=== PATIENT | male | born 1955 | race Hispanic/Latino ===

== ENCOUNTER 2017-08-01 14:17 | Emergency (ER) | payer SELFPAY ==
[~2017-08-01] VITALS: Ht 162.6 cm; Wt 68.0 kg
[2017-08-01 15:32] LABS: BASOPHILS # (AUTO) 0.1 (0.0-0.1); BASOPHILS % 0.7 % (0.0-1.0); EOSINOPHILS % 0.4 % (0.0-6.0); HEMATOCRIT 40.3 % (38.2-49.6); HEMOGLOBIN 14.3 g/dL (14.0-18.0); LYMPHOCYTES % 14.1 % (18.0-39.1); MEAN CORPUSCULAR HEMOGLOBIN 35.7 pg (28-32); MEAN CORPUSCULAR HGB CONC 35.5 g/dL (31-35); MEAN CORPUSCULAR VOLUME 100.5 fL (81-99); MONOCYTES # (AUTO) 0.7 (0.2-0.8); MONOCYTES % 10.1 % (4.4-11.3); NEUTROPHILS # (AUTO) 5.5 (2.1-6.9); NEUTROPHILS % 74.2 % (38.7-80.0); PLATELET COUNT 175 x10e3/uL (140-360); RED BLOOD COUNT 4.01 x10e6/uL (4.3-5.7); RED CELL DISTRIBUTION WIDTH 12.5 % (11.7-14.4)
[2017-08-01 15:36] LABS: INR 1.05; PARTIAL THROMBOPLASTIN TIME 28.6 seconds (23.8-35.5); PROTHROMBIN TIME 14.2 seconds (11.9-14.5)
[2017-08-01 15:43] LABS: ALANINE AMINOTRANSFERASE 37 IU/L (0-55); ALBUMIN 2.5 g/dL (3.5-5.0); ALBUMIN/GLOBULIN RATIO 0.6 (0.8-2.0); ALKALINE PHOSPHATASE 357 IU/L (40-150); ANION GAP 13.7 mmol/L (8-16); BLOOD UREA NITROGEN < 5 mg/dL (7-26); BUN/CREATININE RATIO 9 (6-25); CALCIUM 8.1 mg/dL (8.4-10.2); CARBON DIOXIDE 25 mmol/L (22-29); CHLORIDE 93 mmol/L (98-107); CREATININE, SERUM 0.57 mg/dL (0.72-1.25); EST GLOMERULAR FILTRATION RATE > 60 ML/MIN (60-); GLUCOSE 102 mg/dL (74-118); POTASSIUM 3.7 mmol/L (3.5-5.1); SODIUM 128 mmol/L (136-145)
--- NOTE | 2017-08-01 16:11 | Diagnostic Imaging Report ---
PROCEDURE: Frontal and lateral views of the chest. COMPARISON: None. INDICATIONS: SWOLLEN FEET, SICK TO STOMACH FINDINGS: Lines/tubes: None. Lungs: The lungs are well inflated and clear. There is no evidence of pneumonia or pulmonary edema. Mild left basilar subsegmental atelectasis. Pleura: There is no pleural effusion or pneumothorax. Heart and mediastinum: The heart and the mediastinum are normal. Aorta is mildly calcified and tortuous. Bones: No acute bony abnormality. IMPRESSION: 1. No acute cardiopulmonary disease. Dictated by: Herve Wallace M.D. on 08/01/2017 at 16:20 Electronically approved by: Herve Wallace M.D. on 08/01/2017 at 16:20
[2017-08-01 16:16] LABS: BILIRUBIN,URINE 1+ (NEGATIVE); CLARITY,URINE CLEAR (CLEAR); COLOR,URINE YELLOW (YELLOW); KETONES,URINE NEGATIVE (NEGATIVE); LEUKOCYTE ESTERASE ,URINE NEGATIVE (NEGATIVE); NITRITE,URINE NEGATIVE (NEGATIVE); PROTEIN,URINE DIPSTICK 2+ (NEGATIVE); URINE UROBILINOGEN 1 mg/dL (0.2 - 1)
[2017-08-01] MEDS ORDERED: IBUPROFEN 600 MG TAB PO STA (22:17)
[2017-08-01 22:29] LABS: AMYLASE 53 U/L (25-125); LIPASE 26 U/L (8-78)
[2017-08-01] MEDS ORDERED: MULTIVITAMINS- 12 INJECTION 10 ML, FOLIC ACID MDV 5 MG, THIAMINE HCL INJ 100 MG in SODI... IV ONE (22:30)
[2017-08-01] MEDS ORDERED: CHLORDIAZEPOXIDE HCL 25 MG CAP PO ONE (22:30)
[2017-08-01] MEDS ORDERED: SODIUM CHLORIDE 0.9% 50ML 50 ML ONE (23:27)
[2017-08-01] MEDS ORDERED: IOPAMIDOL 370 MG/ML 200 ML INFUS..BTL INJ ONE (23:28)
--- NOTE | 2017-08-02 00:19 | Diagnostic Imaging Report ---
EXAM: CT Abdomen and Pelvis WITH contrast INDICATION: Abdominal pain, swollen feet, prominent stomach COMPARISON: None. TECHNIQUE: Abdomen and pelvis were scanned utilizing a multidetector helical scanner from the lung base to the pubic symphysis after administration of IV contrast. Coronal and sagittal reformations were obtained. Routine protocol was performed. Scan was performed when during portal venous phase. IV CONTRAST: 100 mL of Isovue-370 ORAL CONTRAST: None RADIATION DOSE: Total DLP: 402.17 mGy*cm Estimated effective dose: (DLP x 0.015 x size factor) mSv COMPLICATIONS: None FINDINGS: LINES and TUBES: None. LOWER THORAX: Coronary artery calcifications are present. HEPATOBILIARY: The liver is diffuse hypodense compared to the spleen, consistent with diffuse hepatic diffuse hepatic steatosis. Areas of hypervascularity noted in segment 7 of the liver measuring 2.2 cm in diameter, series 2, image 11 and segment 6 measuring 2.7 cm in diameter series 2, image 32. The liver is mildly nodular. No biliary ductal dilation. GALLBLADDER: No radio-opaque stones or sludge. No wall thickening. SPLEEN: No splenomegaly. PANCREAS: No focal masses or ductal dilatation. ADRENALS: No adrenal nodules KIDNEYS/URETERS: Kidneys enhance symmetrically. No hydronephrosis. No cystic or solid mass lesions. No stones. GI TRACT: No abnormal distention, wall thickening, or evidence of bowel obstruction. Appendix is normal. PELVIC ORGANS/BLADDER: Unremarkable. LYMPH NODES: No lymphadenopathy. VESSELS: There is moderate atherosclerotic disease in the aorta and major arterial branches. PERITONEUM / RETROPERITONEUM: There is significant amount of free fluid in the abdomen. BONES: Unremarkable. SOFT TISSUES: Intramuscular lipoma at the level of the mid right iliacus muscle IMPRESSION: 1. Mildly nodular liver with areas of hypervascularity, ascites and anasarca are compatible with cirrhosis. Hypervascular masses in the liver may represent HCC in the appropriate clinical context. 2. Moderate atherosclerotic disease of the thoracoabdominal aorta and coronary vessels. Signed by: Dr. Hima Dhaliwal M.D. on 08/02/2017 12:15 AM
[2017-08-02] MEDS ORDERED: THIAMINE HCL INJ 100 MG/ML 2ML VIAL ONE (01:26)
[2017-08-02] MEDS ORDERED: MULTIVITAMINS INJECTION ONE (01:26)
[2017-08-02] MEDS ORDERED: SODIUM CHLORIDE 0.9% 1000ML 1,000 ML ONE (01:26)
== END 2017-08-02 04:42 | disposition home or self-care (01) ==
LOC: ER 14:17
DX: R10.30 Lower abdominal pain, unspecified (principal); R10.815 Periumbilic abdominal tenderness; K70.31 Alcoholic cirrhosis of liver with ascites; F10.19 Alcohol abuse with unspecified alcohol-induced disorder; R60.9 Edema, unspecified; I25.10 Atherosclerotic heart disease of native coronary artery without angina pectoris
CPT/HCPCS: 36415; 71020; 74177; 80053; 80320; 81001; 82140; 82150; 83690; 85025; 85610; 85730; 86850; 86900; 87086; 93005; 99284; J3411; J7030; Q9967

== ENCOUNTER 2017-09-23 17:51 | Inpatient (IN) | payer SELFPAY ==
[~2017-09-23] VITALS: Ht 165.1 cm; Wt 67.1 kg
--- OUTSIDE RECORDS SUMMARY | 2017-09-23 17:53 | XMS REPORT ---
Author Author [facility] Address Unknown Phone Unavailable Care Team Providers Care Billing Supervisor Name Role Phone ROSALINA MAN Unavailable Unavailable Problems This patient has no known problems. Allergies, Adverse Reactions, Alerts This patient has no known allergies or adverse reactions. Medications This patient has no known medications. Results Test Description Test Time Test Comments Text Results Atomic Results Result Comments CT ABDOMEN/PELVIS W [place] [address] Patient Name: MALIHA VALENTIN MR #: [id number] : 1955 Age/Sex: 61/M Req #: [id number] Adm Physician: Ordered by: TYLOR DE LA CRUZ MD Report # : [id number] Location: ER Room/Bed: Procedure: [id number] CT/CT ABDOMEN/PELVIS W Exam Date: 08/01/17 Exam Time: 2328 REPORT STATUS: Signed EXAM: CT Abdomen and Pelvis WITH contrast INDICATION: Abdominal pain, swollen feet, prominent stomach COMPARISON: None. TECHNIQUE: Abdomen and pelvis were scanned utilizing a multidetector helical scanner from the lung base to the pubic symphysis after administration of IV contrast. Coronal and sagittal reformations were obtained. Routine protocol was performed. Scan was performed when during portal venous phase. IV CONTRAST: 100 mL of Isovue-370 ORAL CONTRAST: None RADIATION DOSE: Total DLP: 402.17 mGy*cm Estimated effective dose: (DLP x 0.015 x size factor) mSv COMPLICATIONS: None FINDINGS: LINES and TUBES: None. LOWER THORAX: Coronary artery calcifications are present. HEPATOBILIARY: The liver is diffuse hypodense compared to the spleen, consistent with diffuse hepatic diffuse hepatic steatosis. Areas of hypervascularity noted in segment 7 of the liver measuring 2.2 cm in diameter, series 2, image 11 and segment 6 measuring 2.7 cm in diameter series 2, image 32. The liver is mildly nodular. No biliary ductal dilation. GALLBLADDER: No radio-opaque stones or sludge. No wall thickening. SPLEEN: No splenomegaly. PANCREAS: No focal masses or ductal dilatation. ADRENALS: No adrenal nodules KIDNEYS/URETERS: Kidneys enhance symmetrically. No hydronephrosis. No cystic or solid mass lesions. No stones. GI TRACT: No abnormal distention, wall thickening, or evidence of bowel obstruction. Appendix is normal. PELVIC ORGANS/BLADDER: Unremarkable. LYMPH NODES: No lymphadenopathy. VESSELS: There is moderate atherosclerotic disease in the aorta and major arterial branches. PERITONEUM / RETROPERITONEUM: There is significant amount of free fluid in the abdomen. BONES: Unremarkable. SOFT TISSUES: Intramuscular lipoma at the level of the mid right iliacus muscle IMPRESSION: 1. Mildly nodular liver with areas of hypervascularity, ascites and anasarca are compatible with cirrhosis. Hypervascular masses in the liver may represent HCC in the appropriate clinical context. 2. Moderate atherosclerotic disease of the thoracoabdominal aorta and coronary vessels. Signed by: Dr. Hima Dhaliwal M.D. on 08/02/2017 12:15 AM Dictated By: HIMA VAZQUEZ MD Transcribed By: URSULA on 08/02/1714 COPY TO: TYLOR DE LA CRUZ MD CHEST 2 VIEWS [place] [address] Patient Name: MALIHA VALENTIN MR #: [id number] : 1955 Age/Sex: 61/M Req #: [id number] Adm Physician: Ordered by: ROSALINA MAN MD Report #: [id number] Location: ER Room/Bed: Procedure: [id number] DX/CHEST 2 VIEWS Exam Date: Exam Time: REPORT STATUS: Signed PROCEDURE: Frontal and lateral views of the chest. COMPARISON: None. INDICATIONS: SWOLLEN FEET, SICK TO STOMACH FINDINGS: Lines/tubes: None. Lungs: The lungs are well inflated and clear. There is no evidence of pneumonia or pulmonary edema. Mild left basilar subsegmental atelectasis. Pleura: There is no pleural effusion or pneumothorax. Heart and mediastinum: The heart and the mediastinum are normal. Aorta is mildly calcified and tortuous. Bones: No acute bony abnormality. IMPRESSION: 1. No acute cardiopulmonary disease. Dictated by: Herve Quinonez M.D. on 08/01/2017 at 16:20 Electronically approved by: Herve Quinonez M.D. on 08/01/2017 at 16:20 Dictated By: HERVE QUINONEZ MD 162 Transcribed By: FIDELINA on 08/01/17 1620 COPY TO: ROSALINA MAN MD
[2017-09-23] MEDS ORDERED: ACETAMINOPHEN 325 MG TAB PO STA (18:50)
[2017-09-23 19:25] LABS: BASOPHILS % 0.3 % (0.0-1.0); EOSINOPHILS # (AUTO) 0.1 (0.0-0.4); EOSINOPHILS % 0.5 % (0.0-6.0); HEMATOCRIT 44.2 % (38.2-49.6); HEMOGLOBIN 15.8 g/dL (14.0-18.0); LYMPHOCYTES # (AUTO) 1.6 (1.0-3.2); LYMPHOCYTES % 13.7 % (18.0-39.1); MEAN CORPUSCULAR HEMOGLOBIN 34.6 pg (28-32); MEAN CORPUSCULAR HGB CONC 35.7 g/dL (31-35); MEAN CORPUSCULAR VOLUME 96.9 fL (81-99); MONOCYTES # (AUTO) 1.2 (0.2-0.8); MONOCYTES % 10.5 % (4.4-11.3); NEUTROPHILS # (AUTO) 8.6 (2.1-6.9); NEUTROPHILS % 74.7 % (38.7-80.0); PLATELET COUNT 192 x10e3/uL (140-360); RED BLOOD COUNT 4.56 x10e6/uL (4.3-5.7); RED CELL DISTRIBUTION WIDTH 12.3 % (11.7-14.4)
[2017-09-23 19:29] LABS: BILIRUBIN,URINE 2+ (NEGATIVE); CLARITY,URINE SL CLOUDY (CLEAR); COLOR,URINE ORANGE (YELLOW); KETONES,URINE 1+ (NEGATIVE); LEUKOCYTE ESTERASE ,URINE 1+ (NEGATIVE); NITRITE,URINE POSITIVE (NEGATIVE); PROTEIN,URINE DIPSTICK 1+ (NEGATIVE); URINE UROBILINOGEN 12 mg/dL (0.2 - 1)
[2017-09-23 19:36] LABS: INR 1.36; PROTHROMBIN TIME 15.8 seconds (11.9-14.5)
[2017-09-23 19:37] LABS: PARTIAL THROMBOPLASTIN TIME 31.4 seconds (23.8-35.5)
[2017-09-23 19:40] LABS: EPITHELIAL CELLS,URINE FEW /LPF; MUCUS,URINE MODERATE (RARE); WBC,URINE (MAN) 0-5 /HPF (0-5)
[2017-09-23 19:43] LABS: ALANINE AMINOTRANSFERASE 11 IU/L (0-55); ALBUMIN/GLOBULIN RATIO 0.8 (0.8-2.0); ALKALINE PHOSPHATASE 98 IU/L (40-150); ANION GAP 12.8 mmol/L (8-16); BLOOD UREA NITROGEN < 5 mg/dL (7-26); CALCIUM 8.7 mg/dL (8.4-10.2); CARBON DIOXIDE 26 mmol/L (22-29); CHLORIDE 99 mmol/L (98-107); CREATININE, SERUM 0.54 mg/dL (0.72-1.25); EST GLOMERULAR FILTRATION RATE > 60 ML/MIN (60-); GLUCOSE 116 mg/dL (74-118); SODIUM 135 mmol/L (136-145)
--- NOTE | 2017-09-23 19:51 | Diagnostic Imaging Report ---
EXAMINATION: CHEST 2 VIEWS INDICATION: \S\SEPSIS \[id number] \S\1910 \S\Y COMPARISON: CT abdomen and pelvis from 08/01/2017 and chest radiograph from 08/01/2017 FINDINGS: PA and lateral views TUBES and LINES: None. LUNGS: Lungs are well inflated. Mild atelectasis in the left lower lobe. There is no evidence of pneumonia or pulmonary edema. PLEURA: No pleural effusion or pneumothorax. HEART AND MEDIASTINUM: The cardiomediastinal silhouette is unremarkable. Coronary stent. BONES AND SOFT TISSUES: No acute osseous lesion. Soft tissues are unremarkable. UPPER ABDOMEN: No free air under the diaphragm. Persistent mild elevation of the right hemidiaphragm. IMPRESSION: No acute thoracic abnormality. Signed by: Dr. Oriana Gutierrez M.D. on 09/23/2017 7:48 PM
[2017-09-23 19:52] LABS: BUN/CREATININE RATIO 9 (6-25)
[2017-09-23 19:53] LABS: POTASSIUM 2.8 mmol/L (3.5-5.1)
[2017-09-23 19:58] LABS: CREATINE KINASE MB 0.7 ng/mL (0-5.0)
[2017-09-23 20:22] LABS: AMYLASE 22 U/L (25-125); LIPASE 7 U/L (8-78)
[2017-09-23] MEDS ORDERED: METRONIDAZOLE 500MG/NS 100ML IV SCH (20:30)
[2017-09-23] MEDS ORDERED: CEFEPIME HCL 2 GM VIAL IV SCH (20:30)
[2017-09-23] MEDS ORDERED: ACETAMINOPHEN 325 MG TAB PO PRN (20:30)
[2017-09-23] MEDS ORDERED: KCL 20MEQ/.9 SOD CHL 1,000 ML IV ONE (20:30)
[2017-09-23] MEDS: CEFEPIME HCL 2 GM VIAL IV SCH (21:15)
[2017-09-23] MEDS: METRONIDAZOLE 500MG/NS 100ML 100 ML IV SCH (22:22)
[2017-09-23 22:45] VITALS: BP 204/79
[2017-09-24] VITALS (8 sets, daily range): BP systolic 123–204; BP diastolic 79–99
[2017-09-24] MEDS: METRONIDAZOLE 500MG/NS 100ML 100 ML IV SCH ×4 (03:00→20:32)
[2017-09-24 07:56] LABS: BASOPHILS % 0.5 % (0.0-1.0); EOSINOPHILS # (AUTO) 0.1 (0.0-0.4); EOSINOPHILS % 0.8 % (0.0-6.0); HEMATOCRIT 40.2 % (38.2-49.6); HEMOGLOBIN 14.3 g/dL (14.0-18.0); LYMPHOCYTES # (AUTO) 1.2 (1.0-3.2); LYMPHOCYTES % 14.8 % (18.0-39.1); MEAN CORPUSCULAR HEMOGLOBIN 34.5 pg (28-32); MEAN CORPUSCULAR HGB CONC 35.6 g/dL (31-35); MEAN CORPUSCULAR VOLUME 97.1 fL (81-99); MONOCYTES % 11.6 % (4.4-11.3); NEUTROPHILS % 72.1 % (38.7-80.0); PLATELET COUNT 153 x10e3/uL (140-360); RED BLOOD COUNT 4.14 x10e6/uL (4.3-5.7); RED CELL DISTRIBUTION WIDTH 12.3 % (11.7-14.4)
[2017-09-24 08:21] LABS: ALANINE AMINOTRANSFERASE 9 IU/L (0-55); ALBUMIN 2.5 g/dL (3.5-5.0); ALBUMIN/GLOBULIN RATIO 0.8 (0.8-2.0); ALKALINE PHOSPHATASE 84 IU/L (40-150); BLOOD UREA NITROGEN 5 mg/dL (7-26); BUN/CREATININE RATIO 11 (6-25); CARBON DIOXIDE 24 mmol/L (22-29); CHLORIDE 104 mmol/L (98-107); CREATININE, SERUM 0.46 mg/dL (0.72-1.25); EST GLOMERULAR FILTRATION RATE > 60 ML/MIN (60-); GLUCOSE 112 mg/dL (74-118); SODIUM 137 mmol/L (136-145)
[2017-09-24] MEDS ORDERED: HYDRALAZINE HCL 20 MG/ML VIAL IV PRN (08:30)
[2017-09-24] MEDS ORDERED: METOPROLOL TARTRATE INJ 1 MG/ML VIAL IV PRN (08:30)
[2017-09-24] MEDS: CEFEPIME HCL 2 GM VIAL IV SCH ×2 (09:11→20:32)
[2017-09-24] MEDS: POTASSIUM CHLORIDE 20 MEQ TAB CR PO SCH ×2 (09:11→17:35)
[2017-09-24] MEDS ORDERED: MAGNESIUM SULFATE 2GM/50ML IV ONE (16:30)
[2017-09-24] MEDS ORDERED: LORAZEPAM INJ 2 MG/ML VIAL IV PRN (16:30)
[2017-09-24] MEDS ORDERED: MAGNESIUM SULFATE 2GM/50ML 50 ML IV ONE (17:00)
[2017-09-24] MEDS ORDERED: POTASSIUM CHLORIDE 20 MEQ TAB CR PO ONE (17:00)
[2017-09-24] MEDS: PANTOPRAZOLE SOD 40 MG TABEC PO SCH (17:34)
[2017-09-24] MEDS: METOPROLOL TARTRATE 25 MG TAB PO SCH ×2 (17:34→20:18)
[2017-09-24] MEDS ORDERED: SODIUM CHLORIDE 0.9% 1000ML 1,000 ML ONE ×2 (20:11→20:13)
[2017-09-25] MEDS: METRONIDAZOLE 500MG/NS 100ML 100 ML IV SCH ×4 (03:09→20:36)
[2017-09-25 04:00] VITALS: BP 123/71
[2017-09-25 07:10] VITALS: BP 140/91
[2017-09-25 07:29] VITALS: BP 140/91
[2017-09-25] MEDS: PANTOPRAZOLE SOD 40 MG TABEC PO SCH (07:56)
[2017-09-25 08:13] LABS: BASOPHILS % 0.7 % (0.0-1.0); EOSINOPHILS # (AUTO) 0.1 (0.0-0.4); EOSINOPHILS % 1.4 % (0.0-6.0); HEMATOCRIT 41.2 % (38.2-49.6); HEMOGLOBIN 14.5 g/dL (14.0-18.0); LYMPHOCYTES # (AUTO) 1.4 (1.0-3.2); LYMPHOCYTES % 24.4 % (18.0-39.1); MEAN CORPUSCULAR HEMOGLOBIN 34.7 pg (28-32); MEAN CORPUSCULAR HGB CONC 35.2 g/dL (31-35); MEAN CORPUSCULAR VOLUME 98.6 fL (81-99); MONOCYTES # (AUTO) 0.8 (0.2-0.8); MONOCYTES % 13.7 % (4.4-11.3); NEUTROPHILS # (AUTO) 3.5 (2.1-6.9); NEUTROPHILS % 59.6 % (38.7-80.0); PLATELET COUNT 157 x10e3/uL (140-360); RED BLOOD COUNT 4.18 x10e6/uL (4.3-5.7); RED CELL DISTRIBUTION WIDTH 12.5 % (11.7-14.4)
[2017-09-25 08:27] LABS: INR 1.62; PROTHROMBIN TIME 18.1 seconds (11.9-14.5)
[2017-09-25 08:36] LABS: ANION GAP 12.5 mmol/L (8-16); BLOOD UREA NITROGEN < 5 mg/dL (7-26); CALCIUM 8.1 mg/dL (8.4-10.2); CARBON DIOXIDE 21 mmol/L (22-29); CHLORIDE 108 mmol/L (98-107); CREATININE, SERUM 0.47 mg/dL (0.72-1.25); EST GLOMERULAR FILTRATION RATE > 60 ML/MIN (60-); GLUCOSE 97 mg/dL (74-118); MAGNESIUM 1.5 MG/DL (1.3-2.1); POTASSIUM 3.5 mmol/L (3.5-5.1); SODIUM 138 mmol/L (136-145)
[2017-09-25 08:41] LABS: BUN/CREATININE RATIO 11 (6-25)
[2017-09-25] MEDS: POTASSIUM CHLORIDE 20 MEQ TAB CR PO SCH ×2 (09:09→17:26)
[2017-09-25] MEDS: CEFEPIME HCL 2 GM VIAL IV SCH ×2 (09:09→20:36)
[2017-09-25] MEDS: METOPROLOL TARTRATE 25 MG TAB PO SCH ×2 (09:10→20:37)
[2017-09-25 10:11] LABS: FREE T4 (FREE THYROXINE) 1.15 ng/dL (0.9-1.8); THYROID STIMULATING HORMONE 3.817 uIU/mL (0.350-4.940)
[2017-09-25 11:22] VITALS: BP 120/81
--- NOTE | 2017-09-25 15:27 | History and Physical ---
PRIMARY CARE PROVIDER: Dr. Titus Schofield CHIEF COMPLAINT: Fever, chills, and diarrhea. HISTORY OF PRESENT ILLNESS: Mr. Mccarthy is a 61-year-old gentleman who has alcohol-induced cirrhosis, who has developed ascites. He had a paracentesis done in July 2 months ago, it has reaccumulated. He presents with abdominal pain, distention related to the ascites, but also with fever, chills, and diarrhea that has been going on for the last couple of days with cramping abdominal pain. REVIEW OF SYSTEMS: He has had subjective fever and chills. HE denies sinus congestion or sore throat. He denies chest pain or palpitations. He denies shortness of breath, wheezing, or cough. He has abdominal pain with diarrhea. He denies nausea, vomiting, but he does have some abdominal distention and ascites and a history of cirrhosis. He denies bleeding or bruising. He denies rash or pruritus. He denies joint pain or swelling. He denies headache, vertigo, or loss of consciousness. He denies depression, agitation, homicidal or suicidal ideation. He is an active alcoholic. PAST MEDICAL HISTORY: Significant for long-standing hypertension, coronary artery disease with previous coronary stents, hyperlipidemia, and alcohol-induced cirrhosis. MEDICATIONS: The patient does not know what medicine he is taking if any. PAST SURGICAL HISTORY: He denies any previous surgery except for the coronary stent. ALLERGIES: HE HAS NO KNOWN DRUG ALLERGIES. FAMILY HISTORY: Remarkable for hypertension. SOCIAL HISTORY: The patient is . He is bilingual, speaks good Swedish. He continues to drink hard liquor on a daily basis. He also continues to smoke on a daily basis. He is . He is here with his . He is independently functioning. PHYSICAL EXAMINATION: PSYCHIATRIC: He is alert and oriented x3 with normal mood and affect. CONSTITUTIONAL: He has a normal body habitus, may be a little overweight. He is in no acute distress. VITAL SIGNS: As follows: Blood pressure 151/99, pulse 103 and regular, respiratory rate 16, O2 sat 96% on room air. Temperature 96.4. His T-max 100.7 on admission. HEENT: His head is atraumatic. His eyes are anicteric with clear conjunctivae. Ears and nares are without erythema or discharge. Oropharynx is clear. NECK: Supple with no mass or thyromegaly. LYMPHATIC SYSTEM: He has no palpable cervical, axillary, or inguinal adenopathy. CARDIOVASCULAR SYSTEM: His heart has a regular rate and rhythm without murmur or extra heart sounds. He has no carotid bruit. He has no peripheral edema. He has weak dorsal pedal pulses. RESPIRATORY: Lungs are clear to auscultation and percussion with normal respiratory effort. GASTROINTESTINAL: His abdomen is moderate to markedly distended, tense ascites with a fluid wave. He has no hepatosplenomegaly or masses palpable, and normal bowel sounds are present. He has some mild diffuse tenderness with no rebound or guarding. CUTANEOUS: His skin is warm and dry to touch with no rash or skin breakdown. MUSCULOSKELETAL: His joints are in normal alignment without erythema or swelling. He has no calf tenderness. NEUROLOGIC: Nonfocal with intact cranial nerves and no motor or sensory deficits. DIAGNOSTIC STUDIES: Chest x-ray shows no acute disease. His UA is clear. His troponin 0.017, which is normal. Lactic acid 15.3, which is normal. Chemistry shows a potassium of 2.8, the rest of his electrolytes are normal. CO2 26, creatinine 0.54, BUN 5 for a normal GFR, calcium 8.7, glucose 116. Amylase 22, lipase 7, bilirubin 1.4. His transaminases and alk phos are normal. Pro time is 15.8 with an INR of 1.36 and PTT of 31.4. CBC shows a white count of 11.58 with 75% neutrophils, 14% lymphocytes, hemoglobin of 15.8, hematocrit 44.2, and platelet count 192,000. IMPRESSION AND PLAN: 1. Enterocolitis. The patient is started on intravenous cefepime and Flagyl empirically. 2. Cirrhosis with tense ascites. Ultrasound-guided paracentesis has been ordered. 3. Coagulopathy due to cirrhosis. Patient's INR 1.36, should be adequate for the patient to get a paracentesis. Will hold off any fresh frozen plasma or factors at the moment. 4. Hypertension with coronary artery disease. The patient will be getting p.r.n. intravenous hydralazine and metoprolol. Will place the patient on scheduled beta radha. Will hold his aspirin at this time until after his paracentesis. 5. Hypokalemia. Will check a magnesium level and replace potassium with both intravenous and p.o. potassium. 6. For prophylaxis, the patient will be on Protonix for gastrointestinal prophylaxis. No need for deep venous thrombosis prophylaxis as he is already auto anticoagulated. Job#: [id number]
[2017-09-25 15:30] VITALS: BP 129/91
[2017-09-25] MEDS ORDERED: MAGNESIUM SULFATE 2GM/50ML 50 ML IV ONE (18:00)
[2017-09-25 20:00] VITALS: BP 147/97
[2017-09-26] VITALS: BP 113/81
[2017-09-26] MEDS: METRONIDAZOLE 500MG/NS 100ML 100 ML IV SCH ×3 (03:00→17:10)
[2017-09-26 04:00] VITALS: BP 137/83
[2017-09-26 06:54] LABS: ANION GAP 10.6 mmol/L (8-16); BLOOD UREA NITROGEN 5 mg/dL (7-26); BUN/CREATININE RATIO 10 (6-25); CARBON DIOXIDE 22 mmol/L (22-29); CHLORIDE 107 mmol/L (98-107); CREATININE, SERUM 0.52 mg/dL (0.72-1.25); EST GLOMERULAR FILTRATION RATE > 60 ML/MIN (60-); GLUCOSE 114 mg/dL (74-118); MAGNESIUM 1.5 MG/DL (1.3-2.1); POTASSIUM 3.6 mmol/L (3.5-5.1); SODIUM 136 mmol/L (136-145)
[2017-09-26] MEDS: PANTOPRAZOLE SOD 40 MG TABEC PO SCH (07:30)
[2017-09-26 08:00] VITALS: BP 139/82
[2017-09-26] MEDS: POTASSIUM CHLORIDE 20 MEQ TAB CR PO SCH ×2 (09:00→17:10)
[2017-09-26] MEDS: METOPROLOL TARTRATE 25 MG TAB PO SCH (09:00)
[2017-09-26] MEDS: CEFEPIME HCL 2 GM VIAL IV SCH (09:11)
[2017-09-26] MEDS ORDERED: MAGNESIUM SULFATE 2GM/50ML 50 ML IV ONE (11:45)
--- NOTE | 2017-09-26 13:01 | Diagnostic Imaging Report ---
PROCEDURE:US GUIDED PARACENTESIS COMPARISON:None. INDICATIONS:Not provided. FINDINGS: After informed consent was obtained, focused abdominal ultrasound identified a safe entry route into the free ascitic fluid in the right lower quadrant of the abdomen. The overlying skin was prepped and draped in sterile fashion. Lidocaine 1% was used for local anesthesia. Under ultrasound guidance, a 5 Fr ciValueesis needle was advanced into the ascitic fluid, the needle was removed and the catheter attached to vacuum bottle. 4,500cc of ascitic fluid were aspirated. The catheter was removed. There was <1cc blood loss and no complications. Samples were sent to the laboratory for analysis. CONCLUSION: Uncomplicated ultrasound-guided paracentesis with removal of 4,500 cc's of fluid. Kerwin Acevedo D.O. Dictated by: Kerwin Acevedo D.O. on 09/26/2017 at 13:01 Electronically approved by: Kerwin Acevedo D.O. on 09/26/2017 at 13:01
[2017-09-26] MEDS ORDERED: ACETAMINOPHEN325 M1 PO (13:54)
[2017-09-26] MEDS ORDERED: MAGNESIUM OXID400 MG PO (13:54)
[2017-09-26] MEDS ORDERED: LOPRESSOR25 MG PO (13:54)
[2017-09-26] MEDS ORDERED: KLOR-CON M2020 MEQ PO (13:54)
--- NOTE | 2017-09-26 15:31 | Discharge Summary ---
PERTINENT HISTORY AND PHYSICAL FINDINGS: The patient's primary care doctor is Dr. Thad Schofield. Mr. Mccarthy is a 61-year-old gentleman who has alcohol-induced cirrhosis, who developed ascites and was admitted to [facility] on September 23, 2017, with fever, chills and diarrhea. He had a paracentesis done in July which has reaccumulated. He presented with abdominal pain, distention related to the ascites, but also with the fever, chills and diarrhea that had been going on for a couple of days prior to admission with cramping abdominal pain. Past medical history is significant for long-standing hypertension, coronary artery disease with previous coronary stents, hyperlipidemia and alcohol-induced cirrhosis. Past surgical history is negative except for the coronary stent. FAMILY HISTORY: Remarkable for hypertension. NO KNOWN ALLERGIES. SOCIAL HISTORY: The patient is . He is bilingual, speaks good Bel[place]ian. He continues to drink hard liquor on a daily basis. He also continues to smoke on a daily basis. He is and is here with his . He is independently functioning. On admission the chest x-ray showed no acute disease. His urinalysis was clear. Troponin 0.017, which is normal. Lactic acid 15.3, which is normal. Chemistry shows a potassium of 2.8. The rest of his electrolytes are normal. CO2 26, creatinine 0.54, BUN 5 for a normal GFR, calcium 8.7, glucose 116. Amylase 22, lipase 7, bilirubin 1.4. His transaminases and alkaline phosphatase were normal. Pro time 15.8 with an INR of 1.36 and a PTT of 31.4. CBC showed a white blood cell count of 11.58 with 75% neutrophils, 14% lymphocytes, hemoglobin of 15.8, hematocrit of 44.2 and a platelet count 192,000. ADMITTING DIAGNOSES: Included 1. Enterocolitis. 2. Cirrhosis with tense ascites. 1. Coagulopathy due to cirrhosis. 2. Hypertension with coronary artery disease. 3. Hypokalemia. When the patient was seen yesterday, he denied any chills or diarrhea. During his stay he was given Flagyl IV q.6 h. as well as cefepime 2 g IV q.12 h. The patient had an ultrasound-guided paracentesis today, on September 26, in which 4.5 liters were removed. Yesterday his magnesium was 1.5 and he was given 2 g of magnesium sulfate. B-type natriuretic peptide yesterday 240.8. TSH 3.817. Free T4, 1.15. DISCHARGE DIAGNOSES 1. Enterocolitis. 2. Cirrhosis with tense ascites. 3. Coagulopathy due to cirrhosis. 4. Hypertension with coronary artery disease. 5. Hypokalemia. Today sodium 136, potassium 3.6, chloride 107, CO2 22, BUN 5, creatinine 0.52, GFR greater than 60, glucose 114. Today his magnesium was again 1.5. Therefore, will send the patient home on magnesium oxide 400 mg p.o. t.i.d. The patient is to follow up with his PCP in 1 to 2 weeks. Activity level as tolerated. I have asked the surgical attendant to speak with the patient's regarding a hepatic diet due to the underlying alcohol cirrhosis. Today the patient denies any chills, abdominal pain or diarrhea. PHYSICAL EXAMINATION VITAL SIGNS: Temperature 97.6, heart rate 91, blood pressure 139/82 with a MAP of 101, respirations 20, oxygen saturation 94% on room air. GENERAL: No acute distress, supine in bed. LUNGS: Clear, even and unlabored. HEENT: Extraocular eye movements intact. NECK: Supple. No lymphadenopathy. CARDIOVASCULAR: Regular rate and rhythm. No murmur. ABDOMEN: Bowel sounds positive. Soft. Slightly distended but improved post paracentesis. Nontender. Bowel sounds x4 quadrants. EXTREMITIES: Without pitting edema. No clubbing, cyanosis. No signs or symptoms of DVT. NEUROLOGICAL: GCS 14 to 15. Mildly confused. Nonfocal. SKIN: Dry bilateral lower extremities. Patient disposition is home without home health. Dictated by: Tayo Tim NP THAD RHODES MD Job#: [id number]
[2017-09-26 16:00] VITALS: BP 131/78
== END 2017-09-26 18:44 | disposition home or self-care (01) | DRG 433 ==
LOC: ER 17:51 → ERHOLD 20:29 → MED/SURG3 22:32
PROVIDERS: ADMIT Internal Medicine; ATTEND Internal Medicine
PROC: 0W9G3ZX Drainage of Peritoneal Cavity, Percutaneous Approach, Diagnostic (ICD-10-PCS; principal; 2017-09-26)
DX: K70.31 Alcoholic cirrhosis of liver with ascites (principal); D68.4 Acquired coagulation factor deficiency; F10.20 Alcohol dependence, uncomplicated; I25.10 Atherosclerotic heart disease of native coronary artery without angina pectoris; Z95.1 Presence of aortocoronary bypass graft; E87.6 Hypokalemia; F17.210 Nicotine dependence, cigarettes, uncomplicated; K52.9 Noninfective gastroenteritis and colitis, unspecified
CPT/HCPCS: 36415; 49083; 71046; 80048; 80053; 81001; 82140; 82150; 82550; 82553; 83605; 83690; 83735; 83880; 84439; 84443; 84484; 85025; 85610; 85730; 87040; 87086; 88112; 88305; 93005; 96367; 99284; J0692; J7030

== ENCOUNTER 2019-09-03 15:54 | Emergency (ER) | payer MEDICARE ==
[~2019-09-03] VITALS: Ht 165.1 cm; Wt 67.1 kg
[~2019-09-03 15:54] MED LIST: ACETAMINOPHEN325 M1 PO; KLOR-CON M2020 MEQ PO; LOPRESSOR25 MG PO; MAGNESIUM OXID400 MG PO
[2019-09-03 16:55] LABS: BASOPHILS % 0.6 % (0.0-1.0); EOSINOPHILS # (AUTO) 0.1 (0.0-0.4); EOSINOPHILS % 1.9 % (0.0-6.0); HEMATOCRIT 39.3 % (38.2-49.6); HEMOGLOBIN 13.7 g/dL (14.0-18.0); LYMPHOCYTES # (AUTO) 1.8 (1.0-3.2); LYMPHOCYTES % 25.7 % (18.0-39.1); MEAN CORPUSCULAR HEMOGLOBIN 35.4 pg (28-32); MEAN CORPUSCULAR HGB CONC 34.9 g/dL (31-35); MEAN CORPUSCULAR VOLUME 101.6 fL (81-99); MONOCYTES # (AUTO) 0.9 (0.2-0.8); MONOCYTES % 12.4 % (4.4-11.3); NEUTROPHILS # (AUTO) 4.1 (2.1-6.9); NEUTROPHILS % 59.3 % (38.7-80.0); PLATELET COUNT 138 x10e3/uL (140-360); RED BLOOD COUNT 3.87 x10e6/uL (4.3-5.7)
[2019-09-03 17:06] LABS: INR 1.36; PROTHROMBIN TIME 17.7 seconds (11.9-14.5)
[2019-09-03 17:12] LABS: CLARITY,URINE SL CLOUDY (CLEAR); COLOR,URINE ORANGE (YELLOW); KETONES,URINE TRACE (NEGATIVE); LEUKOCYTE ESTERASE ,URINE NEGATIVE (NEGATIVE); NITRITE,URINE NEGATIVE (NEGATIVE); PROTEIN,URINE DIPSTICK 1+ (NEGATIVE)
[2019-09-03 17:13] LABS: BILIRUBIN,URINE 2+ (NEGATIVE)
[2019-09-03 17:14] LABS: ALANINE AMINOTRANSFERASE 17 IU/L (0-55); ALBUMIN 2.7 g/dL (3.5-5.0); ALBUMIN/GLOBULIN RATIO 0.7 (0.8-2.0); ALKALINE PHOSPHATASE 111 IU/L (40-150); ANION GAP 12.4 mmol/L (8-16); BLOOD UREA NITROGEN 12 mg/dL (7-26); BUN/CREATININE RATIO 17 (6-25); CALCIUM 8.8 mg/dL (8.4-10.2); CARBON DIOXIDE 29 mmol/L (22-29); CHLORIDE 97 mmol/L (98-107); CREATININE, SERUM 0.71 mg/dL (0.72-1.25); EST GLOMERULAR FILTRATION RATE > 60 ML/MIN (60-); GLUCOSE 106 mg/dL (74-118); LIPASE 9 U/L (8-78); POTASSIUM 3.4 mmol/L (3.5-5.1); SODIUM 135 mmol/L (136-145)
[2019-09-03 17:25] LABS: WBC,URINE (MAN) 0-5 /HPF (0-5)
[2019-09-03 17:26] LABS: AMORPHOUS SEDIMENT,URINE MODERATE (FEW); BACTERIA,URINE MODERATE /HPF; EPITHELIAL CELLS,URINE FEW /LPF; RENAL EPITHELIAL CELLS,URINE RARE
[2019-09-03] MEDS ORDERED: SODIUM CHLORIDE 0.9% 50ML 50 ML ONE (18:19)
[2019-09-03] MEDS ORDERED: IOPAMIDOL 370 MG/ML 200 ML INFUS..BTL INJ ONE (18:19)
--- NOTE | 2019-09-03 19:47 | Diagnostic Imaging Report ---
EXAM: CT Abdomen and Pelvis WITH contrast INDICATION: ^abdominal distension ^[id number] ^1745 COMPARISON: CT abdomen/pelvis, 08/08/2019, 08/01/2017 TECHNIQUE: Abdomen and pelvis were scanned utilizing a multidetector helical scanner from the lung base to the pubic symphysis after administration of IV contrast. Coronal and sagittal reformations were obtained. Routine protocol was performed. Scan was performed when during portal venous phase. Dose modulation, iterative reconstruction, and/or weight based adjustment of the mA/kV was utilized to reduce the radiation dose to as low as reasonably achievable. IV CONTRAST: 100 mL of Isovue-370 ORAL CONTRAST: Water RADIATION DOSE: Total DLP: 467.13 mGy*cm Estimated effective dose: (DLP x 0.015 x size factor) mSv COMPLICATIONS: None FINDINGS: LINES and TUBES: None. LOWER THORAX: Atelectasis is noted at both lung bases. The heart is upper normal size with extensive coronary artery calcification seen. HEPATOBILIARY: The liver appears small with nodular border compatible with cirrhosis. A 9 mm hypodensity is seen in the right lobe adjacent to the gallbladder, stable from last exam. Hypervascular areas noted on the exam of 08/01/2017 are not apparent, possibly due to bolus timing. No biliary ductal dilation. GALLBLADDER: No radio-opaque stones or sludge. No wall thickening. SPLEEN: No splenomegaly. PANCREAS: No focal masses or ductal dilatation. ADRENALS: No adrenal nodules KIDNEYS/URETERS: Kidneys enhance symmetrically. No hydronephrosis. No cystic or solid mass lesions. No stones. GI TRACT: No abnormal distention, wall thickening, or evidence of bowel obstruction. Moderate retained stool in the colon and rectum. The appendix is not specifically visualized. PELVIC ORGANS/BLADDER: Urinary bladder appears unremarkable. Calcifications are seen in the prostate. No discrete abnormal mass or fluid collection. LYMPH NODES: No dominant lymph node mass is seen in the abdomen, retroperitoneum or pelvis. VESSELS: Aortoiliac vessels are atherosclerotic with extensive calcified plaque. No aneurysm. Extensive calcifications involving the superior mesenteric artery likely reflect stenosis. IVC and portal system appear unremarkable. The portal vein is patent and measures approximately 1.2 cm. PERITONEUM / RETROPERITONEUM: There is a large volume of ascites which has increased since the previous exam. Mesenteric edema is present. BONES: No acute or suspicious bony lesions. SOFT TISSUES: Superficial surrounding soft tissue again shows bilateral inguinal hernias containing fluid. IMPRESSION: 1. Cirrhotic liver again noted. A hypodensity in the right lobe is stable from previous examinations and may be due to a cyst. Hypervascular areas noted on the CT of 2018 are not identified, possibly due to bolus timing. 2. Moderately large volume of ascites which has increased since the most recent exam. Bilateral inguinal hernias containing ascites fluid are again noted. 3. Extensive atherosclerotic calcification is seen in the aortoiliac vessels, coronary arteries and superior mesenteric artery. Staff: Jerome Signed by: Dr. Elan Cano M.D. on 09/03/2019 7:45 PM
[2019-09-03 21:19] VITALS: BP 119/81
== END 2019-09-03 21:29 | disposition home or self-care (01) ==
LOC: ER 15:54
DX: R10.9 Unspecified abdominal pain (principal); R11.0 Nausea; R18.8 Other ascites; K74.60 Unspecified cirrhosis of liver
CPT/HCPCS: 36415; 74177; 80053; 80320; 81001; 83690; 83880; 85025; 85610; 99284; Q9967

== ENCOUNTER → 2019-09-11 | Outpatient (CLI) | payer MEDICARE ==
[2019-09-11 08:51] LABS: HEMOGLOBIN 14.4 g/dL (14.0-18.0)
[2019-09-11 09:02] LABS: INR 1.29; PROTHROMBIN TIME 16.9 seconds (11.9-14.5)
[2019-09-11 15:22] LABS: RBC,BODY FLUID 87 cells/uL; WBC,BODY FLUID 87 cells/uL
[2019-09-11 15:43] LABS: LYMPHOCYTES,BODY FLUID 57 %; MONO/MACROPHG,BODY FLUID 9 %; NEUTROPHILS,BODY FLUID 9 %; OTHER CELLS,BODY FLUID 25 %
[2019-09-11 15:51] LABS: BODY FLUID APPEARANCE SL.CLOUDY; BODY FLUID COLOR YELLOW; BODY FLUID TYPE PERITONEAL
--- NOTE | 2019-09-12 08:44 | Diagnostic Imaging Report ---
EXAM: US LIVER DATE: 09/11/2019 8:28 AM INDICATION: Cirrhosis COMPARISON: CT abdomen/pelvis with contrast from 09/03/2019 FINDINGS: The pancreas is not well-visualized secondary to prominent adjacent bowel gas. The liver is normal in size measuring 13.0 cm in length and demonstrates a nodular contour compatible with patient's history of cirrhosis. No focal hepatic abnormality is identified. The main portal vein is patent with a ventricular diameter of 1.1 cm. The gallbladder is unremarkable. There is no evidence for shadowing stones, wall thickening, or pericholecystic fluid. There is no intra or extrahepatic biliary ductal dilatation. The common bile duct measures 2 mm. Sonographic Gabriel's sign is negative. The right kidney is normal in size measuring 9.7 cm in length with normal cortical thickness and echogenicity. There is no evidence for solid renal mass, hydronephrosis, or shadowing calculi. The aorta and IVC are not well-visualized secondary to prominent overlying bowel gas. There is a large volume of ascites present. IMPRESSION: Sonographic findings suggestive of cirrhosis. No focal hepatic abnormality is identified. Ascites. Signed by: Dr. Jere Beck MD on 09/12/2019 8:41 AM
== END ==
LOC: US 08:17
PROVIDERS: ATTEND Internal Medicine Gastroenterology
DX: R18.8 Other ascites (principal); K74.60 Unspecified cirrhosis of liver
CPT/HCPCS: 36415; 49083; 76705; 82040; 82150; 82945; 83615; 83690; 83986; 84157; 84478; 85014; 85049; 85610; 85730; 87070; 87116; 87205; 87206; 88112; 88305; 89051

== ENCOUNTER 2019-09-24 14:12 | Inpatient (IN) | payer MEDICARE ==
[~2019-09-24] VITALS: Ht 165.1 cm; Wt 67.1 kg
[2019-09-24 15:12] LABS: BASOPHILS # (AUTO) 0.1 (0.0-0.1); BASOPHILS % 0.8 % (0.0-1.0); EOSINOPHILS # (AUTO) 0.1 (0.0-0.4); EOSINOPHILS % 0.8 % (0.0-6.0); HEMATOCRIT 40.9 % (38.2-49.6); HEMOGLOBIN 13.8 g/dL (14.0-18.0); LYMPHOCYTES # (AUTO) 1.6 (1.0-3.2); LYMPHOCYTES % 21.2 % (18.0-39.1); MEAN CORPUSCULAR HEMOGLOBIN 34.2 pg (28-32); MEAN CORPUSCULAR HGB CONC 33.7 g/dL (31-35); MEAN CORPUSCULAR VOLUME 101.2 fL (81-99); MONOCYTES # (AUTO) 0.8 (0.2-0.8); MONOCYTES % 11.1 % (4.4-11.3); NEUTROPHILS % 65.8 % (38.7-80.0); PLATELET COUNT 142 x10e3/uL (140-360); RED BLOOD COUNT 4.04 x10e6/uL (4.3-5.7); RED CELL DISTRIBUTION WIDTH 12.4 % (11.7-14.4)
[2019-09-24 15:22] LABS: INR 1.21; PROTHROMBIN TIME 16.1 seconds (11.9-14.5)
[2019-09-24 15:23] LABS: PARTIAL THROMBOPLASTIN TIME 33.2 seconds (23.8-35.5)
[2019-09-24 15:29] LABS: ALANINE AMINOTRANSFERASE 23 IU/L (0-55); ALBUMIN 2.8 g/dL (3.5-5.0); ALBUMIN/GLOBULIN RATIO 0.6 (0.8-2.0); ALKALINE PHOSPHATASE 156 IU/L (40-150); ANION GAP 12.3 mmol/L (8-16); BLOOD UREA NITROGEN 12 mg/dL (7-26); BUN/CREATININE RATIO 16 (6-25); CARBON DIOXIDE 25 mmol/L (22-29); CHLORIDE 102 mmol/L (98-107); CREATINE KINASE 39 IU/L (30-200); CREATININE, SERUM 0.76 mg/dL (0.72-1.25); EST GLOMERULAR FILTRATION RATE > 60 ML/MIN (60-); GLUCOSE 110 mg/dL (74-118); LIPASE 15 U/L (8-78); MAGNESIUM 1.8 MG/DL (1.3-2.1); POTASSIUM 4.3 mmol/L (3.5-5.1); SODIUM 135 mmol/L (136-145)
[2019-09-24] MEDS ORDERED: MORPHINE SULFATE 2 MG/ML SYR 1ML IV PRN (15:45)
--- NOTE | 2019-09-24 16:29 | Diagnostic Imaging Report ---
EXAMINATION: ABDOMEN ACUTE SERIES W/PA CXR INDICATION: Abdominal distention COMPARISON: CT abdomen pelvis of 09/03/2019 FINDINGS: LINES/TUBES:EKG leads overlie the chest. LUNGS:The lung volumes are low. No focal consolidation or pulmonary edema. Central vascular crowding, likely related to low lung volumes. PLEURA:No pleural effusion or pneumothorax. MEDIASTINUM:The cardiomediastinal silhouette appears enlarged, however this may be exaggerated by low lung volumes. Atherosclerotic arterial calcifications. BONES/SOFT TISSUES:No acute osseous injury. ABDOMEN:Several distended loops of small bowel in the abdomen measure up to 4.5 cm with some associated air-fluid levels. No free air. Medialization of bowel loops suggestive of ascites. IMPRESSION: Low lung volumes. No focal pneumonia or pulmonary edema. Distended loops of small bowel measure up to 4.5 cm with associated air-fluid levels, concerning for possible small bowel obstruction. No free air. Ascites. Signed by: Brianne Tejeda MD on 09/24/2019 4:26 PM
[2019-09-24] MEDS: ONDANSETRON HCL INJ 2MG/ML 2ML 2 MG/ML VIAL IV PRN (18:03)
[2019-09-24] MEDS: MORPHINE SULFATE INJ 4 MG/ML INJ 1ML IV PRN (18:03)
--- NOTE | 2019-09-24 19:44 | NUR ---
UA collected at this time
--- NOTE | 2019-09-24 20:43 | Diagnostic Imaging Report ---
CT Abdomen And Pelvis with Intravenous Contrast INDICATION: Cirrhosis ^abd distension TECHNIQUE: Thin collimation axial images obtained from the diaphragm to the level of the pubic symphysis following the uneventful administration of 100 cc of low osmolar, nonionic intravenous contrast. Dose reduction techniques used: Automated exposure control, adjustment of the mAs and/or kVp according to patient size, standardized low-dose protocol, and/or iterative reconstruction technique. RADIATION DOSE: Total DLP: 667.5 mGy*cm Estimated effective dose: (DLP x 0.015 x size factor) mSv CTDIvol has been reviewed. It is below the limits set by the Radiation Protocol Committee (RPC). COMPARISON: CT abdomen/pelvis 09/03/2019. ABDOMEN FINDINGS: Lung Bases: Bibasilar atelectasis. The heart is mildly enlarged with coronary artery and aortic calcifications. There are small paraesophageal varices. Liver: Decreased attenuation with mildly lobulated contours. Low attenuating lesion in segment IVb is stable. Hepatic and portal veins are patent. There is recanalization of the paraumbilical vein. Gallbladder: Present and appears normal. No biliary ductal dilatation. Pancreas: Normal attenuation without mass or ductal dilatation. Spleen: Normal in size. No evidence of mass.. Adrenal Glands: No evidence for mass. Kidneys: Right: Normal enhancement. No soft tissue mass. No hydronephrosis. Left: Normal enhancement. No soft tissue mass. No hydronephrosis. Lymph Nodes: No lymphadenopathy. Aorta: Normal in diameter with scattered calcifications. No aneurysmal dilatation PELVIS FINDINGS: Bowel: Stomach: Normal. Small Bowel: Small periampullary duodenal diverticulum. Small bowel loops are centrally displaced and mildly distended without abnormal mural enhancement. No clear transition point. Large Bowel: No dilatation or focal mural thickening. The ascending colon is displaced medially. The descending colon is collapsed. Appendix: Not visualized. Bladder: Collapsed. Peritoneum/retroperitoneum: Large amount of abdominopelvic ascites. No loculated fluid collection or air. Bones: Mild degenerative changes of the spine. No focal osseous lesions. Soft tissues: Diffuse anasarca. There is fluid tracking into bilateral inguinal hernias. IMPRESSION: 1. Large volume abdominopelvic ascites. 2. Cirrhosis and portal hypertension. Mild steatosis. Stable low attenuating hepatic lesion. No splenomegaly. 3. No bowel obstruction. Mild small bowel ileus, likely secondary to ascites. 4. Bibasilar atelectasis. Signed by: Dr. Mati Bermudez MD on 09/24/2019 8:40 PM
--- NOTE | 2019-09-24 20:48 | NUR ---
spoke to radiology department. They stated paracentesis is to be done tomorrow morning.
[2019-09-24 21:28] LABS: CLARITY,URINE SL CLOUDY (CLEAR); COLOR,URINE YELLOW (YELLOW); KETONES,URINE NEGATIVE (NEGATIVE); LEUKOCYTE ESTERASE ,URINE TRACE (NEGATIVE); NITRITE,URINE POSITIVE (NEGATIVE); PROTEIN,URINE DIPSTICK TRACE (NEGATIVE)
[2019-09-24 21:29] LABS: BILIRUBIN,URINE MODERATE (NEGATIVE); URINE UROBILINOGEN 1 mg/dL (0.2 - 1)
--- NOTE | 2019-09-24 21:44 | NUR ---
Patient resting with no distress noted. Family at bedside.
[2019-09-24] MEDS ORDERED: SODIUM CHLORIDE 0.9% 50ML 50 ML ONE (22:30)
[2019-09-24] MEDS ORDERED: IOPAMIDOL 370 MG/ML 200 ML INFUS..BTL INJ ONE (22:30)
[2019-09-24 22:55] LABS: BACTERIA,URINE FEW /HPF; EPITHELIAL CELLS,URINE FEW /LPF; RBC,URINE 0-5 /HPF (0-5)
--- NOTE | 2019-09-25 01:58 | NUR ---
Patient placed on hospital bed at this time.
--- NOTE | 2019-09-25 03:10 | NUR ---
Unable to obtain home medications at this time.
[2019-09-25 04:37] LABS: BASOPHILS % 0.7 % (0.0-1.0); EOSINOPHILS # (AUTO) 0.1 (0.0-0.4); LYMPHOCYTES # (AUTO) 1.4 (1.0-3.2); LYMPHOCYTES % 22.6 % (18.0-39.1); MEAN CORPUSCULAR HEMOGLOBIN 34.7 pg (28-32); MEAN CORPUSCULAR HGB CONC 34.3 g/dL (31-35); MEAN CORPUSCULAR VOLUME 101.2 fL (81-99); MONOCYTES # (AUTO) 0.8 (0.2-0.8); NEUTROPHILS # (AUTO) 3.8 (2.1-6.9); NEUTROPHILS % 61.5 % (38.7-80.0); PLATELET COUNT 113 x10e3/uL (140-360); RED BLOOD COUNT 3.46 x10e6/uL (4.3-5.7); RED CELL DISTRIBUTION WIDTH 12.6 % (11.7-14.4)
[2019-09-25 04:58] LABS: ALANINE AMINOTRANSFERASE 19 IU/L (0-55); ALBUMIN 2.4 g/dL (3.5-5.0); ALBUMIN/GLOBULIN RATIO 0.6 (0.8-2.0); ALKALINE PHOSPHATASE 113 IU/L (40-150); ANION GAP 8.1 mmol/L (8-16); BLOOD UREA NITROGEN 12 mg/dL (7-26); BUN/CREATININE RATIO 17 (6-25); CALCIUM 8.1 mg/dL (8.4-10.2); CARBON DIOXIDE 27 mmol/L (22-29); CHLORIDE 102 mmol/L (98-107); CREATININE, SERUM 0.69 mg/dL (0.72-1.25); EST GLOMERULAR FILTRATION RATE > 60 ML/MIN (60-); GLUCOSE 101 mg/dL (74-118); POTASSIUM 4.1 mmol/L (3.5-5.1); SODIUM 133 mmol/L (136-145)
[2019-09-25 05:13] LABS: MAGNESIUM 1.7 MG/DL (1.3-2.1); PHOSPHORUS 3.5 MG/DL (2.3-4.7)
--- NOTE | 2019-09-25 07:13 | NUR ---
Report given to LULU Walton
--- NOTE | 2019-09-25 07:50 | Diagnostic Imaging Report ---
EXAMINATION: CHEST SINGLE (PORTABLE) INDICATION: Shortness of breath. COMPARISON: Chest radiograph 09/24/2019. FINDINGS: TUBES and LINES: None. LUNGS: Low lung volumes. Central vascular congestion. Mild patchy bibasilar opacities, likely atelectasis. Linear subsegmental atelectasis in the left midlung. No new consolidation. No evidence of pulmonary edema. PLEURA: No pleural effusion or pneumothorax. HEART AND MEDIASTINUM: The cardiomediastinal silhouette is unremarkable. There are atherosclerotic calcifications within the aorta. BONES AND SOFT TISSUES: No acute osseous lesion. Soft tissues are unremarkable. UPPER ABDOMEN: No free air under the diaphragm. IMPRESSION: Low lung volumes with patchy bibasilar opacities, likely atelectasis. Signed by: Dr. Judi Alcaraz MD on 09/25/2019 7:47 AM
[2019-09-25] MEDS: FUROSEMIDE INJ 10 MG/ML 2 ML VIAL IV SCH ×2 (07:51→21:33)
[2019-09-25] MEDS: POTASSIUM CHLORIDE 20 MEQ TAB CR PO SCH ×2 (08:39→21:33)
[2019-09-25] MEDS ORDERED: ALBUMIN 25% 12.5GM 50ML 100 ML IV ONE (09:24)
--- NOTE | 2019-09-25 09:29 | NUR ---
WENT FOR PERICENTESIS IN RADIOLOGY AND GOT 10 LITERS 200 CC TAKEN OFF. GIVEN ALBUMIN 25 GRAMS AND VSS.
--- NOTE | 2019-09-25 10:58 | Diagnostic Imaging Report ---
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 The patient's heart rate and pulse oximetry were continuously monitored by the IR nurse. Additional Medications: Lidocaine 1% for local anesthesia 25 mg of the abdomen IV Estimated blood loss: Less than 1 cc. Specimen: 10,200 cc of clear yellow fluid Implants: None TECHNIQUE/FINDINGS: Informed consent was obtained from the patient and documented in the medical record. The patient was placed in the supine position. Initial ultrasound demonstrated ascites. The right lower abdomen was prepped and draped in standard sterile fashion. 1% lidocaine was infiltrated into the skin and subcutaneous tissues for local anesthesia. Then under continuous sonographic guidance, a 5 Fr catheter was advanced into the peritoneal space. The catheter was connected to vacuum bottle with subsequent evacuation of 10,200 cc of serous fluid. The catheter was removed and sterile dressing was applied. The patient tolerated the procedure well. IMPRESSION: Successful ultrasound-guided paracentesis. Signed by: Dr. Jere Beck MD on 09/25/2019 10:55 AM
--- NOTE | 2019-09-25 15:00 | NUR ---
RECEIVED TO RM AAOX3, NO DISTRESS NOTED, UPDATED ON POC VOCIED UNDERSTANDING, DENIES PAIN AT THIS TIME, DSG TO RIGHT LOWER ABDOMEN INTACT RED DRAINAGE NOTED AND CIRCLED WILL MONITOR, +4 PITTED EDEMA TO LOWER EXTREMITIES, R WRIST 20G NO SS OF INFILTRATION NOTED, NO OTHER CO VOCIED CALL LIGHT IN REACH WILL CONTINUE TO MONITOR
[2019-09-25 15:09] VITALS: BP 104/75
[2019-09-25 15:31] VITALS: BP 104/75
[2019-09-25] MEDS ORDERED: LACTULOSE SYRUP 20 GM/30 ML UDC PO PRN (18:00)
[2019-09-25] MEDS ORDERED: MAGNESIUM SULF 1GRAM/DEXTROSE 100 ML IV ONE (18:30)
--- NOTE | 2019-09-25 19:10 | NUR ---
RECEIVED REPORT FROM PREVIOUS NURSE. CALL LIGHT WITHIN REACH. PATIENT IN BED Addendum: 09/26/19 at 0445 by Lilliana Pena RN RECEIVED BEDSIDE SHIFT REPORT
[2019-09-25 19:57] VITALS: BP 98/70
[2019-09-25 20:37] VITALS: BP 98/70
[2019-09-25] MEDS: FAMOTIDINE 20 MG/2 ML VIAL IV SCH (21:33)
[2019-09-25] MEDS ORDERED: SPIRONOLACTONE 25 MG TAB PO ONE (23:30)
[2019-09-26] VITALS (7 sets, daily range): BP systolic 91–149; BP diastolic 64–76
[2019-09-26] MEDS: FUROSEMIDE INJ 10 MG/ML 2 ML VIAL IV SCH ×2 (00:07→06:25)
[2019-09-26 06:18] LABS: BASOPHILS % 0.7 % (0.0-1.0); EOSINOPHILS # (AUTO) 0.1 (0.0-0.4); EOSINOPHILS % 1.7 % (0.0-6.0); HEMATOCRIT 36.2 % (38.2-49.6); HEMOGLOBIN 12.4 g/dL (14.0-18.0); LYMPHOCYTES # (AUTO) 1.4 (1.0-3.2); LYMPHOCYTES % 24.9 % (18.0-39.1); MEAN CORPUSCULAR HEMOGLOBIN 34.3 pg (28-32); MEAN CORPUSCULAR HGB CONC 34.3 g/dL (31-35); MONOCYTES # (AUTO) 0.8 (0.2-0.8); MONOCYTES % 13.8 % (4.4-11.3); NEUTROPHILS # (AUTO) 3.2 (2.1-6.9); NEUTROPHILS % 58.7 % (38.7-80.0); PLATELET COUNT 98 x10e3/uL (140-360); RED BLOOD COUNT 3.62 x10e6/uL (4.3-5.7); RED CELL DISTRIBUTION WIDTH 12.4 % (11.7-14.4)
[2019-09-26 06:46] LABS: ALANINE AMINOTRANSFERASE 16 IU/L (0-55); ALBUMIN 2.5 g/dL (3.5-5.0); ALBUMIN/GLOBULIN RATIO 0.7 (0.8-2.0); ALKALINE PHOSPHATASE 76 IU/L (40-150); ANION GAP 6.8 mmol/L (8-16); BLOOD UREA NITROGEN 9 mg/dL (7-26); BUN/CREATININE RATIO 13 (6-25); CALCIUM 8.3 mg/dL (8.4-10.2); CARBON DIOXIDE 32 mmol/L (22-29); CHLORIDE 99 mmol/L (98-107); CREATININE, SERUM 0.67 mg/dL (0.72-1.25); EST GLOMERULAR FILTRATION RATE > 60 ML/MIN (60-); GLUCOSE 94 mg/dL (74-118); MAGNESIUM 1.7 MG/DL (1.3-2.1); PHOSPHORUS 3.2 MG/DL (2.3-4.7); POTASSIUM 3.8 mmol/L (3.5-5.1); SODIUM 134 mmol/L (136-145)
--- NOTE | 2019-09-26 07:00 | NUR ---
bedside shift report recieved pt in stable condition, dsg to abdomen d/i, scrotal edema noted elevated with towels, right wrist 20g no ss of infiltration noted, no other co vocied call light in reach will continue to monitor
--- NOTE | 2019-09-26 07:09 | NUR ---
GAVE BEDSIDE SHIFT REPORT TO ONCOMING NURSE. CALL LIGHT WITHIN REACH. PATIENT IN BED ASLEEP.
[2019-09-26] MEDS ORDERED: ACETAMINOPHEN 325 MG TAB PO PRN (08:00)
[2019-09-26] MEDS: FAMOTIDINE 20 MG/2 ML VIAL IV SCH ×2 (08:21→20:21)
[2019-09-26] MEDS: SPIRONOLACTONE 25 MG TAB PO SCH ×2 (08:22→17:28)
[2019-09-26] MEDS: POTASSIUM CHLORIDE 20 MEQ TAB CR PO SCH ×4 (08:22→20:22)
[2019-09-26] MEDS ORDERED: MAGNESIUM SULFATE 2GM/50ML 50 ML IV ONE (09:15)
[2019-09-26] MEDS: THIAMINE HCL 100 MG TAB PO SCH (10:15)
[2019-09-26] MEDS: FOLIC ACID 1 MG TAB PO SCH (10:15)
--- NOTE | 2019-09-26 10:17 | NUR ---
Nutrition Screen Note RD Recommendation for Physician: -Continue current diet per MD. -Continue folic acid, thiamine, consider addition of M/ supplementation. Plan of Care: RD following, monitoring for tolerance and adequacy. Education provided. Nutrition reason for involvement: (MD Consult- 2 gm Na diet education) Primary Diagnose(s): alcoholic cirrhosis, ascites PMH: cirrhosis Ht: 65 in Wt: 148 lb BMI: 24.6 kg/m2 IBW:[address] Assessment: (09/25) 63 YOM admitted for cirrhosis with PMH listed above. The pt was seen getting ready to consume his breakfast. He reported his appetite was somewhat low and stated he may have had weight loss but it was not significant. Per EMR the pt was 148 lbs in Aug, suggesting no recent weight loss. Pt denied N/V, he did state he has not had a BM in 3 days, denied chewing or swallowing issues as well as any food allergies. LBM: not recorded. Pt is on lactulose. Pt was open to receiving education regarding low Na diet, provided him with low Na handout as well as cirrhosis MNT handout. Pt verbalized understanding. Chart reviewed. Labs and meds reviewed. Will continue to monitor. Current Diet: 2 gm Na Malnutrition Evaluation (09/25) The patient does not meet criteria for a specified degree of malnutrition at this time. Will re-evaluate at follow-up as appropriate. Diet Education Needs Assessment: Diet education indicated, pt accepted. Diet Adequacy: Meeting calorie needs, Meeting protein needs Learner(s): pt Barriers: none Cultural/Language Modifications: none Readiness: acceptance Method: discussion, handout Topics: Low Na and Cirrhosis MNT, food label reading tips, foods low and high in Na, not adding extra salt to foods, grocery shopping tips, meal planning Understanding/Compliance: verbalized understanding, anticipate fair compliance Nutrition Care Level: low Signed: Miriam Iniguez, RD, LD
[2019-09-26] MEDS: BUMETANIDE INJ 0.25MG/ML 4ML VIAL IV SCH ×3 (12:00→23:29)
--- NOTE | 2019-09-26 19:03 | NUR ---
RECEIVED REPORT FROM PREVIOUS NURSE. CALL LIGHT WITHIN REACH. PATIENT IN BED.
--- NOTE | 2019-09-26 20:19 | Consultation ---
DATE OF CONSULTATION: 09/26/2019 Urology Consultation REASON FOR CONSULTATION: Scrotal edema. HISTORY OF PRESENT ILLNESS: Linden Mccarthy is a 63-year-old man with no previous urological history. Denies any hematuria, dysuria, urinary tract infections, or any urolithiasis. Denies ever seeing a urologist. The patient was admitted with ascites and developed scrotal edema and urological consultation was subsequently sought. PAST MEDICAL AND SURGICAL HISTORY: 1. Alcoholic cirrhosis. 2. Ethanol abuse. 3. Hyperlipidemia. 4. Ascites requiring paracentesis. 5. Hypertension. 6. Coronary artery disease. 7. Enterocolitis. 8. Hypokalemia. 9. Hypomagnesemia. 10. Status post right inguinal hernia repair. 11. Coronary artery disease, status post stent x2. 12. History of paracentesis. FAMILY HISTORY: Noncontributory to the active urological problems. SOCIAL HISTORY: The patient smokes half a pack per day of cigarettes. 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 Denies drug use. He has a history of heavy alcohol abuse. ALLERGIES: NONE KNOWN. CURRENT MEDICATIONS: Please refer the MAR. REVIEW OF SYSTEMS: As discussed as above in the history of present illness, past medical history, otherwise negative for all systems. PHYSICAL EXAMINATION: GENERAL: A pleasant 63-year-old male, lying in bed, in no apparent distress. He is currently afebrile. VITAL SIGNS: Currently stable. ABDOMEN: Distended. It is soft. It is full of ascites fluid. There is no tenderness. GENITOURINARY: Testes descended bilaterally. Testes and epididymides bilaterally palpably normal. The patient has a normal uncircumcised male phallus. He has massive penoscrotal edema. Urethral meatus appears normal. There is no sign of infection. For the remaining physical examination systems, please refer to the admission history and physical in the chart. LABORATORY STUDIES: Urine culture is a mixture of organism consistent with "contamination." White blood cell count is 5420, hemoglobin 12.4, platelets 98,000. Sodium is low at 134. The patient's creatinine is normal at 0.67, calcium is low at 8.3. Bilirubin is elevated at 2.8. Urinalysis significant for 6-10 wbc's with nitrite positive urine. ASSESSMENT: 1. Penoscrotal edema due to ascites and cirrhosis. 2. Probable urinary tract infection. 3. Anemia. 4. Thrombocytopenia. 5. Hyponatremia. 6. Hypocalcemia. PLAN: 1. Defer the hematological and electrolyte abnormalities per the primary team. 2. Urine culture and sensitivity. 3. Scrotal elevation. 4. We will follow up with serial examinations. Thank you very much for involving us in the care of your patient. We will be happy to follow him along with you as well as an outpatient. Clinton Ram MD [place]/MODL /[id number]
[2019-09-27] VITALS (9 sets, daily range): BP systolic 97–142; BP diastolic 62–83
[2019-09-27] MEDS: MORPHINE SULFATE INJ 4 MG/ML INJ 1ML IV PRN ×2 (01:33→18:15)
[2019-09-27] MEDS: ONDANSETRON HCL INJ 2MG/ML 2ML 2 MG/ML VIAL IV PRN ×2 (01:33→18:15)
--- NOTE | 2019-09-27 01:55 | NUR ---
CALLED DR. RHODES OFFICE AND TALKED TO SANDY BELL ABOUT PATIENT SITTING AT THE EDGE OF THE BED COMPLAINING OF SHORTNESS OF BREATH AND PAIN IN LOWER ABDOMEN AND BACK. ARABELLA ORDERED A STAT ABG AND CHEST X-RAY. ARABELLA ALSO SAID TO CONSULT DR. Brenda VU ABOUT SHORTNESS OF BREATH AND GIVE DR. Brenda VU THE RESULTS OF THE ABG AND CHEST X-RAY.
--- NOTE | 2019-09-27 01:57 | NUR ---
CALLED AND TALKED TO DR. Brenda VU ABOUT THE CONSULTATION OF THE PATIENT AND WHAT WAS GOING ON WITH THE PATIENT. DR. Brenda VU SAID TO CALL BACK WHEN THE RESULTS OF THE ABG AND CHEST X-RAY COME IN
--- NOTE | 2019-09-27 02:36 | NUR ---
RT STUCK THE PATIENT TO GET THE ABG AND COULD NOT GET ANY BLOOD. DR. Brenda VU SAID TO PLACE THE PATIENT ON 3 L NASAL CANNULA AND TRANSFER HIM TO [facility]
--- NOTE | 2019-09-27 02:51 | Diagnostic Imaging Report ---
EXAMINATION: CHEST 2 VIEWS INDICATION: Shortness of breath. COMPARISON: Chest radiograph 09/25/2019. FINDINGS: TUBES and LINES: None. LUNGS: Low lung volumes. Central vascular congestion with mild interstitial opacities. Mild patchy bibasilar opacities, likely atelectasis. Linear subsegmental atelectasis in the left midlung. No new consolidation. No evidence of pulmonary edema. PLEURA: No pleural effusion or pneumothorax. HEART AND MEDIASTINUM: The cardiomediastinal silhouette is unremarkable. There are atherosclerotic calcifications within the aorta. BONES AND SOFT TISSUES: No acute osseous lesion. Soft tissues are unremarkable. UPPER ABDOMEN: No free air under the diaphragm. IMPRESSION: Low lung volumes with patchy bibasilar opacities, likely atelectasis. Possible mild pulmonary interstitial edema. Signed by: Dr. Judi Alcaraz MD on 09/27/2019 2:48 AM
[2019-09-27 05:17] LABS: ABG PCO2 46 mmHg (41-51); ABG PH 7.43 (7.31-7.41); ABG PO2 95 mmHg (80-105)
[2019-09-27 05:18] LABS: ABG HCO3 30 mmol/L (23-28)
--- NOTE | 2019-09-27 05:32 | NUR ---
NU, ICU CHARGE NURSE CALLED AND TALKED TO DR. Brenda VU ABOUT THE RESULTS FOR THE ABG AND STAT CHEST X-RAY. DR. Brenda VU SAID TO CANCEL THE ORDER TO TRANSFER THE PATIENT TO [facility]
[2019-09-27] MEDS: BUMETANIDE INJ 0.25MG/ML 4ML VIAL IV SCH ×4 (05:38→23:43)
[2019-09-27 06:32] LABS: BASOPHILS % 0.6 % (0.0-1.0); EOSINOPHILS # (AUTO) 0.1 (0.0-0.4); HEMOGLOBIN 13.6 g/dL (14.0-18.0); LYMPHOCYTES # (AUTO) 1.6 (1.0-3.2); LYMPHOCYTES % 23.5 % (18.0-39.1); MEAN CORPUSCULAR HEMOGLOBIN 34.1 pg (28-32); MEAN CORPUSCULAR VOLUME 100.3 fL (81-99); MONOCYTES # (AUTO) 0.8 (0.2-0.8); MONOCYTES % 11.2 % (4.4-11.3); NEUTROPHILS # (AUTO) 4.3 (2.1-6.9); NEUTROPHILS % 63.4 % (38.7-80.0); PLATELET COUNT 105 x10e3/uL (140-360); RED BLOOD COUNT 3.99 x10e6/uL (4.3-5.7); RED CELL DISTRIBUTION WIDTH 12.4 % (11.7-14.4)
[2019-09-27 06:53] LABS: ALANINE AMINOTRANSFERASE 19 IU/L (0-55); ALBUMIN 2.7 g/dL (3.5-5.0); ALBUMIN/GLOBULIN RATIO 0.7 (0.8-2.0); ALKALINE PHOSPHATASE 143 IU/L (40-150); ANION GAP 9.2 mmol/L (8-16); BLOOD UREA NITROGEN 10 mg/dL (7-26); BUN/CREATININE RATIO 13 (6-25); CALCIUM 8.6 mg/dL (8.4-10.2); CARBON DIOXIDE 31 mmol/L (22-29); CHLORIDE 97 mmol/L (98-107); CREATININE, SERUM 0.75 mg/dL (0.72-1.25); EST GLOMERULAR FILTRATION RATE > 60 ML/MIN (60-); GLUCOSE 111 mg/dL (74-118); MAGNESIUM 1.7 MG/DL (1.3-2.1); POTASSIUM 4.2 mmol/L (3.5-5.1); SODIUM 133 mmol/L (136-145)
--- NOTE | 2019-09-27 07:15 | NUR ---
Received change of shift report from PM nurse. Walking rounds completed.
--- NOTE | 2019-09-27 07:20 | NUR ---
GAVE REPORT TO ONCOMING NURSE. CALL LIGHT WITHIN REACH. PATIENT IN BED.
[2019-09-27] MEDS: SPIRONOLACTONE 25 MG TAB PO SCH ×2 (09:00→17:00)
[2019-09-27] MEDS: FAMOTIDINE 20 MG/2 ML VIAL IV SCH ×2 (09:00→21:51)
[2019-09-27] MEDS: FOLIC ACID 1 MG TAB PO SCH (09:00)
[2019-09-27] MEDS: PIPERACILLIN/TAZO 2.25 GM 50 ML IV SCH ×3 (10:00→21:51)
[2019-09-27] MEDS: POTASSIUM CHLORIDE 20 MEQ TAB CR PO SCH ×4 (10:26→21:51)
[2019-09-27] MEDS: THIAMINE HCL 100 MG TAB PO SCH (10:26)
--- NOTE | 2019-09-27 11:45 | NUR ---
pt refusing 2x to get oob... Addendum: 09/27/19 at 1145 by Enoc Dillon PTA Amended: Links added.
[2019-09-27] MEDS ORDERED: ALBUMIN 25% 25GM 100ML 0.25 GM/ML BTL IV ONE (16:45)
[2019-09-27] MEDS ORDERED: ALBUMIN 25% 25GM 100ML 100 ML IV ONE (17:00)
[2019-09-27] MEDS ORDERED: ALBUMIN 25% 25GM 100ML 200 ML IV ONE (17:00)
--- NOTE | 2019-09-27 19:15 | NUR ---
RECEIVED REPORT FROM PREVIOUS NURSE. CALL LIGHT WITHIN REACH. PATIENT IN BED ASLEEP
--- NOTE | 2019-09-27 20:23 | NUR ---
REPORT GIVEN TO ONCOMING NURSE, WALKING ROUNDS COMPLETE.
[2019-09-27] MEDS ORDERED: MAGNESIUM SULF 1GRAM/DEXTROSE 100 ML IV ONE (23:15)
[2019-09-28] VITALS (8 sets, daily range): BP systolic 104–142; BP diastolic 74–89
--- NOTE | 2019-09-28 00:10 | Consultation ---
DATE OF CONSULTATION: Pulmonary Critical Care Consultation CHIEF COMPLAINT: Abdominal pain and dyspnea. HISTORY OF PRESENT ILLNESS: The patient is a 63-year-old man. He was diagnosed with cirrhosis 3 or 4 years ago. He has recurrent ascites and has required recurrent paracenteses. He. He came into the hospital complaining of abdominal pain and cramping. He was found to have ascites and underwent an ultrasound-guided paracentesis. Yesterday night, he had more difficulty breathing. He says this has improved, but still complains of abdominal pain. He denies any fever. He denies cough. PAST SURGICAL HISTORY: Status post coronary artery stent. PAST MEDICAL HISTORY: 1. Cirrhosis. 2. Hypertension. 3. Coronary artery disease. FAMILY HISTORY: Remarkable for hypertension. ALLERGIES: NO KNOWN DRUG ALLERGIES. REVIEW OF SYSTEMS: The patient is afebrile. The patient does not complain of headache or neck pain. He is not having any chest pain. He does have some shortness of breath. He has some abdominal distention and pain. He has no nausea or vomiting. He does have some leg edema. PHYSICAL EXAMINATION: VITAL SIGNS: The patient is afebrile. The blood pressure is 99/60 and saturation is 99%. HEENT: No facial swelling or erythema. CARDIAC: Reveals regular rate and rhythm with normal S1, S2. LUNGS: Auscultation of lungs is clear breath sounds bilaterally. There is no wheezing. ABDOMEN: Distended. There is ascites. There is some mild epigastric tenderness. There is no rebound. EXTREMITIES: 1 to 2+ leg edema. NEUROLOGICAL: No focal abnormalities. LABORATORY DATA: White blood cell count is 6.8 and hemoglobin is 13.6. The platelet count is 105, BUN to creatinine ratio is normal. The other electrolytes within normal limits. RADIOGRAPHIC DATA: Chest x-ray shows low lung volumes with patchy bibasilar atelectasis. CT scan of the abdomen and pelvis shows large volume of abdominopelvic ascites. There is cirrhosis and portal hypertension. IMPRESSION: 1. Cirrhosis with worsening ascites. 2. Coagulopathy secondary to ascites. 3. Hyponatremia. 4. Hypertension. 5. Scrotal edema secondary to ascites. 6. Thrombocytopenia. PLAN: 1. Albumin now for blood pressure. 2. The patient may require additional fluid removed from the abdomen. 3. Continue Bumex along with aldactone. 4. Continue lactulose. 5. Monitor creatinine, electrolytes, and blood counts. MD DIDI Maloney/KENA /[id number]
[2019-09-28] MEDS ORDERED: BISACODYL 5 MG TAB EC PO ONE ×2 (00:15→09:00)
[2019-09-28] MEDS: PIPERACILLIN/TAZO 2.25 GM 50 ML IV SCH ×4 (03:30→22:00)
--- NOTE | 2019-09-28 03:40 | NUR ---
HOURLY ROUNDING PERFORMED. CALL LIGHT WITHIN REACH. PATIENT ASLEEP IN BED.
[2019-09-28 05:28] LABS: BASOPHILS % 0.5 % (0.0-1.0); EOSINOPHILS # (AUTO) 0.1 (0.0-0.4); EOSINOPHILS % 2.1 % (0.0-6.0); HEMATOCRIT 34.5 % (38.2-49.6); HEMOGLOBIN 11.7 g/dL (14.0-18.0); LYMPHOCYTES # (AUTO) 1.1 (1.0-3.2); LYMPHOCYTES % 18.5 % (18.0-39.1); MEAN CORPUSCULAR HEMOGLOBIN 34.3 pg (28-32); MEAN CORPUSCULAR HGB CONC 33.9 g/dL (31-35); MEAN CORPUSCULAR VOLUME 101.2 fL (81-99); MONOCYTES # (AUTO) 0.7 (0.2-0.8); MONOCYTES % 10.7 % (4.4-11.3); NEUTROPHILS # (AUTO) 4.2 (2.1-6.9); NEUTROPHILS % 67.9 % (38.7-80.0); PLATELET COUNT 94 x10e3/uL (140-360); RED BLOOD COUNT 3.41 x10e6/uL (4.3-5.7); RED CELL DISTRIBUTION WIDTH 12.4 % (11.7-14.4)
[2019-09-28] MEDS: BUMETANIDE INJ 0.25MG/ML 4ML VIAL IV SCH ×4 (05:40→23:56)
[2019-09-28 05:55] LABS: ALANINE AMINOTRANSFERASE 17 IU/L (0-55); ALBUMIN 3.2 g/dL (3.5-5.0); ALKALINE PHOSPHATASE 97 IU/L (40-150); ANION GAP 11.8 mmol/L (8-16); BLOOD UREA NITROGEN 10 mg/dL (7-26); BUN/CREATININE RATIO 13 (6-25); CALCIUM 8.5 mg/dL (8.4-10.2); CARBON DIOXIDE 30 mmol/L (22-29); CHLORIDE 98 mmol/L (98-107); CREATININE, SERUM 0.78 mg/dL (0.72-1.25); EST GLOMERULAR FILTRATION RATE > 60 ML/MIN (60-); GLUCOSE 105 mg/dL (74-118); POTASSIUM 3.8 mmol/L (3.5-5.1); SODIUM 136 mmol/L (136-145)
--- NOTE | 2019-09-28 06:52 | Diagnostic Imaging Report ---
Exam: KUB - 2 views Clinical History: Ascites and cirrhosis. Comparison: CT abdomen/pelvis 09/24/2019. Findings/Impression: Air-filled small and large bowel loops compatible with ileus without specific findings of bowel obstruction. There is centralization of bowel loops with bulging of the flanks, suggestive of ascites. Moderate amount of stool in the colon and rectum. No evidence of free intraperitoneal air. No acute bony abnormality. Signed by: Dr. Judi Alcaraz MD on 09/28/2019 6:49 AM
--- NOTE | 2019-09-28 07:02 | NUR ---
GAVE BEDSIDE SHIFT REPORT TO ONCOMING NURSE. CALL LIGHT WITHIN REACH. PATIENT ASLEEP IN BED.
--- NOTE | 2019-09-28 07:30 | NUR ---
Received patient , alert and responsive, no distress, rounds completed, call light within reach and safety maintained.
[2019-09-28] MEDS: FOLIC ACID 1 MG TAB PO SCH (09:33)
[2019-09-28] MEDS: POTASSIUM CHLORIDE 20 MEQ TAB CR PO SCH ×4 (09:33→22:00)
[2019-09-28] MEDS: SPIRONOLACTONE 25 MG TAB PO SCH ×2 (09:33→16:40)
[2019-09-28] MEDS: FAMOTIDINE 20 MG/2 ML VIAL IV SCH ×2 (09:33→22:00)
[2019-09-28] MEDS: THIAMINE HCL 100 MG TAB PO SCH (09:33)
[2019-09-28] MEDS ORDERED: BISACODYL 10 MG SUPP PR ONE (10:45)
[2019-09-28] MEDS ORDERED: ONDANSETRON HCL 4 MG ORAL DISINTEGRATING TAB PO PRN (13:30)
[2019-09-28] MEDS: MORPHINE SULFATE INJ 4 MG/ML INJ 1ML IV PRN (16:41)
--- NOTE | 2019-09-28 16:41 | NUR ---
Patient had a large BM and incontinence care provided. Medicated for pain
[2019-09-29] VITALS (8 sets, daily range): BP systolic 98–135; BP diastolic 69–88
--- NOTE | 2019-09-29 01:02 | NUR ---
DR. Alice GARCIA DOING ROUNDS. NEW ORDERS RECEIVED. SEE EMR FOR LIST OF ORDERS.
[2019-09-29] MEDS ORDERED: BISACODYL 10 MG SUPP PR ONE ×3 (01:15→07:00)
--- NOTE | 2019-09-29 02:55 | NUR ---
PATIENT HAD A MODERATE LOOSE BM AT THIS TIME. Addendum: 09/29/19 at 0346 by Pako Byrne RN PATIENT ALSO PASSED GAS
--- NOTE | 2019-09-29 03:44 | NUR ---
NOTIFIED DR. Alice GARCIA THAT PATIENT PASSED GAS AND HAD A MODERATED BM. ORDERED DULCOLAX 20MG SUPP AT 0700
[2019-09-29] MEDS: PIPERACILLIN/TAZO 2.25 GM 50 ML IV SCH ×4 (04:01→22:00)
[2019-09-29 05:38] LABS: BASOPHILS # (AUTO) 0.1 (0.0-0.1); BASOPHILS % 0.6 % (0.0-1.0); EOSINOPHILS # (AUTO) 0.1 (0.0-0.4); EOSINOPHILS % 0.8 % (0.0-6.0); HEMATOCRIT 35.4 % (38.2-49.6); HEMOGLOBIN 12.2 g/dL (14.0-18.0); LYMPHOCYTES # (AUTO) 1.1 (1.0-3.2); LYMPHOCYTES % 13.6 % (18.0-39.1); MEAN CORPUSCULAR HEMOGLOBIN 34.7 pg (28-32); MEAN CORPUSCULAR HGB CONC 34.5 g/dL (31-35); MEAN CORPUSCULAR VOLUME 100.6 fL (81-99); MONOCYTES # (AUTO) 0.9 (0.2-0.8); MONOCYTES % 11.2 % (4.4-11.3); NEUTROPHILS # (AUTO) 6.1 (2.1-6.9); NEUTROPHILS % 73.6 % (38.7-80.0); PLATELET COUNT 102 x10e3/uL (140-360); RED BLOOD COUNT 3.52 x10e6/uL (4.3-5.7); RED CELL DISTRIBUTION WIDTH 12.7 % (11.7-14.4)
[2019-09-29 05:53] LABS: ANION GAP 6.4 mmol/L (8-16); BLOOD UREA NITROGEN 9 mg/dL (7-26); BUN/CREATININE RATIO 13 (6-25); CALCIUM 8.6 mg/dL (8.4-10.2); CARBON DIOXIDE 31 mmol/L (22-29); CHLORIDE 100 mmol/L (98-107); CREATININE, SERUM 0.71 mg/dL (0.72-1.25); EST GLOMERULAR FILTRATION RATE > 60 ML/MIN (60-); GLUCOSE 104 mg/dL (74-118); MAGNESIUM 1.7 MG/DL (1.3-2.1); POTASSIUM 4.4 mmol/L (3.5-5.1); SODIUM 133 mmol/L (136-145)
[2019-09-29] MEDS: BUMETANIDE INJ 0.25MG/ML 4ML VIAL IV SCH ×4 (06:28→23:41)
--- NOTE | 2019-09-29 07:00 | NUR ---
bedside shift report received pt in stable condition, no ss of distress noted, updated on poc vocied understanding, denies pain at this time, abdomen large round distended, nontender, md aware, r fa 20g no ss of infiltration noted, no other co vocied call light in reach will continue to monitor
[2019-09-29 07:49] LABS: AMYLASE 49 U/L (25-125); LIPASE 5 U/L (8-78)
[2019-09-29] MEDS: FOLIC ACID 1 MG TAB PO SCH (08:45)
[2019-09-29] MEDS: SPIRONOLACTONE 25 MG TAB PO SCH ×2 (08:45→16:40)
[2019-09-29] MEDS: FAMOTIDINE 20 MG/2 ML VIAL IV SCH ×2 (08:45→20:58)
[2019-09-29] MEDS: POTASSIUM CHLORIDE 20 MEQ TAB CR PO SCH ×4 (08:45→20:58)
[2019-09-29] MEDS: THIAMINE HCL 100 MG TAB PO SCH (08:46)
--- NOTE | 2019-09-29 09:56 | Diagnostic Imaging Report ---
Exam: Abdominal film Clinical History: Ascites, abdominal distention Comparison: KUB 09/28/2019 DISCUSSION: Frontal view of the abdomen shows predominantly left, centrally located borderline to mildly dilated loops of small bowel with maximal measurement of 3.1 cm. Large bowel is normal in caliber. There are no abnormal calcifications.No acute bone abnormality. IMPRESSION: 1. Findings likely represent mild ileus. 2. Ascites. The staff physician below has personally reviewed this exam on the date of dictation. Signed by: Dr. Joni Anguiano M.D. on 09/29/2019 9:52 AM
--- NOTE | 2019-09-29 10:40 | NUR ---
chicho results given to Dr. Savage Allan new orders given, states he will see pt later
[2019-09-29] MEDS ORDERED: LACTULOSE SYRUP 20 GM/30 ML UDC PO ONE (11:00)
--- NOTE | 2019-09-29 12:21 | Progress Note ---
DATE: SUBJECTIVE: The patient has worsening ascites and some abdominal discomfort. His blood pressure is improved, but he still has some mild tachycardia. PHYSICAL EXAMINATION: VITAL SIGNS: The patient is afebrile. The blood pressure is 135/70 and the saturation is 97%. The pulse is 98. HEENT: Shows no facial swelling or erythema. CARDIAC: Reveals tachycardia with a normal S1, S2. LUNGS: Auscultation of lungs shows decreased breath sounds at the bases. There is no wheezing. ABDOMEN: Distended. There is some ascites. There is no leg edema. LABORATORY DATA: Platelet count is 102. The other blood counts within normal limits. BUN to creatinine ratio is normal. IMPRESSION: 1. Cirrhosis with recurrent ascites. 2. Coagulopathy related to liver disease. 3. Thrombocytopenia. PLAN: 1. Continue spironolactone and Bumex. 2. Consider recurrent paracentesis versus TIPS. 3. Discuss case with hepatology and Dr. Borges. MD DIDI Maloney/KENA /[id number]
--- NOTE | 2019-09-29 18:59 | NUR ---
Patient will benefit from a RW for home use upon D/C for gait safety. Addendum: 09/29/19 at 1900 by Bubba Stern PT Amended: Links added.
[2019-09-29 19:32] LABS: BILIRUBIN,URINE NEGATIVE (NEGATIVE); CLARITY,URINE HAZY (CLEAR); COLOR,URINE YELLOW (YELLOW); KETONES,URINE NEGATIVE (NEGATIVE); LEUKOCYTE ESTERASE ,URINE NEGATIVE (NEGATIVE); NITRITE,URINE NEGATIVE (NEGATIVE); PROTEIN,URINE DIPSTICK NEGATIVE (NEGATIVE); URINE UROBILINOGEN 1 mg/dL (0.2 - 1)
[2019-09-29 19:34] LABS: BACTERIA,URINE FEW /HPF; EPITHELIAL CELLS,URINE FEW /LPF; RBC,URINE 0-5 /HPF (0-5); WBC,URINE (MAN) 0-5 /HPF (0-5)
--- NOTE | 2019-09-29 23:05 | NUR ---
DR. Alice GARCIA DOING ROUNDS, NEW ORDER RECEIVED FOR MILK OF MAG 45ML ONCE
[2019-09-29] MEDS ORDERED: MAGNESIUM HYDROXIDE 30 ML UDC PO ONE (23:15)
[2019-09-30] VITALS (9 sets, daily range): BP systolic 115–142; BP diastolic 63–98
[2019-09-30] MEDS ORDERED: SOD PHOSPHATE/SOD BIPHOSPHATE ENEMA 132 ML BTL PR ONE (02:00)
[2019-09-30] MEDS: PIPERACILLIN/TAZO 2.25 GM 50 ML IV SCH ×2 (04:10→09:40)
[2019-09-30 05:20] LABS: ANION GAP 11.1 mmol/L (8-16); BLOOD UREA NITROGEN 10 mg/dL (7-26); BUN/CREATININE RATIO 12 (6-25); CALCIUM 9.1 mg/dL (8.4-10.2); CARBON DIOXIDE 31 mmol/L (22-29); CHLORIDE 97 mmol/L (98-107); CREATININE, SERUM 0.81 mg/dL (0.72-1.25); EST GLOMERULAR FILTRATION RATE > 60 ML/MIN (60-); GLUCOSE 99 mg/dL (74-118); MAGNESIUM 1.7 MG/DL (1.3-2.1); POTASSIUM 4.1 mmol/L (3.5-5.1); SODIUM 135 mmol/L (136-145)
[2019-09-30] MEDS: BUMETANIDE INJ 0.25MG/ML 4ML VIAL IV SCH ×3 (06:28→17:17)
--- NOTE | 2019-09-30 06:47 | Diagnostic Imaging Report ---
Exam: KUB - 2 views Clinical History: Abdominal distention. Comparison: CT abdomen/pelvis 09/24/2019, KUB 09/29/2019. Findings/Impression: Air-filled small and large bowel loops compatible with ileus without specific findings of bowel obstruction. There is centralization of bowel loops with bulging of the flanks, suggestive of ascites. No evidence of free intraperitoneal air. No acute bony abnormality. Signed by: Dr. uJdi Alcaraz MD on 09/30/2019 6:44 AM
--- NOTE | 2019-09-30 07:00 | NUR ---
BEDSIDE SHIFT REPORT RECEIVED PT IN STABLE CONDITION, DENIES PAIN AT THIS TIME, UPDATED ON POC VOICED UNDERSTANDING, CALL LIGHT IN REACH WILL CONTINUE TO MONITOR
[2019-09-30] MEDS: FAMOTIDINE 20 MG/2 ML VIAL IV SCH ×2 (08:55→21:46)
[2019-09-30] MEDS: SPIRONOLACTONE 25 MG TAB PO SCH ×2 (08:55→17:17)
[2019-09-30] MEDS: FOLIC ACID 1 MG TAB PO SCH (08:56)
[2019-09-30] MEDS: POTASSIUM CHLORIDE 20 MEQ TAB CR PO SCH ×4 (08:56→21:46)
[2019-09-30] MEDS: THIAMINE HCL 100 MG TAB PO SCH (08:56)
--- NOTE | 2019-09-30 15:31 | Progress Note ---
DATE: SUBJECTIVE: The patient has recurrent ascites. He is noticing some abdominal discomfort. He does not have any fevers. PHYSICAL EXAMINATION: VITAL SIGNS: The patient is afebrile. The vital signs are stable. HEENT: Shows no facial swelling or erythema. CARDIAC: Reveals regular rate and rhythm with normal S1 and S2. There are no murmurs or rubs. LUNGS: Auscultation lungs reveals decreased breath sounds at the bases. ABDOMEN: There is ascites present and mild abdominal tenderness. EXTREMITIES: There is no leg edema. IMPRESSION: 1. Cirrhosis with recurrent ascites. 2. Coagulopathy. 3. Thrombocytopenia. PLAN: 1. Ultrasound-guided paracentesis tomorrow. 2. Continue spironolactone and Bumex. 3. Monitor renal function and electrolytes. Edmar Bowman MD [facility]/MODL /[id number]
[2019-09-30] MEDS ORDERED: HYDROCODONE/APAP 5MG-325MG TAB PO PRN (17:45)
[2019-09-30] MEDS ORDERED: MORPHINE SULFATE INJ 4 MG/ML INJ 1ML IV PRN (17:45)
[2019-09-30] MEDS: AMPICILLIN SOD 1 GM/NS 50ML 1 G in AMPICILLIN SOD 1 GM/NS 50ML 50 ML IV SCH (21:46)
[2019-09-30] MEDS ORDERED: MAGNESIUM SULF 1GRAM/DEXTROSE 100 ML IV ONE (22:15)
[2019-10-01] VITALS (8 sets, daily range): BP systolic 94–126; BP diastolic 59–74
--- NOTE | 2019-10-01 01:24 | NUR ---
NEW ORDER RECEIVED FROM DR. Savage GARCIA TO CHANGE FREQUENCY OF ALDACTONE FROM BID TO TID.
--- NOTE | 2019-10-01 01:38 | NUR ---
LAB ORDERS RECEIVED FROM DR. Savage GARCIA FOR THE ASCITIC FLUID.
--- NOTE | 2019-10-01 01:45 | NUR ---
NOTIFIED DR. Savage GARCIA OF PATIENT C/O "MY STOMACH FEELS LIKE IT'S BURNING". NEW ORDERS RECEIVED TO DC FAMOTIDINE, GIVE IV PROTONIX 40MG NOW AND THEN BID.
[2019-10-01] MEDS ORDERED: PANTOPRAZOLE 40 MG 10ML VIAL IV STA (01:46)
[2019-10-01 03:57] LABS: BASOPHILS % 0.6 % (0.0-1.0); EOSINOPHILS # (AUTO) 0.1 (0.0-0.4); EOSINOPHILS % 2.3 % (0.0-6.0); HEMATOCRIT 37.5 % (38.2-49.6); HEMOGLOBIN 13.2 g/dL (14.0-18.0); LYMPHOCYTES # (AUTO) 1.5 (1.0-3.2); MEAN CORPUSCULAR HEMOGLOBIN 34.6 pg (28-32); MEAN CORPUSCULAR HGB CONC 35.2 g/dL (31-35); MEAN CORPUSCULAR VOLUME 98.4 fL (81-99); MONOCYTES # (AUTO) 0.9 (0.2-0.8); NEUTROPHILS # (AUTO) 3.7 (2.1-6.9); NEUTROPHILS % 58.9 % (38.7-80.0); PLATELET COUNT 113 x10e3/uL (140-360); RED BLOOD COUNT 3.81 x10e6/uL (4.3-5.7); RED CELL DISTRIBUTION WIDTH 12.9 % (11.7-14.4)
[2019-10-01 04:28] LABS: ALANINE AMINOTRANSFERASE 17 IU/L (0-55); ALBUMIN 2.9 g/dL (3.5-5.0); ALBUMIN/GLOBULIN RATIO 0.8 (0.8-2.0); ALKALINE PHOSPHATASE 70 IU/L (40-150); ANION GAP 9.3 mmol/L (8-16); BLOOD UREA NITROGEN 10 mg/dL (7-26); BUN/CREATININE RATIO 12 (6-25); CALCIUM 9.3 mg/dL (8.4-10.2); CARBON DIOXIDE 30 mmol/L (22-29); CHLORIDE 96 mmol/L (98-107); CREATININE, SERUM 0.82 mg/dL (0.72-1.25); EST GLOMERULAR FILTRATION RATE > 60 ML/MIN (60-); GLUCOSE 106 mg/dL (74-118); POTASSIUM 4.3 mmol/L (3.5-5.1); SODIUM 131 mmol/L (136-145)
[2019-10-01] MEDS: BUMETANIDE INJ 0.25MG/ML 4ML VIAL IV SCH ×4 (06:00→17:00)
[2019-10-01] MEDS: AMPICILLIN SOD 1 GM/NS 50ML 1 G in AMPICILLIN SOD 1 GM/NS 50ML 50 ML IV SCH ×3 (06:03→20:53)
--- NOTE | 2019-10-01 07:00 | NUR ---
RECEIVED PATIENT AWAKE RESTING IN BED NO S/S OF DISTRESS. BED LOW, WHEELS LOCKED, SIDE RAILS X2, CALL LIGHT IN REACH WILL CONTINUE TO MONITOR PATIENT.
[2019-10-01] MEDS: POTASSIUM CHLORIDE 20 MEQ TAB CR PO SCH ×4 (07:37→20:53)
[2019-10-01] MEDS: SPIRONOLACTONE 25 MG TAB PO SCH ×3 (07:37→20:52)
[2019-10-01] MEDS ORDERED: PANTOPRAZOLE 40 MG 10ML VIAL IV SCH (09:00)
[2019-10-01] MEDS ORDERED: ALBUMIN 25% 12.5GM 50ML 200 ML IV ONE (11:05)
--- NOTE | 2019-10-01 11:19 | NUR ---
PATIENT LEFT FOR PARACENTESIS VIA BED. NO S/S OF DISTRESS.
--- NOTE | 2019-10-01 12:24 | Diagnostic Imaging Report ---
PROCEDURE: Ultrasound-guided paracentesis Procedural Personnel Attending physician(s): Brianne Tejeda MD Pre-procedure diagnosis: Ascites Post-procedure diagnosis: Unchanged Indication: Cirrhosis, ascites Additional clinical history: None Complications: No immediate complications. IMPRESSION: Ultrasound-guided paracentesis with drainage of 5500 mL of serous fluid. Plan: Resume care by clinical team. PROCEDURE SUMMARY: - Limited abdominal ultrasound - Ultrasound-guided paracentesis - Additional procedure(s): None PROCEDURE DETAILS: Pre-procedure Consent: Informed consent for the procedure including risks, benefits and alternatives was obtained and time-out was performed prior to the procedure. Preparation: The site was prepared and draped using maximal sterile barrier technique including cutaneous antisepsis. Anesthesia/sedation Level of anesthesia/sedation: None Initial abdominal ultrasound Initial abdominal ultrasound was performed. Findings: Large ascites. A safe window for paracentesis was identified. Paracentesis Local anesthesia was administered. The peritoneal cavity was accessed and fluid return confirmed position. Ascites was drained. The catheter was then removed, and a sterile bandage was applied. Paracentesis access technique: Real-time ultrasound guidance. Catheter placed: 5Fr Yueh Post-drainage ultrasound: Not performed Additional Details Additional description of procedure: None Equipment details: None Specimens removed: Abdominal fluid Estimated blood loss (mL): Minimal (<10cc) Standardized report: [email or web address] Attestation Signer name: Brianne Tejeda MD I attest that I was present for the entire procedure. I reviewed the stored images and agree with the report as written. Signed by: Brianne Tejeda MD on 10/01/2019 12:22 PM
--- NOTE | 2019-10-01 12:35 | NUR ---
PATIENT BACK FROM PARACENTESIS. NO S/S OF DISTRESS. CALL LIGHT IN REACH WILL CONTINUE TO MONITOR PATIENT.
--- NOTE | 2019-10-01 12:43 | Diagnostic Imaging Report ---
Exam: KUB -one view Indication: Ileus Comparison: KUB of 09/30/2019 Findings: Again seen are multiple loops of gas distended small bowel which measure up to 3.7 cm in the left upper quadrant. No free air. No acute osseous injury. Atherosclerotic arterial calcifications. Impression: Unchanged gaseous distention of small bowel loops measuring up to 3.7 cm. Signed by: Brianne Tejeda MD on 10/01/2019 12:40 PM
[2019-10-01] MEDS: THIAMINE HCL 100 MG TAB PO SCH (13:07)
[2019-10-01] MEDS: FOLIC ACID 1 MG TAB PO SCH (13:07)
[2019-10-01 13:30] LABS: BODY FLUID TYPE ASCITIC
[2019-10-01 13:31] LABS: BODY FLUID APPEARANCE SL.CLOUDY; BODY FLUID COLOR YELLOW
[2019-10-01 13:32] LABS: RBC,BODY FLUID 85 cells/uL; WBC,BODY FLUID 96 cells/uL
[2019-10-01 13:40] LABS: LYMPHOCYTES,BODY FLUID 60 %; MONO/MACROPHG,BODY FLUID 7 %; NEUTROPHILS,BODY FLUID 11 %
[2019-10-01 13:41] LABS: OTHER CELLS,BODY FLUID 28 %
[2019-10-01] MEDS: PANTOPRAZOLE SOD 40 MG TABEC PO SCH (16:56)
--- NOTE | 2019-10-01 19:10 | NUR ---
Received patient awake, not in distress, repositioned patient comfortably in bed, call light within easy reach, advised to call for assistance anytime when needed, will continue to monitor accordingly
[2019-10-02] VITALS: BP 115/59
[2019-10-02] MEDS: BUMETANIDE INJ 0.25MG/ML 4ML VIAL IV SCH ×2 (00:01→05:27)
[2019-10-02 04:00] VITALS: BP 121/74
[2019-10-02] MEDS: AMPICILLIN SOD 1 GM/NS 50ML 1 G in AMPICILLIN SOD 1 GM/NS 50ML 50 ML IV SCH (05:27)
[2019-10-02 05:56] LABS: BASOPHILS # (AUTO) 0.1 (0.0-0.1); BASOPHILS % 1.2 % (0.0-1.0); EOSINOPHILS # (AUTO) 0.1 (0.0-0.4); EOSINOPHILS % 2.3 % (0.0-6.0); HEMATOCRIT 35.4 % (38.2-49.6); HEMOGLOBIN 12.2 g/dL (14.0-18.0); LYMPHOCYTES # (AUTO) 1.4 (1.0-3.2); LYMPHOCYTES % 27.4 % (18.0-39.1); MEAN CORPUSCULAR HEMOGLOBIN 34.3 pg (28-32); MEAN CORPUSCULAR HGB CONC 34.5 g/dL (31-35); MEAN CORPUSCULAR VOLUME 99.4 fL (81-99); MONOCYTES # (AUTO) 0.7 (0.2-0.8); MONOCYTES % 13.9 % (4.4-11.3); NEUTROPHILS # (AUTO) 2.9 (2.1-6.9); PLATELET COUNT 104 x10e3/uL (140-360); RED BLOOD COUNT 3.56 x10e6/uL (4.3-5.7); RED CELL DISTRIBUTION WIDTH 12.5 % (11.7-14.4)
[2019-10-02 06:19] LABS: ALANINE AMINOTRANSFERASE 14 IU/L (0-55); ALBUMIN 3.3 g/dL (3.5-5.0); ALBUMIN/GLOBULIN RATIO 1.1 (0.8-2.0); ALKALINE PHOSPHATASE 68 IU/L (40-150); ANION GAP 10.9 mmol/L (8-16); BLOOD UREA NITROGEN 11 mg/dL (7-26); BUN/CREATININE RATIO 14 (6-25); CALCIUM 8.9 mg/dL (8.4-10.2); CARBON DIOXIDE 28 mmol/L (22-29); CHLORIDE 99 mmol/L (98-107); CREATININE, SERUM 0.76 mg/dL (0.72-1.25); EST GLOMERULAR FILTRATION RATE > 60 ML/MIN (60-); GLUCOSE 94 mg/dL (74-118); MAGNESIUM 1.8 MG/DL (1.3-2.1); POTASSIUM 3.9 mmol/L (3.5-5.1); SODIUM 134 mmol/L (136-145)
--- NOTE | 2019-10-02 07:00 | NUR ---
RECEIVED PATIENT AWAKE RESTING IN BED NO S/S OF DISTRESS. BED LOW, WHEELS LOCKED, SIDE RAILS X2, CALL LIGHT IN REACH WILL CONTINUE TO MONITOR PATIENT.
--- NOTE | 2019-10-02 07:04 | NUR ---
walking rounds done with kady RN, call light within reach
[2019-10-02] MEDS: POTASSIUM CHLORIDE 20 MEQ TAB CR PO SCH (08:02)
[2019-10-02] MEDS: FOLIC ACID 1 MG TAB PO SCH (08:02)
[2019-10-02] MEDS: SPIRONOLACTONE 25 MG TAB PO SCH (08:02)
[2019-10-02] MEDS: THIAMINE HCL 100 MG TAB PO SCH (08:02)
[2019-10-02] MEDS: PANTOPRAZOLE SOD 40 MG TABEC PO SCH (08:02)
[2019-10-02 08:05] VITALS: BP 121/74
[2019-10-02] MEDS ORDERED: Folic Acid PO (08:09)
[2019-10-02] MEDS ORDERED: PROTONIX40 MG/ML PO (08:09)
[2019-10-02] MEDS ORDERED: ALDACTONE25 MG PO (08:09)
[2019-10-02] MEDS ORDERED: B-1100 MG PO (08:09)
[2019-10-02] MEDS ORDERED: Ondansetron Oral Disintegratin PO (08:09)
[2019-10-02] MEDS ORDERED: LACTULOSE20 GM/30 M PO (08:09)
[2019-10-02] MEDS ORDERED: LASIX40 MG PO (08:09)
[2019-10-02] MEDS ORDERED: KLOR-CON M2020 MEQ PO (08:09)
[2019-10-02 08:21] VITALS: BP 134/77
--- NOTE | 2019-10-02 09:30 | NUR ---
REMOVED PATIENTS IV. CATHETER TIP INTACT AND PRESSURE DRESSING APPLIED.
--- NOTE | 2019-10-02 09:51 | NUR ---
PATIENT DISCHARGED FROM FACILITY. PATIENT GATHERED ALL PERSONAL BELONGINGS, DISCHARGE INSTRUCTIONS, AND FOLLOW UP INFORMATION. PATIENT LEFT UNIT IN WHEELCHAIR AND WENT HOME VIA PRIVATE AUTO. NO S/S OF DISTRESS LEAVING FACILITY.
--- NOTE | 2019-10-02 22:52 | Discharge Summary ---
CHIEF COMPLAINT: Swelling of the abdomen, legs, and scrotum. HISTORY OF PRESENT ILLNESS: Mr. Mccarthy is a 63-year-old male, who stated that the Tuesday prior to admission, he was supposed to have fluid drained from his abdomen on an outpatient basis, but that was delayed. His abdominal pain had worsened, thus he came into the ER to have the paracentesis. PAST MEDICAL HISTORY: Alcoholic cirrhosis, alcohol abuse, hyperlipidemia, ascites requiring paracentesis. Prior to admission, his most recent paracentesis was on 09/11/2019. Also, history of hypertension, coronary artery disease, enterocolitis, hypokalemia, and hypomagnesemia. PAST SURGICAL HISTORY: Paracentesis and coronary artery stents. FAMILY HISTORY: His mother had an IL at age 62. His father had a stroke. His brother had colon cancer. SOCIAL HISTORY: He smoked half-a-pack a day for 15-pack years. Heavy alcohol use. The patient states he drinks 4 ounces of hard liquor per week currently. ALLERGIES: NO KNOWN ALLERGIES. ADMITTING DIAGNOSES: 1. Massive ascites due to alcoholic cirrhosis. 2. Alcoholic cirrhosis of the liver with daily hard liquor use. 3. Anemia of chronic illness. DISCHARGE DIAGNOSES: 1. Ascites due to decompensated alcoholic cirrhosis, status post large volume paracentesis on 09/25/2019, with 10.2 L removed and status post paracentesis on 10/01/2019, with 5.5 L removed. 2. Ileus, resolved. 3. Alcoholism. 4. Acute urinary tract infection with Streptococcus viridans and Escherichia coli, present on arrival. On admission, WBCs 7.55, hemoglobin 13.8, hematocrit 40.9, and platelets 142. Ammonia level 94. Sodium 135, potassium 4.3, BUN 12, creatinine 0.76, and estimated GFR greater than 60. Magnesium 1.8. Alkaline phosphatase 156, AST 52, and ALT 23. Total protein 7.6 and albumin 2.8. Urinalysis showed trace amount of protein, specific gravity 1.03, trace amount of blood, trace amount of leukocyte esterase, and wbc's 6 to 10. Blood cultures collected on September 23 showed no growth after [address] and pelvis [address] showed large volume abdominopelvic ascites, cirrhosis and portal hypertension, mild steatosis. Stable low attenuating hepatic lesion. Mild small bowel ileus, likely secondary to ascites, bibasilar atelectasis. Chest x-ray that was done on September 24 showed low lung volumes with patchy bibasilar opacities, likely atelectasis. On September 29, it was noted that his left lower extremity had more edema than the right, and a venous Doppler ultrasound to rule out DVT was completed, was negative for DVT. KUB on September 28 showed findings likely representing mild ileus and ascites. Study was repeated on the showed air-filled small and large bowel loops, compatible with ileus without specific findings of bowel obstruction. KUB completed yesterday on September 30 showed unchanged gaseous distension of small bowel loops measuring up to 3.[address] Asael Allan, Dr. Edmar Bowman, and Dr. Clinton Ram. Early next stay, the Lasix was increased to 4 times a day 40 mg IV and Aldactone 50 mg was added b.i.d. He also had marked scrotal edema, thus Urology was consulted and the scrotum was elevated. A 10.2 L off the first paracentesis. Magnesium and potassium repletion were completed p.r.n. On September 25, the Aldactone was increased to 100 mg p.o. b.i.d. due to the inevitable shortage of Lasix, which is made in [place]. His Lasix was changed from Lasix 40 mg q.6 hours to Bumex 1 mg IV every 6 hours. On September 27, the patient was changed from a clear liquid diet to n.p.o. due to the ileus. He received a laxative. For the urinary tract infection, Rocephin was utilized. Antibiotics were changed to ampicillin. He had 2 small BMs on September 29. The patient's blood pressure stable after the second paracentesis yesterday, which 5.5 L removed, 121/74, ascitic fluid. WBCs 96. Gram-stain showed no organisms. Cultures pending. IV Bumex changed to Lasix 40 mg p.o. q.i.d. Also, send him home on potassium chloride 20 mEq q.i.d. to prevent hypokalemia. Prescriptions for lactulose, folic acid, p.r.n. Zofran, Protonix, Aldactone, B1 vitamin were all sent with the patient. DIET: He is to continue 2 g sodium diet. ACTIVITY LEVEL: As tolerated. FOLLOWUP: Follow up with Dr. Ram in a month. Follow up with Dr. Allan in one week. Follow up with the PCP in 1 to 2 weeks. LABORATORY DATA: From today the day of discharge; sodium 134, potassium 3.9, chloride 99, CO2 28, BUN 11, creatinine 0.76, and estimated GFR greater than 60. WBC is 5.18, hemoglobin 12.2, hematocrit 35.4, and platelets 103. Total bilirubin 2.3. Dictated by Tayo Tim NP MD ARN[facility] CasanovaP/MODL /[id number]
[2019-11-06] MEDS ORDERED: lactulose PO (08:38)
== END 2019-10-02 10:02 | disposition home or self-care (01) | DRG 433 ==
LOC: ER 14:12 → ERHOLD 15:42 → MED/SURG 09-25 15:03 → OBSVTOIN 09-26 10:01
PROVIDERS: ADMIT Internal Medicine; ATTEND Internal Medicine
PROC: 0W9G30Z Drainage of Peritoneal Cavity with Drainage Device, Percutaneous Approach (ICD-10-PCS; principal; 2019-10-01)
DX: K70.31 Alcoholic cirrhosis of liver with ascites (principal); N39.0 Urinary tract infection, site not specified; E87.1 Hypo-osmolality and hyponatremia; K56.7 Ileus, unspecified; E83.51 Hypocalcemia; D69.6 Thrombocytopenia, unspecified; B96.20 Unspecified Escherichia coli [E. coli] as the cause of diseases classified elsewhere; E78.5 Hyperlipidemia, unspecified; I10 Essential (primary) hypertension; I25.10 Atherosclerotic heart disease of native coronary artery without angina pectoris; Z82.3 Family history of stroke; Z80.0 Family history of malignant neoplasm of digestive organs; Z82.49 Family history of ischemic heart disease and other diseases of the circulatory system; F17.210 Nicotine dependence, cigarettes, uncomplicated; D63.8 Anemia in other chronic diseases classified elsewhere; B95.4 Other streptococcus as the cause of diseases classified elsewhere; F10.20 Alcohol dependence, uncomplicated; E87.6 Hypokalemia
CPT/HCPCS: 36415; 36600; 49083; 71045; 71046; 74018; 74022; 74177; 74470; 80048; 80053; 81001; 82140; 82150; 82550; 82553; 82607; 82805; 83615; 83690; 83735; 83880; 84100; 84157; 84484; 85025; 85610; 85730; 86850; 86900; 87040; 87070; 87086; 87186; 87205; 89051; 93005; 93971; 97139; 99284; C1729; G0378; J0290; J1940; J2270; J2405; J2543; J3411; J3475; P9047; Q0162; Q9967

== ENCOUNTER → 2019-10-23 | Outpatient (CLI) | payer MEDICARE ==
[~2019-10-23] MED LIST changes: +ALBUMIN 25% 12.5GM 50ML 200 ML IV ONE; +ALDACTONE25 MG PO; +B-1100 MG PO; +Folic Acid PO; +LACTULOSE20 GM/30 M PO; +LASIX40 MG PO; +Ondansetron Oral Disintegratin PO; +PROTONIX40 MG/ML PO; +lactulose PO
--- NOTE | 2019-10-23 10:47 | Diagnostic Imaging Report ---
PROCEDURE: Ultrasound-guided paracentesis Procedural Personnel Attending physician(s): Brianne Tejeda MD Pre-procedure diagnosis: Ascites Post-procedure diagnosis: Unchanged Indication: Cirrhosis, ascites Additional clinical history: None Complications: No immediate complications. IMPRESSION: Ultrasound-guided paracentesis with drainage of 7800 mL of serous fluid. Plan: Resume care by clinical team. PROCEDURE SUMMARY: - Limited abdominal ultrasound - Ultrasound-guided paracentesis - Additional procedure(s): None PROCEDURE DETAILS: Pre-procedure Consent: Informed consent for the procedure including risks, benefits and alternatives was obtained and time-out was performed prior to the procedure. Preparation: The site was prepared and draped using maximal sterile barrier technique including cutaneous antisepsis. Anesthesia/sedation Level of anesthesia/sedation: None Initial abdominal ultrasound Initial abdominal ultrasound was performed. Findings: Large ascites. A safe window for paracentesis was identified. Paracentesis Local anesthesia was administered. The peritoneal cavity was accessed and fluid return confirmed position. Ascites was drained. The catheter was then removed, and a sterile bandage was applied. Paracentesis access technique: Real-time ultrasound guidance. Catheter placed: 5Fr Yueh Post-drainage ultrasound: Not performed Additional Details Additional description of procedure: None Equipment details: None Specimens removed: Abdominal fluid Estimated blood loss (mL): Minimal (<10cc) Standardized report: [email or web address] Attestation Signer name: Brianne Tejeda MD I attest that I was present for the entire procedure. I reviewed the stored images and agree with the report as written. Signed by: Brianne Tejeda MD on 10/23/2019 10:43 AM
[2019-10-23 13:34] LABS: BODY FLUID COLOR YELLOW; BODY FLUID TYPE PERITONEAL
[2019-10-23 13:35] LABS: BODY FLUID APPEARANCE CLEAR; RBC,BODY FLUID 55 cells/uL; WBC,BODY FLUID 220 cells/uL
[2019-10-23 13:39] LABS: LYMPHOCYTES,BODY FLUID 49 %; MONO/MACROPHG,BODY FLUID 44 %; NEUTROPHILS,BODY FLUID 1 %; OTHER CELLS,BODY FLUID 6 %
== END ==
LOC: US 08:19
PROVIDERS: ATTEND Internal Medicine Gastroenterology
DX: R18.8 Other ascites (principal); K74.60 Unspecified cirrhosis of liver
CPT/HCPCS: 36415; 49083; 82040; 82150; 82248; 82945; 83615; 83690; 83986; 84157; 84478; 87070; 87116; 87205; 87206; 88112; 88305; 89051; C1729

== ENCOUNTER → 2019-11-07 | Day surgery (SDC) | payer MEDICARE ==
[2019-11-06 08:58] LABS: BASOPHILS % 0.7 % (0.0-1.0); EOSINOPHILS # (AUTO) 0.1 (0.0-0.4); EOSINOPHILS % 1.7 % (0.0-6.0); HEMATOCRIT 36.9 % (38.2-49.6); HEMOGLOBIN 12.9 g/dL (14.0-18.0); LYMPHOCYTES # (AUTO) 1.4 (1.0-3.2); LYMPHOCYTES % 24.1 % (18.0-39.1); MEAN CORPUSCULAR HEMOGLOBIN 33.4 pg (28-32); MEAN CORPUSCULAR VOLUME 95.6 fL (81-99); MONOCYTES # (AUTO) 0.8 (0.2-0.8); MONOCYTES % 13.1 % (4.4-11.3); NEUTROPHILS # (AUTO) 3.5 (2.1-6.9); NEUTROPHILS % 60.2 % (38.7-80.0); PLATELET COUNT 120 x10e3/uL (140-360); RED BLOOD COUNT 3.86 x10e6/uL (4.3-5.7); RED CELL DISTRIBUTION WIDTH 13.8 % (11.7-14.4)
[2019-11-06 09:15] LABS: ALANINE AMINOTRANSFERASE 15 IU/L (0-55); ALBUMIN 3.4 g/dL (3.5-5.0); ALBUMIN/GLOBULIN RATIO 0.8 (0.8-2.0); ALKALINE PHOSPHATASE 133 IU/L (40-150); ANION GAP 12.5 mmol/L (8-16); BLOOD UREA NITROGEN 10 mg/dL (7-26); BUN/CREATININE RATIO 14 (6-25); CALCIUM 9.2 mg/dL (8.4-10.2); CARBON DIOXIDE 26 mmol/L (22-29); CHLORIDE 98 mmol/L (98-107); CREATININE, SERUM 0.71 mg/dL (0.72-1.25); EST GLOMERULAR FILTRATION RATE > 60 ML/MIN (60-); GLUCOSE 108 mg/dL (74-118); POTASSIUM 3.5 mmol/L (3.5-5.1); SODIUM 133 mmol/L (136-145)
[2019-11-06 09:58] LABS: INR 1.24; PARTIAL THROMBOPLASTIN TIME 33.7 seconds (23.8-35.5); PROTHROMBIN TIME 16.4 seconds (11.9-14.5)
[~2019-11-07] MED LIST changes: -ALBUMIN 25% 12.5GM 50ML 200 ML IV ONE; +FENTANYL CITRATE/PF 100MCG/2 ML INJ ONE; +METOCLOPRAMIDE HCL 10 MG/2ML VIAL ONE; +MIDAZOLAM HCL 2 MG/2 ML VIAL ONE; +PROPOFOL IV EMULSION 10 MG/ML 20 ML VIAL ONE; +PROPRANOLOL HCL 10 MG TAB PO SCH
[2019-11-07 13:35] VITALS: BP 138/94
--- NOTE | 2019-11-07 19:47 | Operative Report ---
DATE OF PROCEDURE: 11/07/2019 SURGEON: Asael Allan MD PROCEDURE: EGD with banding and biopsies. INDICATIONS FOR EGD: Decompensated cirrhosis, varices. MEDICATIONS: The patient was done under MAC, please see anesthesiologist's note. PROCEDURE IN DETAIL: With the patient in left lateral decubitus position, a flexible fiberoptic Olympus gastroscope was introduced into the esophagus under direct visualization without any difficulty. Grade 2-3 esophageal varices were noted without active bleeding or stigmata of recent hemorrhage. The scope was then advanced with ease into the stomach. Mucosa overlying the antrum and the body revealed some diffuse erythema and moderate edema, and some changes of portal hypertensive gastropathy more prominent in the body as well as the fundus. The pylorus was intubated with ease and the scope was advanced all the way to the second portion of the duodenum. The scope was then withdrawn slowly. Mucosa overlying the proximal second portion and the duodenal bulb appeared to be within normal limits. The scope was then withdrawn back into the stomach and retroflexed and mucosa overlying the fundus revealed also changes compatible with portal hypertensive gastropathy. A small gastric varix was noted at the cardia. The scope was then straightened out, it was subsequently withdrawn. The scope was then fitted for banding, was introduced into the esophagus and 3 bands were applied to 2 columns of varices. The scope was subsequently withdrawn. The patient tolerated the procedure well. IMPRESSION: 1. Esophageal varices grade 2-3, three bands applied to 2 columns of varices. 2. Gastritis, portal hypertensive, biopsies obtained and sent to stain for Helicobacter pylori. PLAN: Follow up histology. Continue Protonix 40 mg one p.o. before meals b.i.d., add propranolol 10 mg one p.o. b.i.d. Asael Allan MD [facility]/MODL /[id number] cc: Titus Borges MD
== END | disposition home or self-care (01) ==
LOC: OR 08:22
PROVIDERS: ATTEND Internal Medicine Gastroenterology
DX: K70.31 Alcoholic cirrhosis of liver with ascites (principal); I85.10 Secondary esophageal varices without bleeding; K29.50 Unspecified chronic gastritis without bleeding; K76.6 Portal hypertension; I86.4 Gastric varices; K31.89 Other diseases of stomach and duodenum; I25.10 Atherosclerotic heart disease of native coronary artery without angina pectoris; I10 Essential (primary) hypertension; F41.9 Anxiety disorder, unspecified; F17.210 Nicotine dependence, cigarettes, uncomplicated; F10.10 Alcohol abuse, uncomplicated; Z01.810 Encounter for preprocedural cardiovascular examination; Z95.5 Presence of coronary angioplasty implant and graft
CPT/HCPCS: 36415; 43239; 43244; 80053; 85025; 85610; 85730; 93005; J2250; J2704; J2765; J3010; 43255

== ENCOUNTER → 2019-12-06 | Outpatient (CLI) | payer MEDICARE ==
[~2019-12-06] MED LIST changes: -FENTANYL CITRATE/PF 100MCG/2 ML INJ ONE; -METOCLOPRAMIDE HCL 10 MG/2ML VIAL ONE; -MIDAZOLAM HCL 2 MG/2 ML VIAL ONE; -PROPOFOL IV EMULSION 10 MG/ML 20 ML VIAL ONE; -PROPRANOLOL HCL 10 MG TAB PO SCH
[2019-12-06 12:51] LABS: HEMOGLOBIN 14.1 g/dL (14.0-18.0)
[2019-12-06 13:23] LABS: INR 1.15; PROTHROMBIN TIME 15.5 seconds (11.9-14.5)
--- NOTE | 2019-12-06 14:50 | Diagnostic Imaging Report ---
US Guided Paracentesis. History: Recurrent ascites. Request for paracentesis. Construction Manager: Cordell Bee MD. Web Press Operator Apprentice: None. Modality: Ultrasonography Sedation: None. Anesthesia: Lidocaine local infiltration. Estimated blood loss: < 5 cc. Technique: Informed written consent was obtained. Discussion of risks, benefits, and alternatives were made with the patient. The patient expressed understanding and agreed to proceed. A universal timeout was performed prior to starting the procedure. Maximal sterile precautions were utilized. The procedure room personnel used personal protective equipment. The operators additionally used sterile surgical gloves. A preliminary ultrasonography was performed to assess the target and determine a safe access site. It showed ascites. Pertinent ultrasound images were stored to the PACS for documentation. The access site was selected and sterilely prepped and draped. Local anesthesia was administered. A dermatotomy was performed. A catheter over the needle system was advanced into the peritoneal cavity. Straw colored fluid was aspirated and the plastic catheter advanced into the peritoneum. The catheter was then connected to a fluid recovery system. At the end of the procedure, the catheter was withdrawn and an aseptic dressing applied. The patient tolerated the procedure well. After uneventful recovery recovery, the patient was discharged from the department in stable condition. The total amount of fluid recovered is given below. Complications: None immediate. Specimen: Sent to the lab. Impression: Successful ultrasound-guided paracentesis using a right lower quadrant access with recovery of 1.55 liters of fluid as described above. Thank you for the opportunity to assist in the care of your patient. Signed by: Crodell Bee MD on 12/06/2019 2:47 PM
[2019-12-06 17:29] LABS: BODY FLUID APPEARANCE CLOUDY; BODY FLUID COLOR STRAW; BODY FLUID TYPE PERITONEAL
[2019-12-06 18:26] LABS: RBC,BODY FLUID 298 cells/uL; WBC,BODY FLUID 92 cells/uL
[2019-12-06 19:05] LABS: LYMPHOCYTES,BODY FLUID 47 %; MONO/MACROPHG,BODY FLUID 44 %; NEUTROPHILS,BODY FLUID 3 %; OTHER CELLS,BODY FLUID 6 %
== END ==
LOC: US 12:00
PROVIDERS: ATTEND Internal Medicine Gastroenterology
DX: R18.8 Other ascites (principal); K74.60 Unspecified cirrhosis of liver
CPT/HCPCS: 36415; 49083; 82040; 82150; 82248; 82945; 83615; 83690; 83986; 84157; 84478; 85014; 85049; 85610; 85730; 87070; 87116; 87205; 87206; 88112; 88305; 89051

== ENCOUNTER → 2019-12-19 | Day surgery (SDC) | payer MEDICARE, OTHER ==
[2019-12-14 13:27] LABS: BASOPHILS % 0.9 % (0.0-1.0); EOSINOPHILS # (AUTO) 0.1 (0.0-0.4); EOSINOPHILS % 1.8 % (0.0-6.0); HEMOGLOBIN 14.1 g/dL (14.0-18.0); LYMPHOCYTES # (AUTO) 1.4 (1.0-3.2); MEAN CORPUSCULAR HEMOGLOBIN 32.1 pg (28-32); MEAN CORPUSCULAR HGB CONC 33.6 g/dL (31-35); MEAN CORPUSCULAR VOLUME 95.7 fL (81-99); MONOCYTES # (AUTO) 0.6 (0.2-0.8); MONOCYTES % 13.8 % (4.4-11.3); NEUTROPHILS # (AUTO) 2.4 (2.1-6.9); NEUTROPHILS % 52.3 % (38.7-80.0); PLATELET COUNT 116 x10e3/uL (140-360); RED BLOOD COUNT 4.39 x10e6/uL (4.3-5.7)
[2019-12-14 13:37] LABS: PARTIAL THROMBOPLASTIN TIME 32.8 seconds (23.8-35.5)
[2019-12-14 13:42] LABS: INR 1.25; PROTHROMBIN TIME 16.5 seconds (11.9-14.5)
[2019-12-14 13:45] LABS: ALANINE AMINOTRANSFERASE 19 IU/L (0-55); ALBUMIN 3.3 g/dL (3.5-5.0); ALBUMIN/GLOBULIN RATIO 0.7 (0.8-2.0); ALKALINE PHOSPHATASE 99 IU/L (40-150); ANION GAP 10.7 mmol/L (8-16); BLOOD UREA NITROGEN 9 mg/dL (7-26); BUN/CREATININE RATIO 11 (6-25); CALCIUM 9.6 mg/dL (8.4-10.2); CARBON DIOXIDE 28 mmol/L (22-29); CHLORIDE 102 mmol/L (98-107); CREATININE, SERUM 0.79 mg/dL (0.72-1.25); EST GLOMERULAR FILTRATION RATE > 60 ML/MIN (60-); GLUCOSE 143 mg/dL (74-118); POTASSIUM 3.7 mmol/L (3.5-5.1); SODIUM 137 mmol/L (136-145)
[~2019-12-19] MED LIST changes: +FENTANYL CITRATE/PF 100MCG/2 ML INJ ONE; +LIDOCAINE HCL 2% LOCAL INJ 5 ML SDV VIAL INJ ONE; +MIDAZOLAM HCL 2 MG/2 ML VIAL ONE; +PHYTONADIONE 10 MG/ML AMP SC ONE; +PROPOFOL IV EMULSION 10 MG/ML 20 ML VIAL ONE; +SPIRONOLACTONE25 MG PO
--- NOTE | 2019-12-19 07:15 | NUR ---
SPIRITUAL CARE - Pre-Surgery Assessment: Pt in bed. Pt's at bedside. Pt reported supportive attention from family and friends. Intervention: I provided pastoral presence, hospitality, and sympathetic listening. I acquainted pt with availability of architect while hospitalized. Outcome: Pt expressed appreciation for visit. No need for follow up indicated at this time. [facility] [place] [facility] O: [phone]
[2019-12-19 09:00] VITALS: BP 131/87
--- NOTE | 2019-12-19 14:50 | Operative Report ---
DATE OF PROCEDURE: 12/19/2019 SURGEON: Asael Allan MD PROCEDURE: EGD with banding of esophageal varices and biopsies. INDICATIONS FOR EGD: History of esophageal varices, in for additional banding. MEDICATIONS: The patient was done under MAC, please see anesthesiologist's note. PROCEDURE IN DETAIL: With the patient in left lateral decubitus position, flexible fiberoptic Olympus gastroscope was introduced into the esophagus under direct visualization without any difficulty. An extrinsic compression was noted in the left vallecula. Grade 2 esophageal varices were noted in the esophagus. There was no active bleeding. There was one red marvin noted on one of the varices. The scope was then advanced with ease into the stomach. Mucosa overlying the antrum and the body revealed changes compatible with portal hypertensive gastropathy. The pylorus was intubated with ease and the scope was advanced all the way to the second portion of the duodenum. The scope was then withdrawn slowly. Mucosa overlying the proximal second portion appeared to be within normal limits. nodule was noted in the duodenal bulb that was biopsied. The scope was then withdrawn back into the stomach and retroflexed, and no fundal or cardia varices were noted. The scope was then straightened out, it was subsequently withdrawn. Scope was then fitted for banding and was reintroduced into the esophagus. Five bands were applied to 3 columns of varices. The scope was subsequently withdrawn. The patient tolerated the procedure well. IMPRESSION: 1. Extrinsic compression in the left vallecula. 2. Grade 2 esophageal varices with red marvin on one of the varices. Five bands applied to 3 columns of varices. 3. Portal hypertensive gastropathy. 4. Duodenal bulb nodule, biopsied. PLAN: Follow up histology. Proceed with CT of the neck to evaluate the extrinsic compression noted on the EGD. MD OSMAN Quiroga/KENA /[id number] cc: Titus Schofield DO
== END | disposition home or self-care (01) ==
LOC: OR 06:06
PROVIDERS: ATTEND Internal Medicine Gastroenterology
DX: I85.00 Esophageal varices without bleeding (principal); K29.70 Gastritis, unspecified, without bleeding; R18.8 Other ascites; I10 Essential (primary) hypertension; F10.10 Alcohol abuse, uncomplicated; Z72.0 Tobacco use; K74.60 Unspecified cirrhosis of liver; Z95.5 Presence of coronary angioplasty implant and graft; I25.10 Atherosclerotic heart disease of native coronary artery without angina pectoris; K76.6 Portal hypertension; K31.89 Other diseases of stomach and duodenum; K63.89 Other specified diseases of intestine; K29.80 Duodenitis without bleeding; Z11.59 Encounter for screening for other viral diseases; Z01.812 Encounter for preprocedural laboratory examination
CPT/HCPCS: 36415; 43239; 43244; 80053; 85025; 85610; 85730; 87635; J2001; J2250; J2704; J3010; J3430; 43255

== ENCOUNTER → 2019-12-21 | Outpatient (CLI) | payer MEDICARE, OTHER ==
[~2019-12-21] MED LIST changes: -FENTANYL CITRATE/PF 100MCG/2 ML INJ ONE; +IOPAMIDOL 370 MG/ML 200 ML INFUS..BTL INJ ONE; -LIDOCAINE HCL 2% LOCAL INJ 5 ML SDV VIAL INJ ONE; -MIDAZOLAM HCL 2 MG/2 ML VIAL ONE; -PHYTONADIONE 10 MG/ML AMP SC ONE; -PROPOFOL IV EMULSION 10 MG/ML 20 ML VIAL ONE; +SODIUM CHLORIDE 0.9% 50ML 50 ML ONE
--- NOTE | 2019-12-21 14:07 | Diagnostic Imaging Report ---
History: Esophageal varices Comparison studies: None Technique: Axial, coronal and sagittal images from the skull base to the thoracic inlet. Coronal and sagittal images reconstructed from the axial data. Intravenous contrast: 100 cc of Omnipaque 300. Dose modulation, iterative reconstruction, and/or weight based adjustment of the mA/kV was utilized to reduce the radiation dose to as low as reasonably achievable. Findings: Soft tissues: No abnormalities. Masses: None. Lymph nodes: No radiographically significant adenopathy. Vessels: Arteries and veins are patent. Atherosclerotic calcifications of the aortic arch and branches. Atherosclerotic calcifications at the bilateral carotid bulbs results in at least moderate canal stenosis on the right in no significant stenosis on the left Glands (thyroid and parotid): Normal in size and symmetric. No masses. Mild dilation of the submandibular glands without evidence of distal obstruction Orbits: No abnormalities. Paranasal sinuses: Clear. Temporal bones: No abnormalities. Skull base and facial bones: Intact. Cervical spine: Moderate degenerative foraminal narrowing at C4-5 on the left, C5-6 bilaterally at C6-7 on the left. No high-grade canal stenosis. IMPRESSION: 1. At least moderate stenosis of the right carotid bulb secondary to atherosclerotic disease, recommend nonemergent carotid ultrasound. 2. Nonspecific mild dilation of the submandibular gland ducts without evidence of distal obstruction. No sizable neck masses or lymphadenopathy. Signed by: DR Yobani Elias M.D. on 12/21/2019 2:04 PM
== END ==
LOC: CT 12:46
PROVIDERS: ATTEND Internal Medicine Gastroenterology
DX: I83.90 Asymptomatic varicose veins of unspecified lower extremity (principal)
CPT/HCPCS: 70491; Q9967

== ENCOUNTER 2020-01-07 19:12 | Emergency (ER) | payer MEDICARE, OTHER ==
[~2020-01-07] VITALS: Ht 165.1 cm; Wt 67.1 kg
[~2020-01-07 19:12] MED LIST changes: -IOPAMIDOL 370 MG/ML 200 ML INFUS..BTL INJ ONE; -SODIUM CHLORIDE 0.9% 50ML 50 ML ONE
--- NOTE | 2020-01-07 20:14 | Emergency Department Note ---
History of Present Illnes History of Present Illness Chief Complaint: Abdominal Complaints History of Present Illness This is a 64 year old male SENT TO ED BY DR. Savage GARCIA TO GIVE MEDICATION TO "CALM DOWN" PT WAS AGGRESSIVE ON TUESDAY; MD "WANTS HIS AMMONIA LEVEL CHECKED" PER SPOUSE. pt is calm, alert and oriented times three at this time. . Arrival Mode: Car Onset (how long ago): day(s) (4) Location: none Quality: aggressive on tuesday Severity: mild Onset quality: sudden Duration (how long): day(s) (4) Progression: resolved Chronicity: recurrent Relieving factors: none Exacerbating factors: none Associated symptoms: Reports denies other symptoms Treatments prior to arrival: none Past Medical/Family History Physician Review I have reviewed the patient's past medical and family history. Any updates have been documented here. Past Medical History Recent Fever: No Clinical Suspicion of Infectio: No New/Unexplained Change in Ment: No Past Medical History: Liver Disease Other Medical History: ETOH ABUSE LIVER CIRROHSIS HIGH CHOLESTEROL Other Surgery: STENT 2015 PARACENTESIS Social History Smoking Cessation: Never Smoker Alcohol Use: Occasional Any Illegal Drug Use: No Family History Family history of heart diseas: No Other Last Tetanus: OOD Review of Systems Review of Systems Constitutional: Reports no symptoms EENTM: Reports no symptoms Cardiovascular: Reports no symptoms Respiratory: Reports no symptoms Gastrointestinal: Reports no symptoms Genitourinary: Reports no symptoms Musculoskeletal: Reports no symptoms Integumentary: Reports no symptoms Neurological: Reports as per HPI Psychological: Reports no symptoms Endocrine: Reports no symptoms Hematological/Lymphatic: Reports no symptoms Physical Exam Related Data Allergies: Coded Allergies: No Known Allergies (Unverified , 08/01/17) Triage Vital Signs Vital Signs Date Time Temp Pulse Resp B/P (MAP) Pulse Ox O2 Delivery O2 Flow Rate FiO2 01/07/20 19:53 98.7 79 18 146/70 98 Vital signs reviewed: Yes Physical Exam CONSTITUTIONAL Constitutional: Present well-developed, Present well-nourished HENT HENT: Present normocephalic, Present atraumatic, Present oropharynx clear/moist, Present nose normal HENT L/R: Present left ext ear normal, Present right ext ear normal EYES Eyes: Reports PERRL, Reports conjunctivae normal NECK Neck: Present ROM normal PULMONARY Pulmonary: Present effort normal, Present breath sounds normal CARDIOVASCULAR Cardiovascular: Present regular rhythm, Present heart sounds normal, Present capillary refill normal, Present normal rate GASTROINTESTINAL Abdominal: Present soft, Present nontender, Present bowel sounds normal GENITOURINARY Genitourinary: Present exam deferred SKIN Skin: Present warm, Present dry MUSCULOSKELETAL Musculoskeletal: Present ROM normal NEUROLOGICAL Neurological: Present alert, Present oriented x 3, Present no gross motor or sensory deficits, Present other (no asterixis present on exam) PSYCHOLOGICAL Psychological: Present mood/affect normal, Present judgement normal Results Laboratory Laboratory Laboratory Tests Test 01/07/20 19:50 White Blood Count 6.13 x10e3/uL (4.8-10.8) Red Blood Count 4.53 x10e6/uL (4.3-5.7) Hemoglobin 14.5 g/dL (14.0-18.0) Hematocrit 42.6 % (38.2-49.6) Mean Corpuscular Volume 94.0 fL (81-99) Mean Corpuscular Hemoglobin 32.0 pg (28-32) Mean Corpuscular Hemoglobin Concent 34.0 g/dL (31-35) Red Cell Distribution Width 13.7 % (11.7-14.4) Platelet Count 139 x10e3/uL (140-360) Neutrophils (%) (Auto) 53.5 % (38.7-80.0) Lymphocytes (%) (Auto) 28.9 % (18.0-39.1) Monocytes (%) (Auto) 13.2 % (4.4-11.3) Eosinophils (%) (Auto) 2.8 % (0.0-6.0) Basophils (%) (Auto) 1.1 % (0.0-1.0) Neutrophils # (Auto) 3.3 (2.1-6.9) Lymphocytes # (Auto) 1.8 (1.0-3.2) Monocytes # (Auto) 0.8 (0.2-0.8) Eosinophils # (Auto) 0.2 (0.0-0.4) Basophils # (Auto) 0.1 (0.0-0.1) Absolute Immature Granulocyte (auto 0.03 x10e3/uL (0-0.1) Urine Color Yellow (YELLOW) Urine Clarity Sl cloudy (CLEAR) Urine pH 7 (5 - 7) Urine Specific [place] 1.025 (1.010-1.025) Urine Protein Negative (NEGATIVE) Urine Glucose (UA) Negative (NEGATIVE) Urine Ketones Negative (NEGATIVE) Urine Blood Negative (NEGATIVE) Urine Nitrite Negative (NEGATIVE) Urine Bilirubin Negative (NEGATIVE) Urine Urobilinogen 1 mg/dL (0.2 - 1) Urine Leukocyte Esterase Negative (NEGATIVE) Urine RBC None /HPF (0-5) Urine WBC None /HPF (0-5) Urine Epithelial Cells None /LPF (NONE) Urine Bacteria Moderate /HPF (NONE) Urine Hyaline Casts 2-5 (0-1) Sodium Level 135 mmol/L (136-145) Potassium Level 4.1 mmol/L (3.5-5.1) Chloride Level 100 mmol/L (98-107) Carbon Dioxide Level 26 mmol/L (22-29) Anion Gap 13.1 mmol/L (8-16) Blood Urea Nitrogen 11 mg/dL (7-26) Creatinine 0.79 mg/dL (0.72-1.25) Estimat Glomerular Filtration Rate > 60 ML/MIN (60-) BUN/Creatinine Ratio 14 (6-25) Glucose Level 107 mg/dL (74-118) Calcium Level 9.7 mg/dL (8.4-10.2) Total Bilirubin 1.0 mg/dL (0.2-1.2) Aspartate Amino Transf (AST/SGOT) 32 IU/L (5-34) Alanine Aminotransferase (ALT/SGPT) 15 IU/L (0-55) Alkaline Phosphatase 128 IU/L (40-150) Ammonia 102 UG/DL (31-123) Total Protein 8.2 g/dL (6.5-8.1) Albumin 3.7 g/dL (3.5-5.0) Globulin 4.5 g/dL (2.3-3.5) Albumin/Globulin Ratio 0.8 (0.8-2.0) Amylase Level 76 U/L (25-125) Lipase 28 U/L (8-78) Lab results reviewed: Yes Assessment & Plan Medical Decision Making MDM pt here for reported aggressive behavior tuesday, also c/o back pain. i spoke with dr radha garcia and told him pt is calm and oriented at this time without asterixis on exam cbc, cmp, ammonia, amylase, lipase ordered to eval for pancreatitis, electrolyte abnormality, ammonia level. I SPOKE WITH DR Radha GARCIA ABOUT PT'S LABS, PT TO BE DISCHARGED, CALL DR GARCIA'S OFFICE IN THE MORNING TO SET UP FOLLOW UP THIS WEEK Assessment & Plan Final Impression: (1) Cirrhosis Depart Disposition: HOME, SELF-CARE Last Vital Signs Date Time Temp Pulse Resp B/P (MAP) Pulse Ox O2 Delivery O2 Flow Rate FiO2 01/07/20 19:53 98.7 79 18 146/70 98 Home Meds Active Scripts Furosemide (LASIX) 40 Mg Tablet, 40 MG PO QID for 14 Days, #56 TAB 0 Refills Prov:ARABELLA GUAMAN NP 10/02/19 Thiamine HCl (B-1) 100 Mg Tablet, 100 MG PO DAILY for 14 Days, #14 TAB 0 Refills Prov:ARABELLA GUAMAN NP 10/02/19 Pantoprazole Sod (PROTONIX) 40 Mg/Ml Susp, 40 MG PO BID for 14 Days, #14 0 Refills Prov:ARABELLA GUAMAN NP 10/02/19 [Folic Acid] 1 MG TAB No Conflict Check, 1 MG PO DAILY for 14 Days, TAB 0 Refills Prov:ARABELLA GUAMAN NP 10/02/19 Potassium Chloride (KLOR-CON M20) 20 Meq Tabcr, 20 MEQ PO BID for 14 Days Prov:ARABELLA GUAMAN NP 09/26/17 Reported Medications Spironolactone (SPIRONOLACTONE) 25 Mg Tablet, 50 MG PO DAILY, #60 TAB 12/13/19 [lactulose] No Conflict Check, 2 TBS PO BID 11/06/19 TYLOR DE LA CRUZ MD Jan 07, 2020 20:14
[2020-01-07 20:28] LABS: BASOPHILS # (AUTO) 0.1 (0.0-0.1); BASOPHILS % 1.1 % (0.0-1.0); EOSINOPHILS # (AUTO) 0.2 (0.0-0.4); EOSINOPHILS % 2.8 % (0.0-6.0); HEMATOCRIT 42.6 % (38.2-49.6); HEMOGLOBIN 14.5 g/dL (14.0-18.0); LYMPHOCYTES # (AUTO) 1.8 (1.0-3.2); LYMPHOCYTES % 28.9 % (18.0-39.1); MONOCYTES # (AUTO) 0.8 (0.2-0.8); MONOCYTES % 13.2 % (4.4-11.3); NEUTROPHILS # (AUTO) 3.3 (2.1-6.9); NEUTROPHILS % 53.5 % (38.7-80.0); PLATELET COUNT 139 x10e3/uL (140-360); RED BLOOD COUNT 4.53 x10e6/uL (4.3-5.7); RED CELL DISTRIBUTION WIDTH 13.7 % (11.7-14.4)
[2020-01-07 20:42] LABS: BILIRUBIN,URINE NEGATIVE (NEGATIVE); CLARITY,URINE SL CLOUDY (CLEAR); COLOR,URINE YELLOW (YELLOW); KETONES,URINE NEGATIVE (NEGATIVE); LEUKOCYTE ESTERASE ,URINE NEGATIVE (NEGATIVE); NITRITE,URINE NEGATIVE (NEGATIVE); PROTEIN,URINE DIPSTICK NEGATIVE (NEGATIVE); URINE UROBILINOGEN 1 mg/dL (0.2 - 1)
[2020-01-07 20:45] LABS: ALANINE AMINOTRANSFERASE 15 IU/L (0-55); ALBUMIN 3.7 g/dL (3.5-5.0); ALBUMIN/GLOBULIN RATIO 0.8 (0.8-2.0); ALKALINE PHOSPHATASE 128 IU/L (40-150); ANION GAP 13.1 mmol/L (8-16); BLOOD UREA NITROGEN 11 mg/dL (7-26); BUN/CREATININE RATIO 14 (6-25); CALCIUM 9.7 mg/dL (8.4-10.2); CARBON DIOXIDE 26 mmol/L (22-29); CHLORIDE 100 mmol/L (98-107); CREATININE, SERUM 0.79 mg/dL (0.72-1.25); EST GLOMERULAR FILTRATION RATE > 60 ML/MIN (60-); GLUCOSE 107 mg/dL (74-118); POTASSIUM 4.1 mmol/L (3.5-5.1); SODIUM 135 mmol/L (136-145)
[2020-01-07 20:46] LABS: AMYLASE 76 U/L (25-125); LIPASE 28 U/L (8-78)
[2020-01-07 20:56] LABS: BACTERIA,URINE MODERATE /HPF
== END 2020-01-08 01:42 | disposition home or self-care (01) ==
LOC: ER 19:12
DX: K74.60 Unspecified cirrhosis of liver (principal); E78.00 Pure hypercholesterolemia, unspecified; F10.10 Alcohol abuse, uncomplicated
CPT/HCPCS: 36415; 80053; 81001; 82140; 82150; 83690; 85025; 99283

== ENCOUNTER → 2020-01-14 | Outpatient (CLI) | payer MEDICARE ==
--- NOTE | 2020-01-14 16:00 | Diagnostic Imaging Report ---
PROCEDURE: Ultrasound-guided paracentesis Procedural Personnel Attending physician(s): Brianne Tejeda MD Pre-procedure diagnosis: Ascites Post-procedure diagnosis: Unchanged Indication: Cirrhosis, ascites Additional clinical history: None Complications: No immediate complications. IMPRESSION: Ultrasound-guided paracentesis with drainage of 2500 mL of serous fluid. Plan: Resume care by clinical team. PROCEDURE SUMMARY: - Limited abdominal ultrasound - Ultrasound-guided paracentesis - Additional procedure(s): None PROCEDURE DETAILS: Pre-procedure Consent: Informed consent for the procedure including risks, benefits and alternatives was obtained and time-out was performed prior to the procedure. Preparation: The site was prepared and draped using maximal sterile barrier technique including cutaneous antisepsis. Anesthesia/sedation Level of anesthesia/sedation: None Initial abdominal ultrasound Initial abdominal ultrasound was performed. Findings: Moderate ascites. A safe window for paracentesis was identified. Paracentesis Local anesthesia was administered. The peritoneal cavity was accessed and fluid return confirmed position. Ascites was drained. The catheter was then removed, and a sterile bandage was applied. Paracentesis access technique: Real-time ultrasound guidance. Catheter placed: 5Fr Yueh Post-drainage ultrasound: Not performed Additional Details Additional description of procedure: None Equipment details: None Specimens removed: Abdominal fluid Estimated blood loss (mL): Minimal (<10cc) Standardized report: [email or web address] Attestation Signer name: Brianne Tejeda MD I attest that I was present for the entire procedure. I reviewed the stored images and agree with the report as written. Signed by: Brianne Tejeda MD on 01/14/2020 3:57 PM
[2020-01-14 16:28] LABS: RBC,BODY FLUID 154 cells/uL; WBC,BODY FLUID 123 cells/uL
[2020-01-14 16:38] LABS: BODY FLUID APPEARANCE SL.CLOUDY; BODY FLUID COLOR YELLOW; BODY FLUID TYPE PERITONEAL
[2020-01-14 17:58] LABS: LYMPHOCYTES,BODY FLUID 52 %; MONO/MACROPHG,BODY FLUID 6 %; NEUTROPHILS,BODY FLUID 3 %; OTHER CELLS,BODY FLUID 39 %
== END ==
LOC: US 14:08
PROVIDERS: ATTEND Internal Medicine Gastroenterology
DX: R18.8 Other ascites (principal); K74.60 Unspecified cirrhosis of liver
CPT/HCPCS: 36415; 49083; 82040; 82150; 82248; 82945; 83615; 83690; 83986; 84157; 84478; 87070; 87116; 87205; 87206; 88112; 88305; 89051

== ENCOUNTER → 2020-08-26 | Outpatient (CLI) | payer MEDICARE ==
[~2020-08-26] MED LIST changes: +PROPRANOLOL HCL10 MG PO
[2020-08-26 11:50] LABS: BASOPHILS # (AUTO) 0.1 (0.0-0.1); BASOPHILS % 1.1 % (0.0-1.0); EOSINOPHILS # (AUTO) 0.1 (0.0-0.4); EOSINOPHILS % 1.1 % (0.0-6.0); HEMOGLOBIN 14.3 g/dL (14.0-18.0); LYMPHOCYTES # (AUTO) 1.2 (1.0-3.2); LYMPHOCYTES % 22.5 % (18.0-39.1); MEAN CORPUSCULAR HEMOGLOBIN 33.6 pg (28-32); MEAN CORPUSCULAR HGB CONC 34.9 g/dL (31-35); MEAN CORPUSCULAR VOLUME 96.2 fL (81-99); MONOCYTES # (AUTO) 0.6 (0.2-0.8); MONOCYTES % 11.9 % (4.4-11.3); NEUTROPHILS # (AUTO) 3.3 (2.1-6.9); PLATELET COUNT 101 x10e3/uL (140-360); RED BLOOD COUNT 4.26 x10e6/uL (4.3-5.7); RED CELL DISTRIBUTION WIDTH 13.1 % (11.7-14.4)
[2020-08-26 12:01] LABS: INR 1.21; PROTHROMBIN TIME 16.1 seconds (11.9-14.5)
[2020-08-26 12:02] LABS: PARTIAL THROMBOPLASTIN TIME 31.3 seconds (23.8-35.5)
[2020-08-26 12:08] LABS: ALANINE AMINOTRANSFERASE 38 IU/L (0-55); ALBUMIN 3.8 g/dL (3.5-5.0); ALKALINE PHOSPHATASE 182 IU/L (40-150); ANION GAP 18.7 mmol/L (8-16); BLOOD UREA NITROGEN 5 mg/dL (7-26); BUN/CREATININE RATIO 9 (6-25); CALCIUM 8.5 mg/dL (8.4-10.2); CARBON DIOXIDE 18 mmol/L (22-29); CHLORIDE 99 mmol/L (98-107); CREATININE, SERUM 0.56 mg/dL (0.72-1.25); EST GLOMERULAR FILTRATION RATE > 60 ML/MIN (60-); GLUCOSE 102 mg/dL (74-118); POTASSIUM 3.7 mmol/L (3.5-5.1); SODIUM 132 mmol/L (136-145)
[2020-08-26 16:20] LABS: BODY FLUID COLOR YELLOW; BODY FLUID TYPE PERITONEAL
[2020-08-26 16:21] LABS: BODY FLUID APPEARANCE SL.CLOUDY
[2020-08-26 16:22] LABS: RBC,BODY FLUID 358 cells/uL; WBC,BODY FLUID 494 cells/uL
[2020-08-26 17:02] LABS: LYMPHOCYTES,BODY FLUID 49 %; MONO/MACROPHG,BODY FLUID 20 %; NEUTROPHILS,BODY FLUID 4 %; OTHER CELLS,BODY FLUID 27 %
== END ==
LOC: US 11:16
PROVIDERS: ATTEND Internal Medicine Gastroenterology
DX: K70.31 Alcoholic cirrhosis of liver with ascites (principal)
CPT/HCPCS: 36415; 49083; 80053; 82040; 82150; 82248; 82945; 83615; 83690; 83986; 84157; 84478; 85025; 85610; 85730; 87070; 87116; 87205; 87206; 88112; 88305; 89051

== ENCOUNTER → 2020-10-08 | Outpatient (CLI) | payer MEDICARE ==
[2020-10-08 12:37] LABS: HEMOGLOBIN 14.2 g/dL (14.0-18.0)
[2020-10-08 12:49] LABS: INR 1.17; PROTHROMBIN TIME 15.7 seconds (11.9-14.5)
[2020-10-08 12:50] LABS: PARTIAL THROMBOPLASTIN TIME 31.5 seconds (23.8-35.5)
[2020-10-08 15:01] LABS: RBC,BODY FLUID 257 cells/uL; WBC,BODY FLUID 51 cells/uL
[2020-10-08 15:17] LABS: LYMPHOCYTES,BODY FLUID 31 %; MONO/MACROPHG,BODY FLUID 32 %; NEUTROPHILS,BODY FLUID 0 %; OTHER CELLS,BODY FLUID 37 %
[2020-10-08 15:25] LABS: BODY FLUID APPEARANCE CLOUDY; BODY FLUID COLOR STRAW; BODY FLUID TYPE PERITONEAL
== END ==
LOC: US 12:20
PROVIDERS: ATTEND Internal Medicine Gastroenterology
DX: K70.31 Alcoholic cirrhosis of liver with ascites (principal)
CPT/HCPCS: 36415; 49083; 82040; 82150; 82248; 82945; 83615; 83690; 83986; 84157; 84478; 85014; 85049; 85610; 85730; 87070; 87116; 87205; 87206; 88112; 88305; 89051

== ENCOUNTER → 2021-01-02 | Outpatient (CLI) | payer MEDICARE ==
[~2021-01-02] MED LIST changes: +ALBUMIN 25% 12.5GM 50ML 200 ML IV ONE
[2021-01-02 12:51] LABS: HEMOGLOBIN 12.3 g/dL (14.0-18.0)
[2021-01-02 13:01] LABS: INR 1.13; PROTHROMBIN TIME 15.1 seconds (11.9-14.5)
[2021-01-02 13:02] LABS: PARTIAL THROMBOPLASTIN TIME 30.4 seconds (23.8-35.5)
[2021-01-02 15:48] LABS: BODY FLUID APPEARANCE CLOUDY; BODY FLUID COLOR YELLOW; BODY FLUID TYPE PERITONEAL
[2021-01-02 15:57] LABS: WBC,BODY FLUID 192 cells/uL
[2021-01-02 15:58] LABS: RBC,BODY FLUID 1000 cells/uL
[2021-01-02 16:37] LABS: LYMPHOCYTES,BODY FLUID 68 %; MONO/MACROPHG,BODY FLUID 17 %; NEUTROPHILS,BODY FLUID 3 %
[2021-01-02 16:38] LABS: OTHER CELLS,BODY FLUID 12 %
== END ==
LOC: US 12:27
PROVIDERS: ATTEND Internal Medicine Gastroenterology
DX: R18.8 Other ascites (principal)
CPT/HCPCS: 36415; 49083; 85014; 85049; 85610; 85730; 87070; 87205; 89051

== ENCOUNTER → 2021-01-21 | Outpatient (CLI) | payer MEDICARE ==
[2021-01-21 15:46] LABS: BODY FLUID APPEARANCE SL.CLOUDY; BODY FLUID COLOR YELLOW; BODY FLUID TYPE PERITONEAL; RBC,BODY FLUID < 2000 cells/uL; WBC,BODY FLUID 164 cells/uL
[2021-01-21 19:24] LABS: LYMPHOCYTES,BODY FLUID 9 %; MONO/MACROPHG,BODY FLUID 35 %; NEUTROPHILS,BODY FLUID 1 %; OTHER CELLS,BODY FLUID 55 %
== END ==
LOC: US 10:07
PROVIDERS: ATTEND Internal Medicine Gastroenterology
DX: K70.31 Alcoholic cirrhosis of liver with ascites (principal)
CPT/HCPCS: 36415; 49083; 87070; 87205; 88112; 88305; 89051

== ENCOUNTER 2021-02-13 16:40 | Inpatient (IN) | payer MEDICARE ==
[~2021-02-13] VITALS: Ht 165.1 cm; Wt 72.7 kg
[~2021-02-13 16:40] MED LIST changes: -ALBUMIN 25% 12.5GM 50ML 200 ML IV ONE
[2021-02-13 17:18] LABS: BASOPHILS # (AUTO) 0.1 (0.0-0.1); BASOPHILS % 0.5 % (0.0-1.0); EOSINOPHILS % 0.3 % (0.0-6.0); HEMATOCRIT 24.9 % (38.2-49.6); HEMOGLOBIN 8.1 g/dL (14.0-18.0); LYMPHOCYTES # (AUTO) 1.2 (1.0-3.2); LYMPHOCYTES % 13.2 % (18.0-39.1); MEAN CORPUSCULAR HEMOGLOBIN 31.3 pg (28-32); MEAN CORPUSCULAR HGB CONC 32.5 g/dL (31-35); MEAN CORPUSCULAR VOLUME 96.1 fL (81-99); MONOCYTES # (AUTO) 0.7 (0.2-0.8); MONOCYTES % 7.8 % (4.4-11.3); NEUTROPHILS # (AUTO) 7.3 (2.1-6.9); NEUTROPHILS % 77.5 % (38.7-80.0); PLATELET COUNT 159 x10e3/uL (140-360); RED BLOOD COUNT 2.59 x10e6/uL (4.3-5.7); RED CELL DISTRIBUTION WIDTH 14.2 % (11.7-14.4)
[2021-02-13 17:25] LABS: INR 1.32; PROTHROMBIN TIME 16.6 seconds (11.9-14.5)
[2021-02-13 17:26] LABS: PARTIAL THROMBOPLASTIN TIME 28.1 seconds (23.8-35.5)
[2021-02-13] MEDS ORDERED: ONDANSETRON HCL INJ 2MG/ML 2ML 2 MG/ML VIAL IV STA (17:28)
[2021-02-13] MEDS ORDERED: SODIUM CHLORIDE 0.9% 250ML 250 ML IV ONE (17:30)
[2021-02-13] MEDS ORDERED: SODIUM CHLORIDE 0.9% 1000ML 1,000 ML IV ONE (17:30)
[2021-02-13 17:33] LABS: ALBUMIN 3.2 g/dL (3.5-5.0); ALBUMIN/GLOBULIN RATIO 1.1 (0.8-2.0); ANION GAP 17.5 mmol/L (8-16); CALCIUM 8.2 mg/dL (8.4-10.2); CREATININE, SERUM 0.71 mg/dL (0.72-1.25); POTASSIUM 3.5 mmol/L (3.5-5.1)
[2021-02-13 17:39] LABS: CREATINE KINASE MB 0.8 ng/mL (0-5.0)
[2021-02-13] MEDS: OCTREOTIDE ACETATE 500 MCG in SODIUM CHLORIDE 0.9% 250ML 249 ML IV SCH (17:50)
[2021-02-13] MEDS ORDERED: MULTIVITAMINS- 12 INJECTION 10 ML, FOLIC ACID MDV 5 MG, THIAMINE HCL INJ 100 MG in SODI... IV ONE (18:00)
[2021-02-13] MEDS ORDERED: IOPAMIDOL 370 MG/ML 200 ML INFUS..BTL INJ ONE (18:29)
[2021-02-13] MEDS ORDERED: SODIUM CHLORIDE 0.9% 100 ML ONE (18:29)
[2021-02-13] MEDS ORDERED: PHYTONADIONE 10 MG/ML AMP IV ONE (20:15)
[2021-02-14] VITALS (8 sets, daily range): BP systolic 94–128; BP diastolic 53–76
[2021-02-14] MEDS ORDERED: LORAZEPAM INJ 2 MG/ML VIAL IV PRN (02:00)
[2021-02-14 02:07] LABS: HEMATOCRIT 24.2 % (38.2-49.6)
[2021-02-14] MEDS: CEFTRIAXONE 1 GM in SODIUM CHLORIDE 0.9% 50ML 50 ML IV SCH ×2 (03:25→13:01)
[2021-02-14] MEDS ORDERED: SODIUM CHLORIDE 0.9% 1000ML 1,000 ML ONE (03:41)
[2021-02-14] MEDS: SODIUM CHLORIDE 0.9% 1000ML 1,000 ML IV SCH ×3 (03:44→20:17)
[2021-02-14] MEDS: ONDANSETRON HCL INJ 2MG/ML 2ML 2 MG/ML VIAL IV PRN ×2 (03:46→08:41)
[2021-02-14] MEDS ORDERED: ALBUTEROL/IPRATROPIUM 3 ML NEB ONE (04:37)
[2021-02-14 06:10] LABS: BASOPHILS % 0.3 % (0.0-1.0); EOSINOPHILS % 0.3 % (0.0-6.0); HEMATOCRIT 21.2 % (38.2-49.6); LYMPHOCYTES # (AUTO) 0.7 (1.0-3.2); LYMPHOCYTES % 8.2 % (18.0-39.1); MEAN CORPUSCULAR HEMOGLOBIN 29.7 pg (28-32); MEAN CORPUSCULAR HGB CONC 32.5 g/dL (31-35); MEAN CORPUSCULAR VOLUME 91.4 fL (81-99); MONOCYTES # (AUTO) 0.5 (0.2-0.8); NEUTROPHILS # (AUTO) 6.8 (2.1-6.9); NEUTROPHILS % 84.8 % (38.7-80.0); PLATELET COUNT 89 x10e3/uL (140-360); RED BLOOD COUNT 2.32 x10e6/uL (4.3-5.7); RED CELL DISTRIBUTION WIDTH 16.5 % (11.7-14.4)
[2021-02-14] MEDS ORDERED: SODIUM CHLORIDE 0.9% 250ML 250 ML IV ONE ×2 (06:30→12:45)
[2021-02-14 06:53] LABS: ALBUMIN 2.9 g/dL (3.5-5.0); ALBUMIN/GLOBULIN RATIO 1.3 (0.8-2.0); ANION GAP 13.7 mmol/L (8-16); CALCIUM 7.5 mg/dL (8.4-10.2); CREATININE, SERUM 0.7 mg/dL (0.72-1.25); POTASSIUM 3.7 mmol/L (3.5-5.1)
[2021-02-14] MEDS: OCTREOTIDE ACETATE 500 MCG in SODIUM CHLORIDE 0.9% 250ML 249 ML IV SCH ×2 (07:05→16:05)
[2021-02-14] MEDS: THIAMINE HCL 100 MG TAB PO SCH (08:41)
[2021-02-14] MEDS: PROPRANOLOL HCL 10 MG TAB PO SCH ×2 (09:31→17:00)
[2021-02-14 12:19] LABS: BASOPHILS % 0.6 % (0.0-1.0); EOSINOPHILS % 1.2 % (0.0-6.0); LYMPHOCYTES # (AUTO) 0.5 (1.0-3.2); LYMPHOCYTES % 15.6 % (18.0-39.1); MEAN CORPUSCULAR HEMOGLOBIN 30.1 pg (28-32); MEAN CORPUSCULAR HGB CONC 31.8 g/dL (31-35); MEAN CORPUSCULAR VOLUME 94.6 fL (81-99); MONOCYTES # (AUTO) 0.3 (0.2-0.8); MONOCYTES % 9.4 % (4.4-11.3); NEUTROPHILS # (AUTO) 2.5 (2.1-6.9); NEUTROPHILS % 72.9 % (38.7-80.0); PLATELET COUNT 58 x10e3/uL (140-360); RED BLOOD COUNT 1.66 x10e6/uL (4.3-5.7); RED CELL DISTRIBUTION WIDTH 16.2 % (11.7-14.4)
[2021-02-14 12:21] LABS: HEMATOCRIT 15.7 % (38.2-49.6)
[2021-02-14 12:28] LABS: ALBUMIN 2.7 g/dL (3.5-5.0); ALBUMIN/GLOBULIN RATIO 1.2 (0.8-2.0); ANION GAP 11.8 mmol/L (8-16); CALCIUM 7.1 mg/dL (8.4-10.2); CREATININE, SERUM 0.59 mg/dL (0.72-1.25); POTASSIUM 3.8 mmol/L (3.5-5.1)
[2021-02-14] MEDS ORDERED: PHYTONADIONE 10 MG/ML AMP IV STA (12:37)
[2021-02-14] MEDS ORDERED: PHYTONADIONE 10 MG/ML ONE (12:51)
[2021-02-14] MEDS ORDERED: SODIUM CHLORIDE 0.9% 500ML 500 ML ONE (12:57)
[2021-02-14 12:58] LABS: ANISOCYTOSIS SLIGHT; HYPOCHROMASIA MODERATE; LYMPHOCYTES % (MANUAL) 18 % (19-48); MONOCYTES % (MANUAL) 7 % (3.4-9.0); NEUTROPHILS % (MANUAL) 75 % (40-74); POLYCHROMASIA FEW; RBC MORPHOLOGY COMMENT NORMAL
[2021-02-14 12:59] LABS: PLATELET ESTIMATE MODERATELY DECREASED
[2021-02-14] MEDS ORDERED: LACTULOSE SYRUP 20 GM/30 ML UDC RC ONE (13:00)
[2021-02-14 13:17] LABS: CLARITY,URINE CLEAR (CLEAR); COLOR,URINE YELLOW (YELLOW); KETONES,URINE NEGATIVE (NEGATIVE); LEUKOCYTE ESTERASE ,URINE NEGATIVE (NEGATIVE); NITRITE,URINE NEGATIVE (NEGATIVE); PROTEIN,URINE DIPSTICK NEGATIVE (NEGATIVE); URINE UROBILINOGEN 1 mg/dL (0.2 - 1)
[2021-02-14 13:28] LABS: WBC,URINE (MAN) 0-5 /HPF (0-5)
[2021-02-14] MEDS ORDERED: PHYTONADIONE IV ONE (13:30)
[2021-02-14] MEDS ORDERED: SODIUM CHLORIDE 0.9% IV ONE (13:30)
[2021-02-14] MEDS: LACTULOSE SYRUP 20 GM/30 ML UDC RC ONE ×2 (16:16→16:18)
[2021-02-14] MEDS ORDERED: EPINEPHRINE HCL 1:1000 1ML 1 MG/ML AMP ONE (17:42)
[2021-02-14] MEDS ORDERED: LACTULOSE SYRUP 20 GM/30 ML UDC RC PRN (18:15)
[2021-02-14] MEDS ORDERED: PROPOFOL IV EMULSION 10 MG/ML 20 ML VIAL ONE (19:34)
[2021-02-14] MEDS ORDERED: LACTULOSE SYRUP 20 GM/30 ML UDC ONE ×2 (20:42→20:52)
[2021-02-14] MEDS ORDERED: SODIUM CHLORIDE 0.9% 250ML 250 ML ONE (22:54)
[2021-02-15] VITALS (20 sets, daily range): BP systolic 111–136; BP diastolic 63–103
[2021-02-15 00:32] LABS: BASOPHILS % 0.6 % (0.0-1.0); EOSINOPHILS # (AUTO) 0.2 (0.0-0.4); EOSINOPHILS % 3.4 % (0.0-6.0); HEMATOCRIT 29.1 % (38.2-49.6); LYMPHOCYTES # (AUTO) 0.7 (1.0-3.2); LYMPHOCYTES % 14.7 % (18.0-39.1); MEAN CORPUSCULAR HEMOGLOBIN 30.5 pg (28-32); MEAN CORPUSCULAR VOLUME 92.4 fL (81-99); MONOCYTES # (AUTO) 0.5 (0.2-0.8); MONOCYTES % 11.3 % (4.4-11.3); NEUTROPHILS # (AUTO) 3.3 (2.1-6.9); NEUTROPHILS % 69.4 % (38.7-80.0); PLATELET COUNT 71 x10e3/uL (140-360); RED CELL DISTRIBUTION WIDTH 16.1 % (11.7-14.4)
[2021-02-15 00:43] LABS: HEMOGLOBIN 9.6 g/dL (14.0-18.0); RED BLOOD COUNT 3.15 x10e6/uL (4.3-5.7)
[2021-02-15] MEDS: RIFAXIMIN 550 MG TABLET PO SCH ×3 (01:01→17:23)
[2021-02-15 01:13] LABS: ALBUMIN 2.7 g/dL (3.5-5.0); ALBUMIN/GLOBULIN RATIO 1.2 (0.8-2.0); ANION GAP 11.2 mmol/L (8-16); CALCIUM 7.2 mg/dL (8.4-10.2); CREATININE, SERUM 0.57 mg/dL (0.72-1.25); POTASSIUM 3.2 mmol/L (3.5-5.1)
[2021-02-15] MEDS: OCTREOTIDE ACETATE 500 MCG in SODIUM CHLORIDE 0.9% 250ML 249 ML IV SCH ×3 (02:42→22:48)
[2021-02-15] MEDS: SODIUM CHLORIDE 0.9% 1000ML 1,000 ML IV SCH (04:12)
[2021-02-15] MEDS: Pantoprazole IV 40 MG in SODIUM CHLORIDE 0.9% 50ML 50 ML IV SCH ×4 (04:45→19:31)
[2021-02-15 05:59] LABS: BASOPHILS % 0.5 % (0.0-1.0); EOSINOPHILS # (AUTO) 0.1 (0.0-0.4); EOSINOPHILS % 2.1 % (0.0-6.0); HEMATOCRIT 28.4 % (38.2-49.6); HEMOGLOBIN 9.3 g/dL (14.0-18.0); LYMPHOCYTES # (AUTO) 0.6 (1.0-3.2); LYMPHOCYTES % 14.1 % (18.0-39.1); MEAN CORPUSCULAR HEMOGLOBIN 30.4 pg (28-32); MEAN CORPUSCULAR HGB CONC 32.7 g/dL (31-35); MEAN CORPUSCULAR VOLUME 92.8 fL (81-99); MONOCYTES # (AUTO) 0.3 (0.2-0.8); MONOCYTES % 6.9 % (4.4-11.3); NEUTROPHILS # (AUTO) 3.3 (2.1-6.9); NEUTROPHILS % 75.9 % (38.7-80.0); PLATELET COUNT 72 x10e3/uL (140-360); RED BLOOD COUNT 3.06 x10e6/uL (4.3-5.7)
[2021-02-15 06:17] LABS: ALBUMIN 2.7 g/dL (3.5-5.0); ALBUMIN/GLOBULIN RATIO 1.3 (0.8-2.0); ANION GAP 10.1 mmol/L (8-16); CALCIUM 7.1 mg/dL (8.4-10.2); CREATININE, SERUM 0.57 mg/dL (0.72-1.25); POTASSIUM 3.1 mmol/L (3.5-5.1)
[2021-02-15 06:24] LABS: INR 1.33; PROTHROMBIN TIME 16.7 seconds (11.9-14.5)
[2021-02-15 06:33] LABS: PARTIAL THROMBOPLASTIN TIME 32.2 seconds (23.8-35.5)
[2021-02-15] MEDS: CEFTRIAXONE 1 GM in SODIUM CHLORIDE 0.9% 50ML 50 ML IV SCH (09:17)
[2021-02-15] MEDS ORDERED: POTASSIUM CHLORIDE 20MEQ/100ML 200 ML IV ONE (09:30)
[2021-02-15] MEDS ORDERED: SODIUM CHLORIDE 0.45% 1,000 ML IV ONE (09:30)
[2021-02-15] MEDS: THIAMINE HCL 100 MG TAB PO SCH (09:55)
[2021-02-15] MEDS: PROPRANOLOL HCL 10 MG TAB PO SCH ×2 (09:55→17:23)
[2021-02-15 14:15] LABS: BASOPHILS % 0.7 % (0.0-1.0); EOSINOPHILS # (AUTO) 0.1 (0.0-0.4); EOSINOPHILS % 3.2 % (0.0-6.0); HEMATOCRIT 27.4 % (38.2-49.6); HEMOGLOBIN 8.8 g/dL (14.0-18.0); LYMPHOCYTES # (AUTO) 0.9 (1.0-3.2); LYMPHOCYTES % 20.9 % (18.0-39.1); MEAN CORPUSCULAR HEMOGLOBIN 30.4 pg (28-32); MEAN CORPUSCULAR HGB CONC 32.1 g/dL (31-35); MEAN CORPUSCULAR VOLUME 94.8 fL (81-99); MONOCYTES # (AUTO) 0.3 (0.2-0.8); MONOCYTES % 6.3 % (4.4-11.3); NEUTROPHILS % 68.4 % (38.7-80.0); PLATELET COUNT 68 x10e3/uL (140-360); RED BLOOD COUNT 2.89 x10e6/uL (4.3-5.7); RED CELL DISTRIBUTION WIDTH 16.3 % (11.7-14.4)
[2021-02-15] MEDS ORDERED: PHYTONADIONE 10MG/ML 20 MG in SODIUM CHLORIDE 0.9% 100 ML IV ONE (18:00)
[2021-02-15] MEDS ORDERED: PHYTONADIONE 10MG/ML 20 MG in SODIUM CHLORIDE 0.9% 100 ML SC ONE (18:00)
[2021-02-15] MEDS ORDERED: PHYTONADIONE 10 MG/ML AMP IV SCH (20:00)
[2021-02-16] VITALS (10 sets, daily range): BP systolic 110–146; BP diastolic 60–80
[2021-02-16] MEDS ORDERED: SODIUM CHLORIDE 0.9% 250ML 250 ML ONE (00:34)
[2021-02-16] MEDS: Pantoprazole IV 40 MG in SODIUM CHLORIDE 0.9% 50ML 50 ML IV SCH ×5 (01:07→21:19)
[2021-02-16 06:16] LABS: BASOPHILS % 0.4 % (0.0-1.0); EOSINOPHILS # (AUTO) 0.2 (0.0-0.4); EOSINOPHILS % 3.3 % (0.0-6.0); HEMATOCRIT 26.8 % (38.2-49.6); HEMOGLOBIN 8.6 g/dL (14.0-18.0); LYMPHOCYTES # (AUTO) 1.1 (1.0-3.2); LYMPHOCYTES % 23.6 % (18.0-39.1); MEAN CORPUSCULAR HEMOGLOBIN 30.6 pg (28-32); MEAN CORPUSCULAR HGB CONC 32.1 g/dL (31-35); MEAN CORPUSCULAR VOLUME 95.4 fL (81-99); MONOCYTES # (AUTO) 0.4 (0.2-0.8); MONOCYTES % 8.9 % (4.4-11.3); NEUTROPHILS # (AUTO) 2.9 (2.1-6.9); NEUTROPHILS % 63.4 % (38.7-80.0); PLATELET COUNT 77 x10e3/uL (140-360); RED BLOOD COUNT 2.81 x10e6/uL (4.3-5.7); RED CELL DISTRIBUTION WIDTH 16.2 % (11.7-14.4)
[2021-02-16 06:26] LABS: INR 1.13; PROTHROMBIN TIME 14.7 seconds (11.9-14.5)
[2021-02-16 06:46] LABS: ALBUMIN 2.7 g/dL (3.5-5.0); ALBUMIN/GLOBULIN RATIO 1.1 (0.8-2.0); ANION GAP 8.2 mmol/L (8-16); CALCIUM 7.4 mg/dL (8.4-10.2); CREATININE, SERUM 0.53 mg/dL (0.72-1.25); POTASSIUM 3.2 mmol/L (3.5-5.1)
[2021-02-16] MEDS: OCTREOTIDE ACETATE 500 MCG in SODIUM CHLORIDE 0.9% 250ML 249 ML IV SCH ×2 (07:15→16:00)
[2021-02-16] MEDS ORDERED: POTASSIUM CHLORIDE 10MEQ EA PO ONE (07:45)
[2021-02-16] MEDS: THIAMINE HCL 100 MG TAB PO SCH (09:00)
[2021-02-16] MEDS ORDERED: POTASSIUM CHLORIDE 20 MEQ TAB CR PO ONE (09:00)
[2021-02-16] MEDS: RIFAXIMIN 550 MG TABLET PO SCH ×2 (09:00→16:40)
[2021-02-16] MEDS ORDERED: CEFTRIAXONE 1 GM in SODIUM CHLORIDE 0.9% 50ML 50 ML IV SCH (09:00)
[2021-02-16] MEDS: PROPRANOLOL HCL 10 MG TAB PO SCH ×2 (09:00→16:40)
[2021-02-16] MEDS ORDERED: ALBUMIN 25% 12.5GM 50ML 150 ML IV ONE (12:00)
[2021-02-16 13:39] LABS: BASOPHILS % 0.7 % (0.0-1.0); EOSINOPHILS # (AUTO) 0.1 (0.0-0.4); EOSINOPHILS % 2.4 % (0.0-6.0); HEMATOCRIT 26.9 % (38.2-49.6); HEMOGLOBIN 8.6 g/dL (14.0-18.0); LYMPHOCYTES % 21.1 % (18.0-39.1); MEAN CORPUSCULAR HEMOGLOBIN 30.7 pg (28-32); MEAN CORPUSCULAR VOLUME 96.1 fL (81-99); MONOCYTES # (AUTO) 0.5 (0.2-0.8); NEUTROPHILS % 65.6 % (38.7-80.0); PLATELET COUNT 69 x10e3/uL (140-360); RED CELL DISTRIBUTION WIDTH 16.2 % (11.7-14.4)
[2021-02-16 14:45] LABS: BODY FLUID APPEARANCE CLOUDY; BODY FLUID COLOR YELLOW; BODY FLUID TYPE PERITONEAL; RBC,BODY FLUID < 2000 cells/uL; WBC,BODY FLUID 92 cells/uL
[2021-02-16 16:39] LABS: LYMPHOCYTES,BODY FLUID 35 %; NEUTROPHILS,BODY FLUID 6 %
[2021-02-16 16:40] LABS: OTHER CELLS,BODY FLUID 59 %
[2021-02-16 19:45] LABS: BASOPHILS % 0.4 % (0.0-1.0); EOSINOPHILS # (AUTO) 0.1 (0.0-0.4); EOSINOPHILS % 2.4 % (0.0-6.0); HEMATOCRIT 29.5 % (38.2-49.6); HEMOGLOBIN 9.4 g/dL (14.0-18.0); LYMPHOCYTES # (AUTO) 1.1 (1.0-3.2); LYMPHOCYTES % 22.3 % (18.0-39.1); MEAN CORPUSCULAR HEMOGLOBIN 30.6 pg (28-32); MEAN CORPUSCULAR HGB CONC 31.9 g/dL (31-35); MEAN CORPUSCULAR VOLUME 96.1 fL (81-99); MONOCYTES # (AUTO) 0.5 (0.2-0.8); MONOCYTES % 10.4 % (4.4-11.3); NEUTROPHILS # (AUTO) 3.2 (2.1-6.9); NEUTROPHILS % 64.3 % (38.7-80.0); PLATELET COUNT 84 x10e3/uL (140-360); RED BLOOD COUNT 3.07 x10e6/uL (4.3-5.7); RED CELL DISTRIBUTION WIDTH 16.4 % (11.7-14.4)
[2021-02-16] MEDS: CEFTRIAXONE 1 GM in SODIUM CHLORIDE 0.9% 50ML 50 ML IV SCH (21:19)
[2021-02-17] VITALS (8 sets, daily range): BP systolic 107–129; BP diastolic 52–71
[2021-02-17] MEDS: OCTREOTIDE ACETATE 500 MCG in SODIUM CHLORIDE 0.9% 250ML 249 ML IV SCH ×3 (00:40→22:55)
[2021-02-17] MEDS: Pantoprazole IV 40 MG in SODIUM CHLORIDE 0.9% 50ML 50 ML IV SCH ×5 (01:05→21:00)
[2021-02-17 04:54] LABS: BASOPHILS % 0.6 % (0.0-1.0); EOSINOPHILS # (AUTO) 0.2 (0.0-0.4); EOSINOPHILS % 3.4 % (0.0-6.0); HEMATOCRIT 31.1 % (38.2-49.6); LYMPHOCYTES # (AUTO) 1.1 (1.0-3.2); LYMPHOCYTES % 22.9 % (18.0-39.1); MEAN CORPUSCULAR HEMOGLOBIN 30.6 pg (28-32); MEAN CORPUSCULAR HGB CONC 32.2 g/dL (31-35); MEAN CORPUSCULAR VOLUME 95.1 fL (81-99); MONOCYTES # (AUTO) 0.6 (0.2-0.8); MONOCYTES % 11.3 % (4.4-11.3); NEUTROPHILS # (AUTO) 3.1 (2.1-6.9); NEUTROPHILS % 61.4 % (38.7-80.0); PLATELET COUNT 82 x10e3/uL (140-360); RED BLOOD COUNT 3.27 x10e6/uL (4.3-5.7); RED CELL DISTRIBUTION WIDTH 16.4 % (11.7-14.4)
[2021-02-17 05:23] LABS: INR 1.32; PROTHROMBIN TIME 16.6 seconds (11.9-14.5)
[2021-02-17 05:26] LABS: ANION GAP 9.6 mmol/L (8-16); CALCIUM 7.6 mg/dL (8.4-10.2); CREATININE, SERUM 0.52 mg/dL (0.72-1.25); MAGNESIUM 1.7 MG/DL (1.3-2.1); PHOSPHORUS 1.9 MG/DL (2.3-4.7); POTASSIUM 3.6 mmol/L (3.5-5.1)
[2021-02-17] MEDS: CEFTRIAXONE 1 GM in SODIUM CHLORIDE 0.9% 50ML 50 ML IV SCH ×2 (08:22→21:00)
[2021-02-17] MEDS: THIAMINE HCL 100 MG TAB PO SCH (08:22)
[2021-02-17] MEDS: RIFAXIMIN 550 MG TABLET PO SCH ×2 (08:22→16:04)
[2021-02-17] MEDS ORDERED: PROPRANOLOL HCL 10 MG TAB PO SCH (09:00)
[2021-02-17] MEDS ORDERED: POTASSIUM PHOSPHATE 15 MM in SODIUM CHLORIDE 0.9% 250ML 250 ML IV ONE (10:45)
[2021-02-17 11:45] LABS: BASOPHILS % 0.6 % (0.0-1.0); EOSINOPHILS # (AUTO) 0.2 (0.0-0.4); EOSINOPHILS % 3.9 % (0.0-6.0); HEMATOCRIT 29.7 % (38.2-49.6); HEMOGLOBIN 9.5 g/dL (14.0-18.0); LYMPHOCYTES # (AUTO) 1.4 (1.0-3.2); LYMPHOCYTES % 27.8 % (18.0-39.1); MEAN CORPUSCULAR HEMOGLOBIN 30.4 pg (28-32); MEAN CORPUSCULAR VOLUME 95.2 fL (81-99); MONOCYTES # (AUTO) 0.6 (0.2-0.8); MONOCYTES % 11.4 % (4.4-11.3); NEUTROPHILS # (AUTO) 2.8 (2.1-6.9); NEUTROPHILS % 56.1 % (38.7-80.0); PLATELET COUNT 88 x10e3/uL (140-360); RED BLOOD COUNT 3.12 x10e6/uL (4.3-5.7); RED CELL DISTRIBUTION WIDTH 16.8 % (11.7-14.4)
[2021-02-17] MEDS: PROPRANOLOL HCL 40 MG TAB PO SCH (16:02)
[2021-02-17] MEDS ORDERED: LIDOCAINE HCL 2% LOCAL INJ 5 ML SDV VIAL INJ ONE (17:37)
[2021-02-17] MEDS ORDERED: PROPOFOL IV EMULSION 10 MG/ML 20 ML VIAL ONE (17:37)
[2021-02-17 18:07] LABS: BASOPHILS % 0.8 % (0.0-1.0); EOSINOPHILS # (AUTO) 0.2 (0.0-0.4); EOSINOPHILS % 3.1 % (0.0-6.0); HEMATOCRIT 32.4 % (38.2-49.6); HEMOGLOBIN 10.4 g/dL (14.0-18.0); LYMPHOCYTES # (AUTO) 1.3 (1.0-3.2); LYMPHOCYTES % 25.2 % (18.0-39.1); MEAN CORPUSCULAR HGB CONC 32.1 g/dL (31-35); MEAN CORPUSCULAR VOLUME 96.4 fL (81-99); MONOCYTES # (AUTO) 0.5 (0.2-0.8); MONOCYTES % 10.1 % (4.4-11.3); NEUTROPHILS # (AUTO) 3.1 (2.1-6.9); NEUTROPHILS % 60.4 % (38.7-80.0); PLATELET COUNT 90 x10e3/uL (140-360); RED BLOOD COUNT 3.36 x10e6/uL (4.3-5.7); RED CELL DISTRIBUTION WIDTH 16.8 % (11.7-14.4)
[2021-02-18] VITALS (14 sets, daily range): BP systolic 114–126; BP diastolic 63–81
[2021-02-18] MEDS: Pantoprazole IV 40 MG in SODIUM CHLORIDE 0.9% 50ML 50 ML IV SCH ×5 (02:07→22:05)
[2021-02-18 06:29] LABS: BASOPHILS % 0.6 % (0.0-1.0); EOSINOPHILS # (AUTO) 0.2 (0.0-0.4); EOSINOPHILS % 3.9 % (0.0-6.0); HEMATOCRIT 30.9 % (38.2-49.6); LYMPHOCYTES # (AUTO) 1.3 (1.0-3.2); LYMPHOCYTES % 27.9 % (18.0-39.1); MEAN CORPUSCULAR HEMOGLOBIN 30.9 pg (28-32); MEAN CORPUSCULAR HGB CONC 32.4 g/dL (31-35); MEAN CORPUSCULAR VOLUME 95.4 fL (81-99); MONOCYTES # (AUTO) 0.6 (0.2-0.8); MONOCYTES % 13.9 % (4.4-11.3); NEUTROPHILS # (AUTO) 2.5 (2.1-6.9); NEUTROPHILS % 53.5 % (38.7-80.0); PLATELET COUNT 93 x10e3/uL (140-360); RED BLOOD COUNT 3.24 x10e6/uL (4.3-5.7); RED CELL DISTRIBUTION WIDTH 16.5 % (11.7-14.4)
[2021-02-18 06:50] LABS: ANION GAP 8.5 mmol/L (8-16); CALCIUM 7.3 mg/dL (8.4-10.2); CREATININE, SERUM 0.57 mg/dL (0.72-1.25); MAGNESIUM 1.6 MG/DL (1.3-2.1); PHOSPHORUS 2.4 MG/DL (2.3-4.7); POTASSIUM 3.5 mmol/L (3.5-5.1)
[2021-02-18] MEDS: RIFAXIMIN 550 MG TABLET PO SCH ×2 (07:44→16:45)
[2021-02-18] MEDS: THIAMINE HCL 100 MG TAB PO SCH (07:44)
[2021-02-18] MEDS: OCTREOTIDE ACETATE 500 MCG in SODIUM CHLORIDE 0.9% 250ML 249 ML IV SCH ×2 (07:52→22:00)
[2021-02-18] MEDS: CEFTRIAXONE 1 GM in SODIUM CHLORIDE 0.9% 50ML 50 ML IV SCH ×2 (08:40→22:05)
[2021-02-18] MEDS: PROPRANOLOL HCL 40 MG TAB PO SCH ×2 (08:41→16:45)
[2021-02-18] MEDS ORDERED: MAGNESIUM SULFATE 2GM/50ML 50 ML IV ONE (11:00)
[2021-02-18] MEDS ORDERED: POTASSIUM CHLORIDE 20 MEQ TAB CR PO ONE (13:30)
[2021-02-19] VITALS: BP 145/79
[2021-02-19 00:35] LABS: % IRON SATURATION 13 % (15-50); IRON 28 ug/dL (65-175); TOTAL IRON BINDING CAPACITY 211 ug/dL (261-478); TRANSFERRIN 151 mg/dL (174-364)
[2021-02-19] MEDS: Pantoprazole IV 40 MG in SODIUM CHLORIDE 0.9% 50ML 50 ML IV SCH ×5 (03:03→20:20)
[2021-02-19 05:09] LABS: BASOPHILS % 0.8 % (0.0-1.0); EOSINOPHILS # (AUTO) 0.2 (0.0-0.4); EOSINOPHILS % 3.8 % (0.0-6.0); HEMATOCRIT 31.6 % (38.2-49.6); HEMOGLOBIN 10.3 g/dL (14.0-18.0); LYMPHOCYTES # (AUTO) 1.3 (1.0-3.2); LYMPHOCYTES % 26.2 % (18.0-39.1); MEAN CORPUSCULAR HEMOGLOBIN 30.9 pg (28-32); MEAN CORPUSCULAR HGB CONC 32.6 g/dL (31-35); MEAN CORPUSCULAR VOLUME 94.9 fL (81-99); MONOCYTES # (AUTO) 0.7 (0.2-0.8); MONOCYTES % 14.3 % (4.4-11.3); NEUTROPHILS # (AUTO) 2.6 (2.1-6.9); NEUTROPHILS % 54.5 % (38.7-80.0); PLATELET COUNT 104 x10e3/uL (140-360); RED BLOOD COUNT 3.33 x10e6/uL (4.3-5.7); RED CELL DISTRIBUTION WIDTH 16.4 % (11.7-14.4)
[2021-02-19 05:34] LABS: ALBUMIN 2.7 g/dL (3.5-5.0); CALCIUM 7.5 mg/dL (8.4-10.2); CREATININE, SERUM 0.56 mg/dL (0.72-1.25)
[2021-02-19 08:07] VITALS: BP 123/64
[2021-02-19 08:23] VITALS: BP 123/64
[2021-02-19] MEDS: CEFTRIAXONE 1 GM in SODIUM CHLORIDE 0.9% 50ML 50 ML IV SCH ×2 (09:00→22:19)
[2021-02-19] MEDS: THIAMINE HCL 100 MG TAB PO SCH (09:05)
[2021-02-19] MEDS: RIFAXIMIN 550 MG TABLET PO SCH ×2 (09:05→16:36)
[2021-02-19] MEDS: PROPRANOLOL HCL 40 MG TAB PO SCH ×2 (09:06→16:38)
[2021-02-19] MEDS: OCTREOTIDE ACETATE 500 MCG in SODIUM CHLORIDE 0.9% 250ML 249 ML IV SCH ×2 (09:06→13:30)
[2021-02-19] MEDS ORDERED: MAGNESIUM SULFATE 2GM/50ML 50 ML IV ONE (10:00)
[2021-02-19 11:57] VITALS: BP 108/62
[2021-02-19 16:49] VITALS: BP 96/64
[2021-02-19 20:00] VITALS: BP 115/67
[2021-02-20] VITALS (8 sets, daily range): BP systolic 95–131; BP diastolic 56–78
[2021-02-20] MEDS ORDERED: LACTULOSE SYRUP 20 GM/30 ML UDC PO STA (00:50)
[2021-02-20 05:04] LABS: BASOPHILS % 0.6 % (0.0-1.0); EOSINOPHILS # (AUTO) 0.2 (0.0-0.4); EOSINOPHILS % 2.6 % (0.0-6.0); HEMATOCRIT 30.8 % (38.2-49.6); LYMPHOCYTES # (AUTO) 1.4 (1.0-3.2); LYMPHOCYTES % 22.3 % (18.0-39.1); MEAN CORPUSCULAR HGB CONC 32.5 g/dL (31-35); MEAN CORPUSCULAR VOLUME 95.4 fL (81-99); MONOCYTES # (AUTO) 0.9 (0.2-0.8); MONOCYTES % 13.8 % (4.4-11.3); NEUTROPHILS # (AUTO) 3.8 (2.1-6.9); NEUTROPHILS % 60.2 % (38.7-80.0); PLATELET COUNT 106 x10e3/uL (140-360); RED BLOOD COUNT 3.23 x10e6/uL (4.3-5.7); RED CELL DISTRIBUTION WIDTH 16.5 % (11.7-14.4)
[2021-02-20 05:19] LABS: INR 1.32; PROTHROMBIN TIME 16.6 seconds (11.9-14.5)
[2021-02-20 05:31] LABS: ALBUMIN 2.7 g/dL (3.5-5.0); ALBUMIN/GLOBULIN RATIO 1.1 (0.8-2.0); CALCIUM 7.4 mg/dL (8.4-10.2); CREATININE, SERUM 0.57 mg/dL (0.72-1.25)
[2021-02-20] MEDS: LACTULOSE SYRUP 20 GM/30 ML UDC PO SCH ×3 (06:56→22:00)
[2021-02-20] MEDS: SPIRONOLACTONE 25 MG TAB PO SCH ×2 (10:17→19:15)
[2021-02-20] MEDS: CEFTRIAXONE 1 GM in SODIUM CHLORIDE 0.9% 50ML 50 ML IV SCH ×2 (10:17→21:11)
[2021-02-20] MEDS: PROPRANOLOL HCL 40 MG TAB PO SCH ×2 (10:17→17:00)
[2021-02-20] MEDS: IRON SUCROSE 100 MG in SODIUM CHLORIDE 0.9% 100 ML 100 ML IV SCH (10:17)
[2021-02-20] MEDS: PANTOPRAZOLE SOD 40 MG TABEC PO SCH ×2 (10:18→21:11)
[2021-02-20] MEDS: THIAMINE HCL 100 MG TAB PO SCH (10:18)
[2021-02-20] MEDS: FUROSEMIDE 40 MG TAB PO SCH (10:18)
[2021-02-20] MEDS: RIFAXIMIN 550 MG TABLET PO SCH ×2 (10:18→19:17)
[2021-02-20] MEDS ORDERED: ALBUMIN 25% 12.5GM 50ML 100 ML IV ONE (12:07)
[2021-02-20 14:11] LABS: BODY FLUID APPEARANCE CLEAR; BODY FLUID COLOR YELLOW; BODY FLUID TYPE PLEURAL
[2021-02-20 14:12] LABS: WBC,BODY FLUID 90 cells/uL
[2021-02-20 14:26] LABS: RBC,BODY FLUID < 2000 cells/uL
[2021-02-20 15:49] LABS: LYMPHOCYTES,BODY FLUID 38 %; MONO/MACROPHG,BODY FLUID 55 %; NEUTROPHILS,BODY FLUID 7 %
[2021-02-21 00:04] VITALS: BP 108/53
[2021-02-21 04:00] VITALS: BP 117/69
[2021-02-21 06:07] LABS: BASOPHILS % 0.6 % (0.0-1.0); EOSINOPHILS # (AUTO) 0.1 (0.0-0.4); EOSINOPHILS % 2.2 % (0.0-6.0); HEMATOCRIT 30.6 % (38.2-49.6); HEMOGLOBIN 9.9 g/dL (14.0-18.0); LYMPHOCYTES # (AUTO) 1.1 (1.0-3.2); LYMPHOCYTES % 21.5 % (18.0-39.1); MEAN CORPUSCULAR HEMOGLOBIN 30.6 pg (28-32); MEAN CORPUSCULAR HGB CONC 32.4 g/dL (31-35); MEAN CORPUSCULAR VOLUME 94.4 fL (81-99); MONOCYTES # (AUTO) 0.7 (0.2-0.8); MONOCYTES % 13.9 % (4.4-11.3); NEUTROPHILS # (AUTO) 3.1 (2.1-6.9); NEUTROPHILS % 61.4 % (38.7-80.0); PLATELET COUNT 110 x10e3/uL (140-360); RED BLOOD COUNT 3.24 x10e6/uL (4.3-5.7); RED CELL DISTRIBUTION WIDTH 16.1 % (11.7-14.4)
[2021-02-21 06:26] LABS: ALBUMIN/GLOBULIN RATIO 1.2 (0.8-2.0); ANION GAP 10.6 mmol/L (8-16); CALCIUM 7.8 mg/dL (8.4-10.2); CREATININE, SERUM 0.57 mg/dL (0.72-1.25); POTASSIUM 3.6 mmol/L (3.5-5.1)
[2021-02-21 08:06] VITALS: BP 133/70
[2021-02-21 09:00] VITALS: BP 133/70
[2021-02-21] MEDS: PANTOPRAZOLE SOD 40 MG TABEC PO SCH (09:50)
[2021-02-21] MEDS: PROPRANOLOL HCL 40 MG TAB PO SCH ×2 (09:50→16:56)
[2021-02-21] MEDS: CEFTRIAXONE 1 GM in SODIUM CHLORIDE 0.9% 50ML 50 ML IV SCH (09:50)
[2021-02-21] MEDS: RIFAXIMIN 550 MG TABLET PO SCH ×2 (09:50→16:57)
[2021-02-21] MEDS: FUROSEMIDE 40 MG TAB PO SCH (09:50)
[2021-02-21] MEDS: SPIRONOLACTONE 25 MG TAB PO SCH ×2 (09:50→16:56)
[2021-02-21] MEDS: IRON SUCROSE 100 MG in SODIUM CHLORIDE 0.9% 100 ML 100 ML IV SCH (09:50)
[2021-02-21] MEDS: THIAMINE HCL 100 MG TAB PO SCH (09:50)
[2021-02-21 11:25] VITALS: BP 118/59
[2021-02-21] MEDS: LACTULOSE SYRUP 20 GM/30 ML UDC PO SCH (14:00)
[2021-02-21] MEDS ORDERED: CALCIUM GLUCONATE 10% INJ 9.3 MEQ in SODIUM CHLORIDE 0.9% 100 ML 100 ML IV ONE (15:15)
[2021-02-21 15:25] VITALS: BP 90/48
[2021-02-21] MEDS ORDERED: XIFAXAN550 MG PO (15:45)
[2021-02-21] MEDS ORDERED: PROPRANOLOL HCL40 MG PO (15:45)
[2021-02-21] MEDS ORDERED: FUROSEMIDE40 MG PO (15:46)
== END 2021-02-21 18:45 | disposition home or self-care (01) | DRG 432 ==
LOC: ER 20:50 → ERHOLD 02-14 03:17 → ICU 02-14 18:08 → MED/SURG2 02-15 16:08 → MED/SURG 02-16 21:29
PROVIDERS: ADMIT Internal Medicine; ATTEND Internal Medicine
PROC: 30233N1 Transfusion of Nonautologous Red Blood Cells into Peripheral Vein, Percutaneous Approach (ICD-10-PCS; 2021-02-13)
PROC: 30233K1 Transfusion of Nonautologous Frozen Plasma into Peripheral Vein, Percutaneous Approach (ICD-10-PCS; 2021-02-14)
PROC: 0DJ08ZZ Inspection of Upper Intestinal Tract, Via Natural or Artificial Opening Endoscopic (ICD-10-PCS; 2021-02-14)
PROC: 02HV33Z Insertion of Infusion Device into Superior Vena Cava, Percutaneous Approach (ICD-10-PCS; 2021-02-14)
PROC: 30233L1 Transfusion of Nonautologous Fresh Plasma into Peripheral Vein, Percutaneous Approach (ICD-10-PCS; principal; 2021-02-14 17:34)
PROC: 0W9G3ZZ Drainage of Peritoneal Cavity, Percutaneous Approach (ICD-10-PCS; 2021-02-16)
PROC: 06L38CZ Occlusion of Esophageal Vein with Extraluminal Device, Via Natural or Artificial Opening Endoscopic (ICD-10-PCS; 2021-02-17)
PROC: 0W9G3ZZ Drainage of Peritoneal Cavity, Percutaneous Approach (ICD-10-PCS; 2021-02-20)
DX: K70.31 Alcoholic cirrhosis of liver with ascites (principal); I85.11 Secondary esophageal varices with bleeding; R57.8 Other shock; K65.2 Spontaneous bacterial peritonitis; K72.00 Acute and subacute hepatic failure without coma; D62 Acute posthemorrhagic anemia; K76.6 Portal hypertension; E87.0 Hyperosmolality and hypernatremia; I86.4 Gastric varices; F10.10 Alcohol abuse, uncomplicated; E78.00 Pure hypercholesterolemia, unspecified; Z20.822 Contact with and (suspected) exposure to COVID-19; Y90.0 Blood alcohol level of less than 20 mg/100 ml; K31.89 Other diseases of stomach and duodenum; I25.10 Atherosclerotic heart disease of native coronary artery without angina pectoris; I10 Essential (primary) hypertension; Z82.49 Family history of ischemic heart disease and other diseases of the circulatory system; Z72.0 Tobacco use; E87.6 Hypokalemia; E83.39 Other disorders of phosphorus metabolism; E83.42 Hypomagnesemia; D69.6 Thrombocytopenia, unspecified
CPT/HCPCS: 36415; 36569; 43235; 43255; 49083; 71045; 74018; 74174; 80048; 80053; 80320; 81001; 82140; 82550; 82553; 82607; 82746; 82948; 83540; 83605; 83735; 84100; 84157; 84466; 84484; 85014; 85018; 85025; 85045; 85610; 85730; 86850; 86900; 86920; 87040; 87070; 87205; 88112; 88305; 89051; 93005; 96366; 97139; 99285; J0171; J0696; J1756; J2001; J2060; J2353; J2405; J3411; J3430; J3475; J3480; J7030; J7040; J7050; P9016; P9017; Q9967; U0002

== ENCOUNTER → 2021-04-28 | Outpatient (CLI) | payer MEDICARE ==
[~2021-04-28] MED LIST changes: +ALBUMIN 25% 12.5GM 50ML 200 ML IV ONE; +FUROSEMIDE40 MG PO; +PROPRANOLOL HCL40 MG PO; +XIFAXAN550 MG PO
[2021-04-28 11:35] LABS: HEMOGLOBIN 12.8 g/dL (14.0-18.0)
[2021-04-28 11:48] LABS: INR 1.19; PARTIAL THROMBOPLASTIN TIME 28.2 seconds (23.8-35.5); PROTHROMBIN TIME 15.6 seconds (11.9-14.5)
[2021-04-28 14:22] LABS: BODY FLUID APPEARANCE CLOUDY; BODY FLUID COLOR YELLOW; BODY FLUID TYPE PERITONEAL
[2021-04-28 14:30] LABS: RBC,BODY FLUID < 2000 cells/uL; WBC,BODY FLUID 180 cells/uL
[2021-04-28 15:57] LABS: LYMPHOCYTES,BODY FLUID 85 %; MONO/MACROPHG,BODY FLUID 14 %; NEUTROPHILS,BODY FLUID 1 %
== END ==
LOC: US 11:08
PROVIDERS: ATTEND Internal Medicine Gastroenterology
DX: K70.31 Alcoholic cirrhosis of liver with ascites (principal)
CPT/HCPCS: 36415; 49083; 85014; 85049; 85610; 85730; 87070; 87205; 88112; 88305; 89051; C1729

== ENCOUNTER 2021-05-07 20:06 | Inpatient (IN) | payer MEDICARE ==
[~2021-05-07] VITALS: Ht 162.6 cm; Wt 62.6 kg
[~2021-05-07 20:06] MED LIST changes: -ALBUMIN 25% 12.5GM 50ML 200 ML IV ONE
[2021-05-07] MEDS ORDERED: SODIUM CHLORIDE 0.9% 1000ML 1,000 ML IV ONE (20:30)
[2021-05-07 20:33] LABS: BASOPHILS % 0.2 % (0.0-1.0); EOSINOPHILS % 0.4 % (0.0-6.0); LYMPHOCYTES # (AUTO) 1.4 (1.0-3.2); MEAN CORPUSCULAR HEMOGLOBIN 30.6 pg (28-32); MEAN CORPUSCULAR HGB CONC 29.9 g/dL (31-35); MEAN CORPUSCULAR VOLUME 102.1 fL (81-99); MONOCYTES # (AUTO) 0.8 (0.2-0.8); MONOCYTES % 8.3 % (4.4-11.3); NEUTROPHILS % 75.3 % (38.7-80.0); PLATELET COUNT 143 x10e3/uL (140-360); RED BLOOD COUNT 1.44 x10e6/uL (4.3-5.7); RED CELL DISTRIBUTION WIDTH 15.3 % (11.7-14.4)
[2021-05-07 20:36] LABS: HEMATOCRIT 14.7 % (38.2-49.6); HEMOGLOBIN 4.4 g/dL (14.0-18.0)
[2021-05-07] MEDS ORDERED: SODIUM CHLORIDE 0.9% 1000ML 1,000 ML ONE (20:41)
[2021-05-07] MEDS ORDERED: SODIUM CHLORIDE 0.9% 250ML 250 ML IV ONE (20:45)
[2021-05-07 20:47] LABS: INR 1.41; PROTHROMBIN TIME 17.8 seconds (11.9-14.5)
[2021-05-07 20:54] LABS: ALBUMIN/GLOBULIN RATIO 1.3 (0.8-2.0); ANION GAP 25.4 mmol/L (8-16); CREATININE, SERUM 0.8 mg/dL (0.72-1.25); POTASSIUM 3.4 mmol/L (3.5-5.1)
[2021-05-07 21:00] LABS: CREATINE KINASE MB 2.6 ng/mL (0-5.0)
[2021-05-07] MEDS ORDERED: ONDANSETRON HCL INJ 2MG/ML 2ML 2 MG/ML VIAL IV STA (21:14)
[2021-05-07] MEDS: CEFEPIME 1 GM in SODIUM CHLORIDE 0.9% 50ML 50 ML IV SCH (21:20)
[2021-05-07] MEDS ORDERED: MULTIVITAMINS- 12 INJECTION 10 ML, FOLIC ACID MDV 1 MG, THIAMINE HCL INJ 100 MG in SODI... IV ONE (22:15)
[2021-05-08] VITALS (7 sets, daily range): BP systolic 95–122; BP diastolic 64–69
[2021-05-08 03:31] LABS: CLARITY,URINE CLEAR (CLEAR); COLOR,URINE YELLOW (YELLOW); KETONES,URINE 1+ (NEGATIVE); LEUKOCYTE ESTERASE ,URINE NEGATIVE (NEGATIVE); NITRITE,URINE NEGATIVE (NEGATIVE); PROTEIN,URINE DIPSTICK NEGATIVE (NEGATIVE); URINE UROBILINOGEN 0.2 mg/dL (0.2 - 1)
[2021-05-08 03:41] LABS: BACTERIA,URINE FEW /HPF; EPITHELIAL CELLS,URINE RARE /LPF; RBC,URINE 0-5 /HPF (0-5); WBC,URINE (MAN) 0-5 /HPF (0-5)
[2021-05-08] MEDS: OCTREOTIDE ACETATE 500 MCG in SODIUM CHLORIDE 0.9% 250ML 250 ML IV SCH ×3 (04:13→19:05)
[2021-05-08] MEDS: CEFEPIME 1 GM in SODIUM CHLORIDE 0.9% 50ML 50 ML IV SCH ×3 (06:25→23:25)
[2021-05-08 06:29] LABS: BASOPHILS % 0.5 % (0.0-1.0); EOSINOPHILS % 0.2 % (0.0-6.0); HEMATOCRIT 21.5 % (38.2-49.6); HEMOGLOBIN 7.1 g/dL (14.0-18.0); LYMPHOCYTES % 14.6 % (18.0-39.1); MEAN CORPUSCULAR HEMOGLOBIN 30.3 pg (28-32); MEAN CORPUSCULAR VOLUME 91.9 fL (81-99); MONOCYTES # (AUTO) 0.7 (0.2-0.8); MONOCYTES % 10.8 % (4.4-11.3); NEUTROPHILS # (AUTO) 4.8 (2.1-6.9); NEUTROPHILS % 73.1 % (38.7-80.0); PLATELET COUNT 102 x10e3/uL (140-360); RED BLOOD COUNT 2.34 x10e6/uL (4.3-5.7); RED CELL DISTRIBUTION WIDTH 15.1 % (11.7-14.4)
[2021-05-08 06:39] LABS: ALBUMIN 2.5 g/dL (3.5-5.0); ALBUMIN/GLOBULIN RATIO 1.2 (0.8-2.0); ANION GAP 8.5 mmol/L (8-16); CALCIUM 7.1 mg/dL (8.4-10.2); CREATININE, SERUM 0.57 mg/dL (0.72-1.25); POTASSIUM 3.5 mmol/L (3.5-5.1)
[2021-05-08] MEDS ORDERED: PHYTONADIONE 10MG/ML 20 MG in SODIUM CHLORIDE 0.9% 50ML 50 ML IV ONE (09:00)
[2021-05-08] MEDS: RIFAXIMIN 550 MG TABLET PO SCH ×2 (09:00→16:42)
[2021-05-08] MEDS: FOLIC ACID 1 MG TAB PO SCH (09:00)
[2021-05-08] MEDS ORDERED: PHYTONADIONE 10 MG/ML AMP IV ONE (09:00)
[2021-05-08] MEDS ORDERED: THIAMINE HCL 100 MG TAB PO SCH (09:00)
[2021-05-08] MEDS ORDERED: PHYTONADIONE 10MG/ML 20 MG in SODIUM CHLORIDE 0.9% 50ML 50 ML SC ONE (09:00)
[2021-05-08] MEDS: PROPRANOLOL HCL 40 MG TAB PO SCH ×2 (09:00→16:42)
[2021-05-08] MEDS ORDERED: LACTULOSE20 GM/30 M PO (11:05)
[2021-05-08 12:00] LABS: HEMATOCRIT 23.1 % (38.2-49.6); HEMOGLOBIN 7.6 g/dL (14.0-18.0)
[2021-05-08] MEDS ORDERED: ALBUMIN 25% 12.5GM 50ML 100 ML IV ONE (12:51)
[2021-05-08] MEDS ORDERED: ALBUMIN 25% 12.5GM 50ML 50 ML IV ONE ×2 (13:14→13:34)
[2021-05-08] MEDS ORDERED: SODIUM CHLORIDE 0.9% 250ML 250 ML ONE ×2 (15:29→21:12)
[2021-05-08 15:32] LABS: BODY FLUID APPEARANCE CLOUDY; BODY FLUID COLOR YELLOW; BODY FLUID TYPE PERITONEAL
[2021-05-08 15:33] LABS: RBC,BODY FLUID 1000 cells/uL; WBC,BODY FLUID 67 cells/uL
[2021-05-08] MEDS: MULTIVITAMINS/MINERALS TAB PO SCH (16:42)
[2021-05-08] MEDS: LACTULOSE SYRUP 20 GM/30 ML UDC PO SCH (16:42)
[2021-05-08 18:02] LABS: HEMATOCRIT 20.3 % (38.2-49.6); HEMOGLOBIN 6.9 g/dL (14.0-18.0)
[2021-05-08 18:37] LABS: LYMPHOCYTES,BODY FLUID 8 %; MONO/MACROPHG,BODY FLUID 26 %; NEUTROPHILS,BODY FLUID 9 %; OTHER CELLS,BODY FLUID 57 %
[2021-05-08] MEDS ORDERED: SODIUM CHLORIDE 0.9% 250ML 250 ML IV ONE (18:40)
[2021-05-09] VITALS (8 sets, daily range): BP systolic 94–152; BP diastolic 62–98
[2021-05-09] MEDS ORDERED: SODIUM CHLORIDE 0.9% 250ML 250 ML ONE (02:41)
[2021-05-09] MEDS: FUROSEMIDE INJ 10 MG/ML 2 ML VIAL IV PRN ×2 (02:43→08:53)
[2021-05-09] MEDS: OCTREOTIDE ACETATE 500 MCG in SODIUM CHLORIDE 0.9% 250ML 250 ML IV SCH ×3 (04:45→21:46)
[2021-05-09] MEDS: CEFEPIME 1 GM in SODIUM CHLORIDE 0.9% 50ML 50 ML IV SCH ×3 (06:05→21:46)
[2021-05-09] MEDS: THIAMINE HCL INJ 100 MG/ML 2ML VIAL IV SCH (08:54)
[2021-05-09] MEDS: PROPRANOLOL HCL 40 MG TAB PO SCH (09:00)
[2021-05-09] MEDS: RIFAXIMIN 550 MG TABLET PO SCH ×2 (09:00→17:57)
[2021-05-09 12:27] LABS: BASOPHILS # (AUTO) 0.1 (0.0-0.1); BASOPHILS % 0.8 % (0.0-1.0); EOSINOPHILS # (AUTO) 0.1 (0.0-0.4); EOSINOPHILS % 1.3 % (0.0-6.0); HEMATOCRIT 35.5 % (38.2-49.6); HEMOGLOBIN 12.2 g/dL (14.0-18.0); LYMPHOCYTES # (AUTO) 1.1 (1.0-3.2); LYMPHOCYTES % 16.9 % (18.0-39.1); MEAN CORPUSCULAR HEMOGLOBIN 30.2 pg (28-32); MEAN CORPUSCULAR HGB CONC 34.4 g/dL (31-35); MEAN CORPUSCULAR VOLUME 87.9 fL (81-99); MONOCYTES # (AUTO) 0.6 (0.2-0.8); MONOCYTES % 10.2 % (4.4-11.3); NEUTROPHILS # (AUTO) 4.4 (2.1-6.9); NEUTROPHILS % 70.2 % (38.7-80.0); PLATELET COUNT 104 x10e3/uL (140-360); RED BLOOD COUNT 4.04 x10e6/uL (4.3-5.7); RED CELL DISTRIBUTION WIDTH 16.7 % (11.7-14.4)
[2021-05-09 12:34] LABS: INR 1.23
[2021-05-09 12:44] LABS: ANION GAP 12.2 mmol/L (8-16); CALCIUM 7.8 mg/dL (8.4-10.2); CREATININE, SERUM 0.62 mg/dL (0.72-1.25); MAGNESIUM 1.8 MG/DL (1.3-2.1); POTASSIUM 3.2 mmol/L (3.5-5.1)
[2021-05-09] MEDS ORDERED: POTASSIUM CHLORIDE 10MEQ/100ML 200 ML IV ONE (14:30)
[2021-05-09] MEDS ORDERED: POTASSIUM CHLORIDE 20 MEQ TAB CR PO ONE (15:00)
[2021-05-09] MEDS ORDERED: ONDANSETRON HCL INJ 2MG/ML 2ML 2 MG/ML VIAL IV PRN (16:45)
[2021-05-09] MEDS ORDERED: PROPRANOLOL HCL 10 MG TAB PO SCH (17:00)
[2021-05-09] MEDS ORDERED: POTASSIUM CHLORIDE 20 MEQ TAB CR PO STA (17:55)
[2021-05-09] MEDS: MULTIVITAMINS/MINERALS TAB PO SCH (17:56)
[2021-05-09] MEDS: FOLIC ACID 1 MG TAB PO SCH (17:56)
[2021-05-09] MEDS: LACTULOSE SYRUP 20 GM/30 ML UDC PO SCH (17:56)
[2021-05-09] MEDS ORDERED: PROPRANOLOL HCL 40 MG TAB PO SCH (18:00)
[2021-05-09 18:28] LABS: HEMOGLOBIN 11.6 g/dL (14.0-18.0)
[2021-05-10] VITALS (7 sets, daily range): BP systolic 99–119; BP diastolic 58–70
[2021-05-10] MEDS: CEFEPIME 1 GM in SODIUM CHLORIDE 0.9% 50ML 50 ML IV SCH ×2 (06:48→14:28)
[2021-05-10 06:53] LABS: BASOPHILS # (AUTO) 0.1 (0.0-0.1); BASOPHILS % 0.7 % (0.0-1.0); EOSINOPHILS # (AUTO) 0.2 (0.0-0.4); EOSINOPHILS % 2.6 % (0.0-6.0); HEMATOCRIT 30.8 % (38.2-49.6); HEMOGLOBIN 10.4 g/dL (14.0-18.0); LYMPHOCYTES # (AUTO) 0.7 (1.0-3.2); LYMPHOCYTES % 9.5 % (18.0-39.1); MEAN CORPUSCULAR HEMOGLOBIN 30.1 pg (28-32); MEAN CORPUSCULAR HGB CONC 33.8 g/dL (31-35); MEAN CORPUSCULAR VOLUME 89.3 fL (81-99); MONOCYTES # (AUTO) 0.7 (0.2-0.8); MONOCYTES % 9.4 % (4.4-11.3); NEUTROPHILS # (AUTO) 5.3 (2.1-6.9); NEUTROPHILS % 77.2 % (38.7-80.0); PLATELET COUNT 112 x10e3/uL (140-360); RED BLOOD COUNT 3.45 x10e6/uL (4.3-5.7); RED CELL DISTRIBUTION WIDTH 16.5 % (11.7-14.4)
[2021-05-10 07:07] LABS: ANION GAP 11.7 mmol/L (8-16); CALCIUM 7.6 mg/dL (8.4-10.2); CREATININE, SERUM 0.59 mg/dL (0.72-1.25); POTASSIUM 3.7 mmol/L (3.5-5.1)
[2021-05-10] MEDS ORDERED: XIFAXAN550 MG PO (07:44)
[2021-05-10] MEDS ORDERED: B-1100 MG PO (07:44)
[2021-05-10] MEDS ORDERED: PROPRANOLOL HCL40 MG PO (07:44)
[2021-05-10] MEDS ORDERED: FERROUS SULFAT325 MG PO (07:44)
[2021-05-10] MEDS ORDERED: SPIRONOLACTONE25 MG PO (07:44)
[2021-05-10] MEDS ORDERED: PANTOPRAZOLE SO40 MG PO (07:44)
[2021-05-10] MEDS ORDERED: ASCORBIC ACID500 M2 PO (07:44)
[2021-05-10] MEDS ORDERED: FUROSEMIDE20 MG PO (07:44)
[2021-05-10] MEDS: LACTULOSE SYRUP 20 GM/30 ML UDC PO SCH (09:00)
[2021-05-10] MEDS: RIFAXIMIN 550 MG TABLET PO SCH (09:00)
[2021-05-10] MEDS: MULTIVITAMINS/MINERALS TAB PO SCH (09:00)
[2021-05-10] MEDS: THIAMINE HCL INJ 100 MG/ML 2ML VIAL IV SCH (09:00)
[2021-05-10] MEDS: FOLIC ACID 1 MG TAB PO SCH (09:00)
[2021-05-10] MEDS ORDERED: SPIRONOLACTONE 25 MG TAB PO SCH (09:00)
[2021-05-10] MEDS ORDERED: PROPRANOLOL HCL 10 MG TAB PO SCH (09:00)
[2021-05-10] MEDS: OCTREOTIDE ACETATE 500 MCG in SODIUM CHLORIDE 0.9% 250ML 250 ML IV SCH (10:07)
[2021-05-10 13:32] LABS: HEMATOCRIT 32.7 % (38.2-49.6); HEMOGLOBIN 10.6 g/dL (14.0-18.0)
[2021-05-10] MEDS ORDERED: FUROSEMIDE 20 MG TAB PO SCH (18:00)
== END 2021-05-10 17:05 | disposition home or self-care (01) | DRG 432 ==
LOC: ER 20:10 → ERHOLD 22:49 → MED/SURG3 05-08 07:25
PROVIDERS: ADMIT Internal Medicine; ATTEND Internal Medicine
PROC: 30233N1 Transfusion of Nonautologous Red Blood Cells into Peripheral Vein, Percutaneous Approach (ICD-10-PCS; principal; 2021-05-07)
PROC: 0W9G3ZZ Drainage of Peritoneal Cavity, Percutaneous Approach (ICD-10-PCS; 2021-05-08)
PROC: 06L28CZ Occlusion of Gastric Vein with Extraluminal Device, Via Natural or Artificial Opening Endoscopic (ICD-10-PCS; 2021-05-09)
DX: K70.31 Alcoholic cirrhosis of liver with ascites (principal); I85.11 Secondary esophageal varices with bleeding; D62 Acute posthemorrhagic anemia; K76.6 Portal hypertension; I25.10 Atherosclerotic heart disease of native coronary artery without angina pectoris; Z95.5 Presence of coronary angioplasty implant and graft; E78.5 Hyperlipidemia, unspecified; F17.200 Nicotine dependence, unspecified, uncomplicated; F10.20 Alcohol dependence, uncomplicated; K31.89 Other diseases of stomach and duodenum; Z20.822 Contact with and (suspected) exposure to COVID-19
CPT/HCPCS: 36415; 43239; 49083; 70450; 71045; 72125; 72128; 72131; 74470; 76705; 80048; 80053; 80320; 81001; 82140; 82550; 82553; 83605; 83735; 84157; 84484; 85014; 85018; 85025; 85610; 85730; 86850; 86900; 86920; 87040; 87070; 87071; 87205; 88112; 88305; 89051; 93005; 99285; C1729; J0692; J1940; J2353; J2405; J3411; J3430; J3480; J7030; J7050; P9016; U0002

== ENCOUNTER → 2021-05-27 | Outpatient (CLI) | payer MEDICARE ==
[~2021-05-27] MED LIST changes: +ALBUMIN 25% 12.5GM 50ML 200 ML IV ONE; +ASCORBIC ACID500 M2 PO; +FERROUS SULFAT325 MG PO; +FUROSEMIDE20 MG PO; +PANTOPRAZOLE SO40 MG PO
[2021-05-27 16:20] LABS: BODY FLUID APPEARANCE SL.CLOUDY; BODY FLUID COLOR YELLOW; BODY FLUID TYPE PERITONEAL; RBC,BODY FLUID < 2000 cells/uL; WBC,BODY FLUID 94 cells/uL
[2021-05-27 17:49] LABS: LYMPHOCYTES,BODY FLUID 45 %; NEUTROPHILS,BODY FLUID 2 %
[2021-05-27 17:50] LABS: MONO/MACROPHG,BODY FLUID 63 %
== END ==
LOC: US 11:44
PROVIDERS: ATTEND Internal Medicine Gastroenterology
DX: K70.31 Alcoholic cirrhosis of liver with ascites (principal)
CPT/HCPCS: 36415; 49083; 87070; 87205; 88305; 89051; C1729; 88112

== ENCOUNTER → 2021-06-10 | Outpatient (CLI) | payer MEDICARE ==
[~2021-06-10] MED LIST changes: +ALBUMIN 25% 12.5GM 50ML 100 ML IV ONE; -ALBUMIN 25% 12.5GM 50ML 200 ML IV ONE
[2021-06-10 12:47] LABS: BODY FLUID COLOR YELLOW
[2021-06-10 12:48] LABS: BODY FLUID APPEARANCE CLOUDY; BODY FLUID TYPE PERITONEAL
[2021-06-10 12:49] LABS: RBC,BODY FLUID 0 cells/uL; WBC,BODY FLUID 77 cells/uL
[2021-06-10 13:34] LABS: MONO/MACROPHG,BODY FLUID 2 %
[2021-06-10 13:35] LABS: LYMPHOCYTES,BODY FLUID 20 %; NEUTROPHILS,BODY FLUID 3 %; OTHER CELLS,BODY FLUID 75 %
== END ==
LOC: US 07:46
PROVIDERS: ATTEND Internal Medicine Gastroenterology
DX: K70.31 Alcoholic cirrhosis of liver with ascites (principal)
CPT/HCPCS: 36415; 49083; 87070; 87205; 88112; 88305; 89051

== ENCOUNTER → 2021-06-24 | Outpatient (CLI) | payer MEDICARE ==
[~2021-06-24] MED LIST changes: -ALBUMIN 25% 12.5GM 50ML 100 ML IV ONE; +ALBUMIN 25% 12.5GM 50ML 200 ML IV ONE; +LIDOCAINE HCL 1% LOCAL INJ 20 ML VIAL ONE
[2021-06-24 12:32] LABS: HEMOGLOBIN 10.1 g/dL (14.0-18.0)
[2021-06-24 12:41] LABS: INR 1.1; PROTHROMBIN TIME 15.1 seconds (11.9-14.5)
[2021-06-24 12:42] LABS: PARTIAL THROMBOPLASTIN TIME 29.6 seconds (23.8-35.5)
[2021-06-24 15:49] LABS: BODY FLUID APPEARANCE SL.CLOUDY; BODY FLUID COLOR YELLOW
[2021-06-24 15:50] LABS: RBC,BODY FLUID 0 cells/uL; WBC,BODY FLUID 92 cells/uL
[2021-06-24 16:16] LABS: BODY FLUID TYPE PERITONEAL
[2021-06-24 16:24] LABS: LYMPHOCYTES,BODY FLUID 26 %; MONO/MACROPHG,BODY FLUID 72 %; NEUTROPHILS,BODY FLUID 2 %
== END ==
LOC: US 11:55
PROVIDERS: ATTEND Internal Medicine Gastroenterology
DX: K70.31 Alcoholic cirrhosis of liver with ascites (principal)
CPT/HCPCS: 36415; 49083; 85014; 85049; 85610; 85730; 87070; 87205; 89051; C1729; J2001; 88112; 88305

== ENCOUNTER → 2021-07-03 | Outpatient (CLI) | payer MEDICARE ==
[~2021-07-03] MED LIST changes: -LIDOCAINE HCL 1% LOCAL INJ 20 ML VIAL ONE
[2021-07-03 15:59] LABS: BODY FLUID COLOR YELLOW; BODY FLUID TYPE PERITONEAL
[2021-07-03 16:00] LABS: BODY FLUID APPEARANCE SL.CLOUDY; RBC,BODY FLUID < 2000 cells/uL; WBC,BODY FLUID 140 cells/uL
[2021-07-03 16:49] LABS: LYMPHOCYTES,BODY FLUID 58 %; MONO/MACROPHG,BODY FLUID 39 %; NEUTROPHILS,BODY FLUID 3 %
== END ==
LOC: US 12:40
PROVIDERS: ATTEND Internal Medicine Gastroenterology
DX: K70.31 Alcoholic cirrhosis of liver with ascites (principal)
CPT/HCPCS: 36415; 49083; 87070; 87205; 88112; 88305; 89051

== ENCOUNTER → 2021-07-14 | Outpatient (CLI) | payer MEDICARE ==
[2021-07-14 15:04] LABS: BODY FLUID APPEARANCE CLOUDY; BODY FLUID COLOR STRAW; BODY FLUID TYPE PERITONEAL
[2021-07-14 15:12] LABS: RBC,BODY FLUID < 2000 cells/uL; WBC,BODY FLUID 157 cells/uL
[2021-07-14 16:03] LABS: LYMPHOCYTES,BODY FLUID 30 %; MONO/MACROPHG,BODY FLUID 59 %; NEUTROPHILS,BODY FLUID 5 %; OTHER CELLS,BODY FLUID 6 %
== END ==
LOC: US 12:24
PROVIDERS: ATTEND Internal Medicine Gastroenterology
DX: K70.31 Alcoholic cirrhosis of liver with ascites (principal)
CPT/HCPCS: 36415; 49083; 87070; 87205; 88112; 88305; 89051

== ENCOUNTER → 2021-07-23 | Outpatient (CLI) | payer MEDICARE ==
[2021-07-23 16:10] LABS: BODY FLUID APPEARANCE SL.CLOUDY; BODY FLUID COLOR YELLOW; BODY FLUID TYPE PERITONEAL; RBC,BODY FLUID < 2000 cells/uL; WBC,BODY FLUID 222 cells/uL
[2021-07-23 16:57] LABS: LYMPHOCYTES,BODY FLUID 25 %; MONO/MACROPHG,BODY FLUID 68 %; NEUTROPHILS,BODY FLUID 1 %; OTHER CELLS,BODY FLUID 6 %
== END ==
LOC: US 12:54
PROVIDERS: ATTEND Internal Medicine Gastroenterology
DX: R18.8 Other ascites (principal)
CPT/HCPCS: 36415; 49083; 87070; 87205; 89051; C1729

== ENCOUNTER → 2021-08-06 | Outpatient (CLI) | payer MEDICARE ==
[~2021-08-06] MED LIST changes: -ALBUMIN 25% 12.5GM 50ML 200 ML IV ONE; +ALBUMIN 25% 25GM 100ML 0.25 GM/ML BTL IV ONE
[2021-08-06 15:47] LABS: BODY FLUID APPEARANCE TURBID; BODY FLUID COLOR RED; BODY FLUID TYPE PERITONEAL; WBC,BODY FLUID 269 cells/uL
[2021-08-06 16:14] LABS: LYMPHOCYTES,BODY FLUID 59 %; MONO/MACROPHG,BODY FLUID 40 %; NEUTROPHILS,BODY FLUID 1 %
[2021-08-06 16:19] LABS: RBC,BODY FLUID 7000 cells/uL
== END ==
LOC: US 11:59
PROVIDERS: ATTEND Internal Medicine Gastroenterology
DX: R18.8 Other ascites (principal)
CPT/HCPCS: 36415; 49083; 87070; 87205; 89051; P9047; C1729

== ENCOUNTER → 2021-08-19 | Outpatient (CLI) | payer MEDICARE ==
[~2021-08-19] MED LIST changes: +ALBUMIN 25% 12.5GM 50ML 200 ML IV ONE; -ALBUMIN 25% 25GM 100ML 0.25 GM/ML BTL IV ONE
[2021-08-19 10:45] LABS: HEMOGLOBIN 12.9 g/dL (14.0-18.0)
[2021-08-19 11:00] LABS: INR 1.12; PROTHROMBIN TIME 15.2 seconds (11.9-14.5)
[2021-08-19 11:01] LABS: PARTIAL THROMBOPLASTIN TIME 30.5 seconds (23.8-35.5)
[2021-08-19 14:28] LABS: BODY FLUID APPEARANCE CLOUDY; BODY FLUID COLOR YELLOW; BODY FLUID TYPE PERITONEAL; RBC,BODY FLUID 2000 cells/uL; WBC,BODY FLUID 316 cells/uL
[2021-08-19 15:58] LABS: LYMPHOCYTES,BODY FLUID 1 %; MONO/MACROPHG,BODY FLUID 97 %; NEUTROPHILS,BODY FLUID 1 %; OTHER CELLS,BODY FLUID 1 %
== END ==
LOC: US 10:30
PROVIDERS: ATTEND Internal Medicine Gastroenterology
DX: R18.8 Other ascites (principal)
CPT/HCPCS: 36415; 49083; 85014; 85049; 85610; 85730; 87070; 87205; 89051; C1729

== ENCOUNTER 2021-08-21 12:05 | Inpatient (IN) | payer MEDICARE ==
[~2021-08-21] VITALS: Ht 162.6 cm; Wt 62.6 kg
[~2021-08-21 12:05] MED LIST changes: -ALBUMIN 25% 12.5GM 50ML 200 ML IV ONE
[2021-08-21] MEDS ORDERED: SODIUM CHLORIDE 0.9% 1000ML 1,000 ML IV STA (12:33)
[2021-08-21] MEDS ORDERED: ONDANSETRON HCL INJ 2MG/ML 2ML 2 MG/ML VIAL IV STA (12:33)
[2021-08-21] MEDS ORDERED: SODIUM CHLORIDE 0.9% 250ML 250 ML IV ONE (12:45)
[2021-08-21] MEDS ORDERED: OCTREOTIDE ACETATE 0.05 MG/ML AMP IV STA (12:47)
[2021-08-21] MEDS ORDERED: ONDANSETRON HCL INJ 2MG/ML 2ML 8 MG in SODIUM CHLORIDE 0.9% 50ML 50 ML IV ONE (13:15)
[2021-08-21 13:31] LABS: BASOPHILS % 0.4 % (0.0-1.0); HEMATOCRIT 23.5 % (38.2-49.6); HEMOGLOBIN 7.2 g/dL (14.0-18.0); LYMPHOCYTES # (AUTO) 1.5 (1.0-3.2); LYMPHOCYTES % 18.2 % (18.0-39.1); MEAN CORPUSCULAR HEMOGLOBIN 27.7 pg (28-32); MEAN CORPUSCULAR HGB CONC 30.6 g/dL (31-35); MEAN CORPUSCULAR VOLUME 90.4 fL (81-99); MONOCYTES # (AUTO) 0.9 (0.2-0.8); MONOCYTES % 10.7 % (4.4-11.3); NEUTROPHILS # (AUTO) 5.9 (2.1-6.9); NEUTROPHILS % 70.3 % (38.7-80.0); PLATELET COUNT 188 x10e3/uL (140-360); RED CELL DISTRIBUTION WIDTH 17.4 % (11.7-14.4)
[2021-08-21 13:38] LABS: INR 1.43; PROTHROMBIN TIME 18.4 seconds (11.9-14.5)
[2021-08-21 13:39] LABS: PARTIAL THROMBOPLASTIN TIME 22.8 seconds (23.8-35.5)
[2021-08-21 13:47] LABS: ALBUMIN 3.4 g/dL (3.5-5.0); ALBUMIN/GLOBULIN RATIO 1.4 (0.8-2.0); ANION GAP 18.6 mmol/L (8-16); CALCIUM 8.9 mg/dL (8.4-10.2); CREATININE, SERUM 0.82 mg/dL (0.72-1.25); POTASSIUM 3.6 mmol/L (3.5-5.1)
[2021-08-21 13:54] LABS: CREATINE KINASE MB 1.1 ng/mL (0-5.0)
[2021-08-21] MEDS ORDERED: IOPAMIDOL 370 MG/ML 200 ML INFUS..BTL INJ ONE (14:13)
[2021-08-21] MEDS ORDERED: SODIUM CHLORIDE 0.9% 50ML 50 ML ONE (14:13)
[2021-08-21] MEDS ORDERED: PIPERACILLIN/TAZOBACTAM 3.375 GM in SODIUM CHLORIDE 0.9% 50ML 50 ML IV STA (14:14)
[2021-08-21] MEDS ORDERED: SODIUM CHLORIDE 0.9% 1000ML 1,000 ML IV SCH (14:15)
[2021-08-21] MEDS: OCTREOTIDE ACETATE 500 MCG in SODIUM CHLORIDE 0.9% 250ML 249 ML IV SCH ×2 (15:23→23:00)
[2021-08-21 16:01] LABS: CLARITY,URINE CLOUDY (CLEAR); COLOR,URINE AMBER (YELLOW); KETONES,URINE NEGATIVE (NEGATIVE); LEUKOCYTE ESTERASE ,URINE NEGATIVE (NEGATIVE); NITRITE,URINE NEGATIVE (NEGATIVE); PROTEIN,URINE DIPSTICK NEGATIVE (NEGATIVE); URINE UROBILINOGEN 1 mg/dL (0.2 - 1)
[2021-08-21 16:10] LABS: BACTERIA,URINE FEW /HPF; EPITHELIAL CELLS,URINE FEW /LPF; MUCUS,URINE MODERATE (RARE)
[2021-08-21] MEDS ORDERED: ONDANSETRON HCL INJ 2MG/ML 2ML 2 MG/ML VIAL IV PRN (16:45)
[2021-08-21] MEDS ORDERED: PANTOPRAZOLE SOD 40 MG TABEC PO SCH (17:00)
[2021-08-21] MEDS ORDERED: SODIUM CHLORIDE 0.9% 250ML 250 ML ONE ×2 (17:01→22:43)
[2021-08-21] MEDS: SODIUM CHLORIDE 0.9% 1000ML 1,000 ML IV SCH (17:39)
[2021-08-21] MEDS ORDERED: MULTIVITAMINS- 12 INJECTION 10 ML, FOLIC ACID MDV 1 MG, THIAMINE HCL INJ 100 MG in SODI... IV ONE (18:00)
[2021-08-21] MEDS ORDERED: LORAZEPAM INJ 2 MG/ML VIAL IV PRN (18:30)
[2021-08-22] VITALS (15 sets, daily range): BP systolic 103–125; BP diastolic 52–88
[2021-08-22 00:14] LABS: CREATINE KINASE MB 1.3 ng/mL (0-5.0)
[2021-08-22] MEDS: SODIUM CHLORIDE 0.9% 1000ML 1,000 ML IV SCH ×2 (02:18→04:00)
[2021-08-22] MEDS: OCTREOTIDE ACETATE 500 MCG in SODIUM CHLORIDE 0.9% 250ML 249 ML IV SCH ×2 (04:18→17:12)
[2021-08-22 05:18] LABS: ALBUMIN 2.2 g/dL (3.5-5.0); ALBUMIN/GLOBULIN RATIO 0.7 (0.8-2.0); ANION GAP 12.7 mmol/L (8-16); CALCIUM 8.2 mg/dL (8.4-10.2); CREATININE, SERUM 1.82 mg/dL (0.72-1.25); POTASSIUM 3.7 mmol/L (3.5-5.1)
[2021-08-22 05:35] LABS: CHOL/HDL RATIO 6.7 (3.9-4.7)
[2021-08-22 09:05] LABS: BASOPHILS % 0.8 % (0.0-1.0); EOSINOPHILS # (AUTO) 0.1 (0.0-0.4); EOSINOPHILS % 2.5 % (0.0-6.0); HEMATOCRIT 26.1 % (38.2-49.6); HEMOGLOBIN 8.2 g/dL (14.0-18.0); LYMPHOCYTES # (AUTO) 0.7 (1.0-3.2); LYMPHOCYTES % 18.9 % (18.0-39.1); MEAN CORPUSCULAR HGB CONC 31.4 g/dL (31-35); MEAN CORPUSCULAR VOLUME 92.2 fL (81-99); MONOCYTES # (AUTO) 0.3 (0.2-0.8); MONOCYTES % 9.2 % (4.4-11.3); NEUTROPHILS # (AUTO) 2.5 (2.1-6.9); NEUTROPHILS % 68.3 % (38.7-80.0); PLATELET COUNT 85 x10e3/uL (140-360); RED BLOOD COUNT 2.83 x10e6/uL (4.3-5.7); RED CELL DISTRIBUTION WIDTH 16.1 % (11.7-14.4)
[2021-08-22] MEDS ORDERED: CEFTRIAXONE 1 GM VIAL IM NR (16:00)
[2021-08-22] MEDS ORDERED: LACTATED RINGER'S 1,000 ML INJ SCH (16:00)
[2021-08-22] MEDS: SPIRONOLACTONE 25 MG TAB PO SCH (17:32)
[2021-08-22] MEDS: RIFAXIMIN 550 MG TABLET PO SCH (17:32)
[2021-08-23] VITALS (12 sets, daily range): BP systolic 118–145; BP diastolic 59–85
[2021-08-23] MEDS: SODIUM CHLORIDE 0.9% 1000ML 1,000 ML IV SCH ×3 (02:03→16:49)
[2021-08-23] MEDS: OCTREOTIDE ACETATE 500 MCG in SODIUM CHLORIDE 0.9% 250ML 249 ML IV SCH ×2 (02:12→14:42)
[2021-08-23] MEDS ORDERED: PHYTONADIONE 10 MG/ML AMP IV ONE (04:45)
[2021-08-23] MEDS ORDERED: PHYTONADIONE 10MG/ML 2 ML ONE (04:55)
[2021-08-23] MEDS ORDERED: SODIUM CHLORIDE 0.9% 100 ML ONE (04:55)
[2021-08-23 06:20] LABS: BASOPHILS % 1.2 % (0.0-1.0); EOSINOPHILS # (AUTO) 0.2 (0.0-0.4); EOSINOPHILS % 4.5 % (0.0-6.0); HEMATOCRIT 29.6 % (38.2-49.6); HEMOGLOBIN 8.9 g/dL (14.0-18.0); LYMPHOCYTES # (AUTO) 0.7 (1.0-3.2); LYMPHOCYTES % 21.4 % (18.0-39.1); MEAN CORPUSCULAR HEMOGLOBIN 28.9 pg (28-32); MEAN CORPUSCULAR HGB CONC 30.1 g/dL (31-35); MEAN CORPUSCULAR VOLUME 96.1 fL (81-99); MONOCYTES # (AUTO) 0.3 (0.2-0.8); MONOCYTES % 7.8 % (4.4-11.3); NEUTROPHILS # (AUTO) 2.2 (2.1-6.9); NEUTROPHILS % 64.8 % (38.7-80.0); PLATELET COUNT 85 x10e3/uL (140-360); RED BLOOD COUNT 3.08 x10e6/uL (4.3-5.7); RED CELL DISTRIBUTION WIDTH 17.2 % (11.7-14.4)
[2021-08-23 06:37] LABS: ALBUMIN 2.8 g/dL (3.5-5.0); ALBUMIN/GLOBULIN RATIO 1.3 (0.8-2.0); ANION GAP 10.3 mmol/L (8-16); CALCIUM 7.7 mg/dL (8.4-10.2); CHOL/HDL RATIO 4.1 (3.9-4.7); CREATININE, SERUM 0.52 mg/dL (0.72-1.25); MAGNESIUM 1.7 MG/DL (1.3-2.1); PHOSPHORUS 2.4 MG/DL (2.3-4.7); POTASSIUM 3.3 mmol/L (3.5-5.1)
[2021-08-23] MEDS ORDERED: PANTOPRAZOLE SOD 40 MG TABEC PO SCH (07:30)
[2021-08-23] MEDS ORDERED: LACTULOSE SYRUP 20 GM/30 ML UDC PO SCH (09:00)
[2021-08-23] MEDS: RIFAXIMIN 550 MG TABLET PO SCH ×2 (09:24→16:49)
[2021-08-23] MEDS: ASCORBIC ACID 500 MG TAB PO SCH (09:24)
[2021-08-23] MEDS: SPIRONOLACTONE 25 MG TAB PO SCH ×2 (09:24→16:49)
[2021-08-23] MEDS: THIAMINE HCL 100 MG TAB PO SCH (09:24)
[2021-08-23] MEDS: FERROUS SULFATE 325 MG TAB PO SCH (09:24)
[2021-08-23] MEDS: CEFTRIAXONE 1 GM in SODIUM CHLORIDE 0.9% 50ML 50 ML IV SCH (09:24)
[2021-08-23] MEDS: LACTULOSE SYRUP 20 GM/30 ML UDC PO SCH ×2 (12:45→16:49)
[2021-08-23] MEDS ORDERED: POTASSIUM CHLORIDE 20 MEQ TAB CR PO NR (14:04)
[2021-08-24] VITALS (9 sets, daily range): BP systolic 97–146; BP diastolic 63–79
[2021-08-24 00:48] LABS: % IRON SATURATION 8 % (15-50); IRON 22 ug/dL (65-175); TOTAL IRON BINDING CAPACITY 269 ug/dL (261-478); TRANSFERRIN 192 mg/dL (174-364)
[2021-08-24] MEDS: OCTREOTIDE ACETATE 500 MCG in SODIUM CHLORIDE 0.9% 250ML 249 ML IV SCH ×3 (02:05→21:16)
[2021-08-24] MEDS: CEFTRIAXONE 1 GM in SODIUM CHLORIDE 0.9% 50ML 50 ML IV SCH (09:11)
[2021-08-24] MEDS: SPIRONOLACTONE 25 MG TAB PO SCH ×2 (11:18→17:48)
[2021-08-24] MEDS: LACTULOSE SYRUP 20 GM/30 ML UDC PO SCH ×2 (11:19→17:48)
[2021-08-24] MEDS: RIFAXIMIN 550 MG TABLET PO SCH ×2 (11:19→17:48)
[2021-08-24] MEDS: THIAMINE HCL 100 MG TAB PO SCH (11:19)
[2021-08-24] MEDS: ASCORBIC ACID 500 MG TAB PO SCH (11:19)
[2021-08-24] MEDS: FERROUS SULFATE 325 MG TAB PO SCH (11:19)
[2021-08-24] MEDS ORDERED: PROPRANOLOL HCL 10 MG TAB PO ONE (11:20)
[2021-08-24] MEDS ORDERED: EPHEDRINE SULFATE INJ 50 MG/ML VIAL ONE (12:45)
[2021-08-24] MEDS ORDERED: PROPOFOL IV EMULSION 10 MG/ML 20 ML VIAL ONE (12:45)
[2021-08-24] MEDS ORDERED: LIDOCAINE HCL 2% LOCAL INJ 5 ML SDV VIAL INJ ONE (12:45)
[2021-08-24] MEDS ORDERED: PHENYLEPHRINE HCL 1% 10 MG/ML VIAL ONE (12:45)
[2021-08-24] MEDS ORDERED: FENTANYL CITRATE/PF 100MCG/2 ML INJ ONE (13:28)
[2021-08-24] MEDS ORDERED: MIDAZOLAM HCL 2 MG/2 ML VIAL ONE (13:28)
[2021-08-24] MEDS: PROPRANOLOL HCL 10 MG TAB PO SCH (17:49)
[2021-08-25 04:00] VITALS: BP 100/63
[2021-08-25 05:31] LABS: BASOPHILS % 0.9 % (0.0-1.0); EOSINOPHILS # (AUTO) 0.2 (0.0-0.4); EOSINOPHILS % 5.1 % (0.0-6.0); HEMATOCRIT 29.4 % (38.2-49.6); HEMOGLOBIN 9.1 g/dL (14.0-18.0); LYMPHOCYTES # (AUTO) 0.9 (1.0-3.2); LYMPHOCYTES % 21.7 % (18.0-39.1); MEAN CORPUSCULAR HEMOGLOBIN 29.2 pg (28-32); MEAN CORPUSCULAR VOLUME 94.2 fL (81-99); MONOCYTES # (AUTO) 0.6 (0.2-0.8); MONOCYTES % 14.2 % (4.4-11.3); NEUTROPHILS # (AUTO) 2.5 (2.1-6.9); NEUTROPHILS % 57.9 % (38.7-80.0); PLATELET COUNT 104 x10e3/uL (140-360); RED BLOOD COUNT 3.12 x10e6/uL (4.3-5.7); RED CELL DISTRIBUTION WIDTH 17.4 % (11.7-14.4)
[2021-08-25 05:48] LABS: CALCIUM 7.8 mg/dL (8.4-10.2); CARBON DIOXIDE 21 mmol/L (22-29); CHLORIDE 110 mmol/L (98-107); CREATININE, SERUM 0.58 mg/dL (0.72-1.25); EST GLOMERULAR FILTRATION RATE 140 ML/MIN (60-); GLUCOSE 120 mg/dL (74-118); SODIUM 138 mmol/L (136-145)
[2021-08-25 05:50] LABS: BUN/CREATININE RATIO 9 (6-25)
[2021-08-25 06:03] LABS: BLOOD UREA NITROGEN < 5 mg/dL (7-26)
[2021-08-25 08:00] VITALS: BP 111/64
[2021-08-25] MEDS: LACTULOSE SYRUP 20 GM/30 ML UDC PO SCH ×2 (09:00→17:11)
[2021-08-25] MEDS: THIAMINE HCL 100 MG TAB PO SCH (09:02)
[2021-08-25] MEDS: RIFAXIMIN 550 MG TABLET PO SCH ×2 (09:02→17:12)
[2021-08-25] MEDS: ASCORBIC ACID 500 MG TAB PO SCH (09:02)
[2021-08-25] MEDS: SPIRONOLACTONE 25 MG TAB PO SCH ×2 (09:03→17:12)
[2021-08-25] MEDS: OCTREOTIDE ACETATE 500 MCG in SODIUM CHLORIDE 0.9% 250ML 249 ML IV SCH ×2 (09:03→17:00)
[2021-08-25] MEDS: FERROUS SULFATE 325 MG TAB PO SCH (09:03)
[2021-08-25] MEDS: CEFTRIAXONE 1 GM in SODIUM CHLORIDE 0.9% 50ML 50 ML IV SCH (09:03)
[2021-08-25] MEDS: PROPRANOLOL HCL 10 MG TAB PO SCH ×2 (09:04→17:12)
[2021-08-25] MEDS ORDERED: SODIUM CHLORIDE 0.9% 250ML 250 ML ONE (09:09)
[2021-08-25] MEDS ORDERED: POTASSIUM CHLORIDE 20 MEQ TAB CR PO NR (10:10)
[2021-08-25 11:51] VITALS: BP 113/87
[2021-08-25] MEDS ORDERED: ALBUMIN 25% 12.5GM 50ML 0 ML IV ONE (15:18)
[2021-08-25 16:00] VITALS: BP 113/69
[2021-08-25 20:00] VITALS: BP 133/69
[2021-08-25 20:50] VITALS: BP 133/69
[2021-08-26] VITALS (8 sets, daily range): BP systolic 89–134; BP diastolic 56–71
[2021-08-26] MEDS: OCTREOTIDE ACETATE 500 MCG in SODIUM CHLORIDE 0.9% 250ML 249 ML IV SCH ×3 (03:00→22:17)
[2021-08-26 06:22] LABS: EOSINOPHILS # (AUTO) 0.1 (0.0-0.4); EOSINOPHILS % 3.2 % (0.0-6.0); HEMATOCRIT 28.1 % (38.2-49.6); HEMOGLOBIN 8.8 g/dL (14.0-18.0); LYMPHOCYTES # (AUTO) 0.8 (1.0-3.2); LYMPHOCYTES % 26.8 % (18.0-39.1); MEAN CORPUSCULAR HEMOGLOBIN 29.1 pg (28-32); MEAN CORPUSCULAR HGB CONC 31.3 g/dL (31-35); MONOCYTES # (AUTO) 0.5 (0.2-0.8); MONOCYTES % 16.5 % (4.4-11.3); NEUTROPHILS # (AUTO) 1.6 (2.1-6.9); NEUTROPHILS % 52.2 % (38.7-80.0); PLATELET COUNT 96 x10e3/uL (140-360); RED BLOOD COUNT 3.02 x10e6/uL (4.3-5.7); RED CELL DISTRIBUTION WIDTH 17.2 % (11.7-14.4)
[2021-08-26 06:49] LABS: ALANINE AMINOTRANSFERASE 10 IU/L (0-55); ALBUMIN/GLOBULIN RATIO 1.6 (0.8-2.0); ALKALINE PHOSPHATASE 46 IU/L (40-150); ANION GAP 11.3 mmol/L (8-16); BLOOD UREA NITROGEN < 5 mg/dL (7-26); CALCIUM 8.1 mg/dL (8.4-10.2); CARBON DIOXIDE 22 mmol/L (22-29); CHLORIDE 110 mmol/L (98-107); CREATININE, SERUM 0.57 mg/dL (0.72-1.25); EST GLOMERULAR FILTRATION RATE 143 ML/MIN (60-); GLUCOSE 106 mg/dL (74-118); POTASSIUM 3.3 mmol/L (3.5-5.1); SODIUM 140 mmol/L (136-145)
[2021-08-26 06:53] LABS: BUN/CREATININE RATIO 9 (6-25)
[2021-08-26] MEDS: RIFAXIMIN 550 MG TABLET PO SCH ×2 (08:34→17:07)
[2021-08-26] MEDS: LACTULOSE SYRUP 20 GM/30 ML UDC PO SCH ×2 (08:35→17:07)
[2021-08-26] MEDS: FERROUS SULFATE 325 MG TAB PO SCH (08:35)
[2021-08-26] MEDS: PROPRANOLOL HCL 10 MG TAB PO SCH ×2 (08:36→17:06)
[2021-08-26] MEDS: ASCORBIC ACID 500 MG TAB PO SCH (08:37)
[2021-08-26] MEDS: CEFTRIAXONE 1 GM in SODIUM CHLORIDE 0.9% 50ML 50 ML IV SCH (08:54)
[2021-08-26] MEDS: THIAMINE HCL 100 MG TAB PO SCH (08:54)
[2021-08-26] MEDS: SPIRONOLACTONE 25 MG TAB PO SCH ×2 (08:54→17:06)
[2021-08-26] MEDS ORDERED: IRON SUCROSE 100 MG in SODIUM CHLORIDE 0.9% 100 ML 100 ML IV SCH (09:00)
[2021-08-26] MEDS ORDERED: POTASSIUM CHLORIDE 20 MEQ TAB CR PO ONE (10:30)
[2021-08-27] VITALS: BP 129/58
[2021-08-27 04:00] VITALS: BP 123/64
[2021-08-27 05:55] LABS: BASOPHILS % 0.4 % (0.0-1.0); EOSINOPHILS # (AUTO) 0.1 (0.0-0.4); HEMATOCRIT 28.7 % (38.2-49.6); HEMOGLOBIN 9.2 g/dL (14.0-18.0); LYMPHOCYTES % 23.3 % (18.0-39.1); MEAN CORPUSCULAR HEMOGLOBIN 29.7 pg (28-32); MEAN CORPUSCULAR HGB CONC 32.1 g/dL (31-35); MEAN CORPUSCULAR VOLUME 92.6 fL (81-99); MONOCYTES # (AUTO) 0.8 (0.2-0.8); MONOCYTES % 18.8 % (4.4-11.3); NEUTROPHILS # (AUTO) 2.5 (2.1-6.9); NEUTROPHILS % 55.3 % (38.7-80.0); RED CELL DISTRIBUTION WIDTH 17.5 % (11.7-14.4)
[2021-08-27 06:07] LABS: PLATELET COUNT 100 x10e3/uL (140-360)
[2021-08-27 06:08] LABS: INR 1.23; PROTHROMBIN TIME 16.3 seconds (11.9-14.5)
[2021-08-27 06:16] LABS: ANION GAP 11.4 mmol/L (8-16); BLOOD UREA NITROGEN < 5 mg/dL (7-26); CALCIUM 7.9 mg/dL (8.4-10.2); CARBON DIOXIDE 24 mmol/L (22-29); CHLORIDE 107 mmol/L (98-107); CREATININE, SERUM 0.57 mg/dL (0.72-1.25); EST GLOMERULAR FILTRATION RATE 143 ML/MIN (60-); GLUCOSE 128 mg/dL (74-118); MAGNESIUM 1.8 MG/DL (1.3-2.1); PHOSPHORUS 2.2 MG/DL (2.3-4.7); POTASSIUM 3.4 mmol/L (3.5-5.1); SODIUM 139 mmol/L (136-145)
[2021-08-27 06:23] LABS: BUN/CREATININE RATIO 9 (6-25)
[2021-08-27 08:06] VITALS: BP 97/55
[2021-08-27] MEDS: SPIRONOLACTONE 25 MG TAB PO SCH (08:51)
[2021-08-27] MEDS: FERROUS SULFATE 325 MG TAB PO SCH (08:51)
[2021-08-27] MEDS: THIAMINE HCL 100 MG TAB PO SCH (08:53)
[2021-08-27] MEDS: RIFAXIMIN 550 MG TABLET PO SCH (08:53)
[2021-08-27] MEDS: LACTULOSE SYRUP 20 GM/30 ML UDC PO SCH (08:53)
[2021-08-27] MEDS: ASCORBIC ACID 500 MG TAB PO SCH (08:53)
[2021-08-27] MEDS: CEFTRIAXONE 1 GM in SODIUM CHLORIDE 0.9% 50ML 50 ML IV SCH (08:54)
[2021-08-27 08:56] VITALS: BP 97/55
[2021-08-27] MEDS ORDERED: PROPRANOLOL HCL 10 MG TAB PO SCH (09:00)
[2021-08-27] MEDS ORDERED: INDERAL10 MG PO (09:30)
== END 2021-08-27 10:41 | disposition home or self-care (01) | DRG 432 ==
LOC: ER 12:15 → ERHOLD 16:31 → ICU 23:50 → MED/SURG 08-23 15:50
PROVIDERS: ADMIT Internal Medicine; ATTEND Internal Medicine
PROC: 30233L1 Transfusion of Nonautologous Fresh Plasma into Peripheral Vein, Percutaneous Approach (ICD-10-PCS; 2021-08-21)
PROC: 30233N1 Transfusion of Nonautologous Red Blood Cells into Peripheral Vein, Percutaneous Approach (ICD-10-PCS; 2021-08-21)
PROC: 30233K1 Transfusion of Nonautologous Frozen Plasma into Peripheral Vein, Percutaneous Approach (ICD-10-PCS; 2021-08-21)
PROC: 0DB98ZX Excision of Duodenum, Via Natural or Artificial Opening Endoscopic, Diagnostic (ICD-10-PCS; 2021-08-24)
PROC: 06L38CZ Occlusion of Esophageal Vein with Extraluminal Device, Via Natural or Artificial Opening Endoscopic (ICD-10-PCS; 2021-08-24 15:00)
PROC: 0W9G3ZZ Drainage of Peritoneal Cavity, Percutaneous Approach (ICD-10-PCS; principal; 2021-08-25)
DX: K70.31 Alcoholic cirrhosis of liver with ascites (principal); I85.11 Secondary esophageal varices with bleeding; D62 Acute posthemorrhagic anemia; N17.9 Acute kidney failure, unspecified; E87.3 Alkalosis; K76.6 Portal hypertension; E86.0 Dehydration; F10.20 Alcohol dependence, uncomplicated; I10 Essential (primary) hypertension; I25.10 Atherosclerotic heart disease of native coronary artery without angina pectoris; E87.6 Hypokalemia; Z95.5 Presence of coronary angioplasty implant and graft; Z82.49 Family history of ischemic heart disease and other diseases of the circulatory system; K31.89 Other diseases of stomach and duodenum; Z20.822 Contact with and (suspected) exposure to COVID-19; Y90.0 Blood alcohol level of less than 20 mg/100 ml
CPT/HCPCS: 36415; 43239; 43255; 49083; 71045; 74177; 74470; 76705; 80048; 80053; 80061; 80320; 81001; 82140; 82550; 82553; 82607; 82746; 82948; 83036; 83540; 83605; 83690; 83735; 84100; 84466; 84484; 85025; 85045; 85610; 85730; 86850; 86900; 86920; 87040; 88305; 88312; 88342; 93005; 94799; 99284; C1729; J0696; J1756; J2001; J2250; J2353; J2354; J2370; J2405; J2543; J3010; J3411; J3430; J7030; J7050; P9016; P9017; Q9967; U0002

== ENCOUNTER → 2021-09-08 | Outpatient (CLI) | payer MEDICARE ==
[~2021-09-08] MED LIST changes: +ALBUMIN 25% 12.5GM 50ML 150 ML IV ONE; +INDERAL10 MG PO; +SODIUM CHLORIDE 0.9% 50ML 50 ML ONE
[2021-09-08 15:39] LABS: BODY FLUID APPEARANCE CLOUDY; BODY FLUID COLOR YELLOW; BODY FLUID TYPE PERITONEAL
[2021-09-08 15:40] LABS: RBC,BODY FLUID 1000 cells/uL; WBC,BODY FLUID 165 cells/uL
[2021-09-08 17:18] LABS: LYMPHOCYTES,BODY FLUID 21 %; MONO/MACROPHG,BODY FLUID 56 %; NEUTROPHILS,BODY FLUID 4 %; OTHER CELLS,BODY FLUID 19 %
== END ==
LOC: US 11:03
PROVIDERS: ATTEND Internal Medicine Gastroenterology
DX: R18.8 Other ascites (principal)
CPT/HCPCS: 36415; 49083; 87070; 87205; 88112; 88305; 89051

== ENCOUNTER 2021-09-25 11:08 | Emergency (ER) | payer MEDICARE ==
[~2021-09-25] VITALS: Ht 162.6 cm; Wt 62.6 kg
[~2021-09-25 11:08] MED LIST changes: -ALBUMIN 25% 12.5GM 50ML 200 ML IV ONE
[2021-09-25 12:08] LABS: BASOPHILS % 1.1 % (0.0-1.0); EOSINOPHILS # (AUTO) 0.1 (0.0-0.4); EOSINOPHILS % 3.3 % (0.0-6.0); HEMATOCRIT 35.1 % (38.2-49.6); HEMOGLOBIN 11.5 g/dL (14.0-18.0); MEAN CORPUSCULAR HEMOGLOBIN 30.2 pg (28-32); MEAN CORPUSCULAR HGB CONC 32.8 g/dL (31-35); MEAN CORPUSCULAR VOLUME 92.1 fL (81-99); MONOCYTES # (AUTO) 0.4 (0.2-0.8); MONOCYTES % 11.2 % (4.4-11.3); NEUTROPHILS # (AUTO) 2.1 (2.1-6.9); NEUTROPHILS % 57.1 % (38.7-80.0); PLATELET COUNT 116 x10e3/uL (140-360); RED BLOOD COUNT 3.81 x10e6/uL (4.3-5.7); RED CELL DISTRIBUTION WIDTH 16.5 % (11.7-14.4)
[2021-09-25 12:29] LABS: ALBUMIN 4.5 g/dL (3.5-5.0); ALBUMIN/GLOBULIN RATIO 1.4 (0.8-2.0); ANION GAP 13.6 mmol/L (8-16); CALCIUM 9.8 mg/dL (8.4-10.2); CREATININE, SERUM 0.62 mg/dL (0.72-1.25); POTASSIUM 3.6 mmol/L (3.5-5.1)
[2021-09-25 12:42] LABS: INR 1.13; PROTHROMBIN TIME 15.5 seconds (11.9-14.5)
[2021-09-25 12:43] LABS: PARTIAL THROMBOPLASTIN TIME 29.7 seconds (23.8-35.5)
== END 2021-09-25 13:55 | disposition home or self-care (01) ==
LOC: ER 12:07
DX: R07.9 Chest pain, unspecified (principal); R11.0 Nausea; K76.9 Liver disease, unspecified; F10.10 Alcohol abuse, uncomplicated; E78.00 Pure hypercholesterolemia, unspecified; F17.210 Nicotine dependence, cigarettes, uncomplicated
CPT/HCPCS: 36415; 71045; 80053; 84484; 85025; 85610; 85730; 93005; 99284; U0002

== ENCOUNTER → 2021-09-25 | Outpatient (CLI) | payer MEDICARE ==
[~2021-09-25] MED LIST changes: -ALBUMIN 25% 12.5GM 50ML 150 ML IV ONE; +ALBUMIN 25% 12.5GM 50ML 200 ML IV ONE; -SODIUM CHLORIDE 0.9% 50ML 50 ML ONE
[2021-09-25 09:59] LABS: BASOPHILS # (AUTO) 0.1 (0.0-0.1); BASOPHILS % 1.4 % (0.0-1.0); EOSINOPHILS # (AUTO) 0.1 (0.0-0.4); HEMOGLOBIN 12.4 g/dL (14.0-18.0); LYMPHOCYTES % 22.6 % (18.0-39.1); MEAN CORPUSCULAR HEMOGLOBIN 30.2 pg (28-32); MEAN CORPUSCULAR HGB CONC 32.6 g/dL (31-35); MEAN CORPUSCULAR VOLUME 92.5 fL (81-99); MONOCYTES # (AUTO) 0.4 (0.2-0.8); MONOCYTES % 9.9 % (4.4-11.3); NEUTROPHILS # (AUTO) 2.7 (2.1-6.9); NEUTROPHILS % 62.9 % (38.7-80.0); PLATELET COUNT 130 x10e3/uL (140-360); RED BLOOD COUNT 4.11 x10e6/uL (4.3-5.7); RED CELL DISTRIBUTION WIDTH 16.6 % (11.7-14.4)
[2021-09-25 10:18] LABS: INR 1.12; PROTHROMBIN TIME 15.4 seconds (11.9-14.5)
[2021-09-25 10:19] LABS: PARTIAL THROMBOPLASTIN TIME 28.1 seconds (23.8-35.5)
[2021-09-25 11:43] LABS: BODY FLUID APPEARANCE SL.CLOUDY; BODY FLUID COLOR YELLOW; BODY FLUID TYPE PERITONEAL
[2021-09-25 11:44] LABS: RBC,BODY FLUID 1000 cells/uL; WBC,BODY FLUID 308 cells/uL
[2021-09-25 12:53] LABS: LYMPHOCYTES,BODY FLUID 20 %; MONO/MACROPHG,BODY FLUID 44 %; NEUTROPHILS,BODY FLUID 36 %
== END ==
LOC: US 09:13
PROVIDERS: ATTEND Internal Medicine Gastroenterology
DX: R18.8 Other ascites (principal)
CPT/HCPCS: 36415; 49083; 85025; 85610; 85730; 87070; 87205; 88112; 88305; 89051; 93005

== ENCOUNTER → 2021-10-09 | Outpatient (CLI) | payer MEDICARE ==
[2021-10-09 15:14] LABS: BODY FLUID APPEARANCE SL.CLOUDY; BODY FLUID COLOR YELLOW; BODY FLUID TYPE PERITONEAL
[2021-10-09 15:15] LABS: WBC,BODY FLUID 444 cells/uL
[2021-10-09 15:17] LABS: RBC,BODY FLUID 1000 cells/uL
[2021-10-09 16:48] LABS: LYMPHOCYTES,BODY FLUID 34 %; MONO/MACROPHG,BODY FLUID 60 %; NEUTROPHILS,BODY FLUID 6 %
== END ==
LOC: US 12:15
PROVIDERS: ATTEND Internal Medicine Gastroenterology
DX: R18.8 Other ascites (principal)
CPT/HCPCS: 36415; 49083; 87070; 87205; 88112; 89051; C1729

== ENCOUNTER → 2021-10-29 | Outpatient (CLI) | payer MEDICARE | LOC: US 10:18 | PROVIDERS: ATTEND Internal Medicine Gastroenterology | DX: R18.8 Other ascites (principal) | CPT/HCPCS: 76705 ==

== ENCOUNTER → 2021-11-18 | Outpatient (CLI) | payer MEDICARE | LOC: US 11:57 | PROVIDERS: ATTEND Internal Medicine Gastroenterology | DX: K70.31 Alcoholic cirrhosis of liver with ascites (principal) | CPT/HCPCS: 76705 ==

== ENCOUNTER 2021-12-28 13:45 | Inpatient (IN) | payer MEDICARE ==
[~2021-12-28] VITALS: Ht 165.1 cm; Wt 63.7 kg
[~2021-12-28 13:45] MED LIST changes: +SODIUM CHLORIDE 0.9% 1000ML 1,000 ML IV SCH; +SODIUM CHLORIDE FLUSH 10 ML SYR IV PRN
[2021-12-28] MEDS ORDERED: ONDANSETRON HCL INJ 2MG/ML 2ML 2 MG/ML VIAL IV STA (14:04)
[2021-12-28] MEDS ORDERED: SODIUM CHLORIDE 0.9% 1000ML 1,000 ML IV ONE (14:15)
[2021-12-28 14:17] LABS: BASOPHILS % 0.5 % (0.0-1.0); EOSINOPHILS % 0.2 % (0.0-6.0); HEMATOCRIT 24.8 % (38.2-49.6); HEMOGLOBIN 7.9 g/dL (14.0-18.0); LYMPHOCYTES # (AUTO) 0.9 (1.0-3.2); LYMPHOCYTES % 14.2 % (18.0-39.1); MEAN CORPUSCULAR HEMOGLOBIN 31.2 pg (28-32); MEAN CORPUSCULAR HGB CONC 31.9 g/dL (31-35); MONOCYTES # (AUTO) 0.6 (0.2-0.8); MONOCYTES % 10.2 % (4.4-11.3); NEUTROPHILS # (AUTO) 4.7 (2.1-6.9); NEUTROPHILS % 74.3 % (38.7-80.0); PLATELET COUNT 126 x10e3/uL (140-360); RED BLOOD COUNT 2.53 x10e6/uL (4.3-5.7); RED CELL DISTRIBUTION WIDTH 14.4 % (11.7-14.4)
[2021-12-28 14:24] LABS: INR 1.28; PROTHROMBIN TIME 17.1 seconds (11.9-14.5)
[2021-12-28 14:25] LABS: PARTIAL THROMBOPLASTIN TIME 27.5 seconds (23.8-35.5)
[2021-12-28 14:29] LABS: LIPASE 18 U/L (8-78)
[2021-12-28 14:33] LABS: ALBUMIN 3.4 g/dL (3.5-5.0); ALBUMIN/GLOBULIN RATIO 1.1 (0.8-2.0); CALCIUM 8.4 mg/dL (8.4-10.2); CREATININE, SERUM 0.65 mg/dL (0.72-1.25)
[2021-12-28 14:42] LABS: AMPHETAMINES SCREEN,URINE NEGATIVE (NEGATIVE); BENZODIAZEPINES SCREEN,URINE NEGATIVE (NEGATIVE); CLARITY,URINE CLEAR (CLEAR); COLOR,URINE YELLOW (YELLOW); PHENCYCLIDINE SCREEN,URINE NEGATIVE (NEGATIVE)
[2021-12-28 14:44] LABS: LEUKOCYTE ESTERASE ,URINE NEGATIVE (NEGATIVE); NITRITE,URINE NEGATIVE (NEGATIVE); PROTEIN,URINE DIPSTICK NEGATIVE (NEGATIVE)
[2021-12-28 14:45] LABS: KETONES,URINE NEGATIVE (NEGATIVE); URINE UROBILINOGEN 1 mg/dL (0.2 - 1)
[2021-12-28 14:49] LABS: BACTERIA,URINE FEW /HPF; EPITHELIAL CELLS,URINE FEW /LPF; RBC,URINE 0-5 /HPF (0-5); WBC,URINE (MAN) 0-5 /HPF (0-5)
[2021-12-28] MEDS ORDERED: OCTREOTIDE ACETATE 0.05 MG/ML AMP IV SCH (17:30)
[2021-12-28] MEDS ORDERED: ONDANSETRON HCL INJ 2MG/ML 2ML 2 MG/ML VIAL IV PRN (17:45)
[2021-12-28] MEDS: OCTREOTIDE ACETATE 500 MCG in SODIUM CHLORIDE 0.9% 250ML 249 ML IV SCH (18:20)
[2021-12-28] MEDS ORDERED: HYDRALAZINE HCL 20 MG/ML VIAL IV PRN (19:00)
[2021-12-28] MEDS: SODIUM CHLORIDE 0.9% 1000ML 1,000 ML IV SCH (23:50)
[2021-12-29] VITALS (8 sets, daily range): BP systolic 100–141; BP diastolic 52–90
[2021-12-29] MEDS: SODIUM CHLORIDE 0.9% 1000ML 1,000 ML IV SCH ×3 (01:45→20:19)
[2021-12-29] MEDS: OCTREOTIDE ACETATE 500 MCG in SODIUM CHLORIDE 0.9% 250ML 249 ML IV SCH ×3 (03:45→23:45)
[2021-12-29] MEDS ORDERED: PHYTONADIONE 10 MG/ML AMP IV ONE (06:00)
[2021-12-29 06:02] LABS: BASOPHILS % 0.6 % (0.0-1.0); EOSINOPHILS # (AUTO) 0.1 (0.0-0.4); HEMATOCRIT 21.1 % (38.2-49.6); LYMPHOCYTES # (AUTO) 0.5 (1.0-3.2); LYMPHOCYTES % 15.5 % (18.0-39.1); MEAN CORPUSCULAR HEMOGLOBIN 32.2 pg (28-32); MEAN CORPUSCULAR HGB CONC 32.2 g/dL (31-35); MONOCYTES # (AUTO) 0.3 (0.2-0.8); NEUTROPHILS # (AUTO) 2.6 (2.1-6.9); NEUTROPHILS % 73.9 % (38.7-80.0); RED BLOOD COUNT 2.11 x10e6/uL (4.3-5.7); RED CELL DISTRIBUTION WIDTH 14.5 % (11.7-14.4)
[2021-12-29 06:15] LABS: HEMOGLOBIN 6.8 g/dL (14.0-18.0); PLATELET COUNT 92 x10e3/uL (140-360)
[2021-12-29 06:22] LABS: ALBUMIN/GLOBULIN RATIO 1.3 (0.8-2.0); ANION GAP 9.7 mmol/L (8-16); CALCIUM 7.7 mg/dL (8.4-10.2); CREATININE, SERUM 0.59 mg/dL (0.72-1.25); POTASSIUM 3.7 mmol/L (3.5-5.1)
[2021-12-29] MEDS ORDERED: SODIUM CHLORIDE 0.9% 250ML 250 ML IV ONE (06:30)
[2021-12-29 08:12] LABS: EOSINOPHILS % (MANUAL) 1 % (0-7); LYMPHOCYTES % (MANUAL) 20 % (19-48); MONOCYTES % (MANUAL) 3 % (3.4-9.0); NEUTROPHILS % (MANUAL) 75 % (40-74); PLATELET ESTIMATE MODERATELY DECREASED; PLATELET MORPHOLOGY COMMENT NORMAL
[2021-12-29 08:13] LABS: HYPOCHROMASIA SLIGHT; RBC MORPHOLOGY COMMENT ABNORMAL
[2021-12-29] MEDS ORDERED: POTASSIUM CHLO10 ME1 PO (10:40)
[2021-12-29] MEDS ORDERED: SPIRONOLACTONE25 MG PO (10:40)
[2021-12-29] MEDS ORDERED: HYDROCODON-ACE1 EA11 PO (10:40)
[2021-12-29] MEDS ORDERED: SODIUM CHLORIDE 0.9% 250ML 250 ML ONE (12:52)
[2021-12-29] MEDS: FUROSEMIDE 20 MG TAB PO SCH (17:00)
[2021-12-29] MEDS: PROPRANOLOL HCL 10 MG TAB PO SCH (17:00)
[2021-12-29] MEDS: LACTATED RINGER'S 1,000 ML INJ SCH (23:03)
[2021-12-29] MEDS ORDERED: LACTATED RINGER'S 1,000 ML ONE (23:05)
[2021-12-30] VITALS (8 sets, daily range): BP systolic 123–150; BP diastolic 65–74
[2021-12-30 06:17] LABS: BASOPHILS % 0.8 % (0.0-1.0); EOSINOPHILS # (AUTO) 0.1 (0.0-0.4); EOSINOPHILS % 3.9 % (0.0-6.0); HEMATOCRIT 27.4 % (38.2-49.6); HEMOGLOBIN 8.9 g/dL (14.0-18.0); LYMPHOCYTES # (AUTO) 0.6 (1.0-3.2); LYMPHOCYTES % 21.6 % (18.0-39.1); MEAN CORPUSCULAR HEMOGLOBIN 31.1 pg (28-32); MEAN CORPUSCULAR HGB CONC 32.5 g/dL (31-35); MEAN CORPUSCULAR VOLUME 95.8 fL (81-99); MONOCYTES # (AUTO) 0.3 (0.2-0.8); MONOCYTES % 11.4 % (4.4-11.3); NEUTROPHILS # (AUTO) 1.6 (2.1-6.9); NEUTROPHILS % 61.5 % (38.7-80.0); PLATELET COUNT 77 x10e3/uL (140-360); RED BLOOD COUNT 2.86 x10e6/uL (4.3-5.7); RED CELL DISTRIBUTION WIDTH 15.5 % (11.7-14.4)
[2021-12-30 06:46] LABS: ALBUMIN 2.8 g/dL (3.5-5.0); ALBUMIN/GLOBULIN RATIO 1.2 (0.8-2.0); ANION GAP 8.7 mmol/L (8-16); CALCIUM 7.4 mg/dL (8.4-10.2); CREATININE, SERUM 0.55 mg/dL (0.72-1.25); POTASSIUM 3.7 mmol/L (3.5-5.1)
[2021-12-30] MEDS ORDERED: PANTOPRAZOLE SOD 40 MG TABEC PO SCH (07:30)
[2021-12-30] MEDS ORDERED: SODIUM CHLORIDE 0.9% 250ML 250 ML ONE (08:12)
[2021-12-30] MEDS: PROPRANOLOL HCL 10 MG TAB PO SCH ×2 (08:36→17:00)
[2021-12-30] MEDS: FUROSEMIDE 20 MG TAB PO SCH ×2 (08:36→17:00)
[2021-12-30] MEDS: THIAMINE HCL 100 MG TAB PO SCH (09:00)
[2021-12-30] MEDS: FERROUS SULFATE 325 MG TAB PO SCH (09:00)
[2021-12-30] MEDS: FOLIC ACID 1 MG TAB PO SCH (09:00)
[2021-12-30] MEDS ORDERED: NON-FORMULARY MEDICATION ([Folic Acid] 1 MG) PO SCH (09:00)
[2021-12-30] MEDS: LACTULOSE SYRUP 20 GM/30 ML UDC PO SCH (09:00)
[2021-12-30] MEDS: OCTREOTIDE ACETATE 500 MCG in SODIUM CHLORIDE 0.9% 250ML 249 ML IV SCH ×2 (09:50→19:45)
[2021-12-30] MEDS: LACTATED RINGER'S 1,000 ML INJ SCH (12:40)
[2021-12-30] MEDS ORDERED: LIDOCAINE HCL 2% LOCAL INJ 5 ML SDV VIAL INJ ONE (13:04)
[2021-12-30] MEDS ORDERED: PROPOFOL IV EMULSION 10 MG/ML 20 ML VIAL ONE (13:04)
[2021-12-30] MEDS ORDERED: FENTANYL CITRATE/PF 100MCG/2 ML INJ ONE (13:18)
[2021-12-30] MEDS: CARBAMIDE PEROXIDE 15 ML BTL OT SCH (17:00)
[2021-12-31] VITALS: BP_SYST 109; BP_SYST 117; BP_DIAS 46; BP_DIAS 60
[2021-12-31] MEDS: LACTATED RINGER'S 1,000 ML INJ SCH (01:40)
[2021-12-31 04:00] VITALS: BP 128/69
[2021-12-31] MEDS: OCTREOTIDE ACETATE 500 MCG in SODIUM CHLORIDE 0.9% 250ML 249 ML IV SCH (05:14)
[2021-12-31 08:30] VITALS: BP 128/73
[2021-12-31 08:32] VITALS: BP 128/73
[2021-12-31] MEDS: FUROSEMIDE 20 MG TAB PO SCH (08:43)
[2021-12-31] MEDS: FERROUS SULFATE 325 MG TAB PO SCH (08:43)
[2021-12-31] MEDS: FOLIC ACID 1 MG TAB PO SCH (08:43)
[2021-12-31] MEDS: LACTULOSE SYRUP 20 GM/30 ML UDC PO SCH (08:45)
[2021-12-31] MEDS: THIAMINE HCL 100 MG TAB PO SCH (08:45)
[2021-12-31] MEDS: CARBAMIDE PEROXIDE 15 ML BTL OT SCH (08:47)
[2021-12-31] MEDS ORDERED: PROPRANOLOL HCL 10 MG TAB PO SCH (09:00)
[2021-12-31 11:30] VITALS: BP 103/70
== END 2021-12-31 12:34 | disposition home or self-care (01) | DRG 433 ==
LOC: ER 14:05 → ERHOLD 17:36 → MED/SURG 23:04
PROVIDERS: ADMIT Internal Medicine; ATTEND Internal Medicine
PROC: 30233N1 Transfusion of Nonautologous Red Blood Cells into Peripheral Vein, Percutaneous Approach (ICD-10-PCS; 2021-12-29)
PROC: 0DJ08ZZ Inspection of Upper Intestinal Tract, Via Natural or Artificial Opening Endoscopic (ICD-10-PCS; principal; 2021-12-30 18:02)
DX: K70.30 Alcoholic cirrhosis of liver without ascites (principal); I85.10 Secondary esophageal varices without bleeding; K76.6 Portal hypertension; D62 Acute posthemorrhagic anemia; D68.4 Acquired coagulation factor deficiency; D64.9 Anemia, unspecified; R11.0 Nausea; I25.10 Atherosclerotic heart disease of native coronary artery without angina pectoris; F10.20 Alcohol dependence, uncomplicated; K31.89 Other diseases of stomach and duodenum; E78.5 Hyperlipidemia, unspecified; F17.200 Nicotine dependence, unspecified, uncomplicated; Z20.822 Contact with and (suspected) exposure to COVID-19; R00.0 Tachycardia, unspecified; N20.0 Calculus of kidney; Z95.5 Presence of coronary angioplasty implant and graft; I10 Essential (primary) hypertension
CPT/HCPCS: 36415; 43239; 71045; 74176; 80053; 80307; 81001; 83690; 84443; 84484; 85025; 85610; 85730; 86850; 86900; 86920; 93005; 94799; 99284; J2001; J2353; J2354; J2405; J3010; J3411; J3430; J7030; J7050; J7121; P9016

== ENCOUNTER 2022-02-17 23:35 | Inpatient (IN) | payer MEDICARE ==
[~2022-02-17] VITALS: Ht 165.1 cm; Wt 66.2 kg
[~2022-02-17 23:35] MED LIST changes: +HYDROCODON-ACE1 EA11 PO; +POTASSIUM CHLO10 ME1 PO; -SODIUM CHLORIDE 0.9% 1000ML 1,000 ML IV SCH; -SODIUM CHLORIDE FLUSH 10 ML SYR IV PRN
[2022-02-18] VITALS (12 sets, daily range): BP systolic 62–126; BP diastolic 48–94
[2022-02-18] MEDS ORDERED: OCTREOTIDE ACETATE 500 MCG in SODIUM CHLORIDE 0.9% 250ML 250 ML IV SCH (00:15)
[2022-02-18] MEDS ORDERED: OCTREOTIDE ACETATE 0.05 MG/ML AMP IV SCH (00:15)
[2022-02-18 00:20] LABS: BASOPHILS % 0.3 % (0.0-1.0); HEMATOCRIT 25.1 % (38.2-49.6); HEMOGLOBIN 7.7 g/dL (14.0-18.0); LYMPHOCYTES # (AUTO) 1.1 (1.0-3.2); LYMPHOCYTES % 15.2 % (18.0-39.1); MEAN CORPUSCULAR HEMOGLOBIN 26.6 pg (28-32); MEAN CORPUSCULAR HGB CONC 30.7 g/dL (31-35); MEAN CORPUSCULAR VOLUME 86.9 fL (81-99); MONOCYTES # (AUTO) 0.6 (0.2-0.8); MONOCYTES % 8.7 % (4.4-11.3); NEUTROPHILS # (AUTO) 5.3 (2.1-6.9); NEUTROPHILS % 75.5 % (38.7-80.0); PLATELET COUNT 183 x10e3/uL (140-360); RED BLOOD COUNT 2.89 x10e6/uL (4.3-5.7); RED CELL DISTRIBUTION WIDTH 15.1 % (11.7-14.4)
[2022-02-18] MEDS ORDERED: ONDANSETRON HCL INJ 2MG/ML 2ML 2 MG/ML VIAL IV STA (00:21)
[2022-02-18 00:27] LABS: INR 1.44; PROTHROMBIN TIME 18.7 seconds (11.9-14.5)
[2022-02-18 00:38] LABS: ALBUMIN 3.1 g/dL (3.5-5.0); ALBUMIN/GLOBULIN RATIO 1.1 (0.8-2.0); CALCIUM 8.5 mg/dL (8.4-10.2); CREATININE, SERUM 0.69 mg/dL (0.72-1.25)
[2022-02-18 00:50] LABS: CREATINE KINASE 25 IU/L (30-200)
[2022-02-18] MEDS ORDERED: ONDANSETRON HCL INJ 2MG/ML 2ML 2 MG/ML VIAL IV PRN (01:00)
[2022-02-18] MEDS ORDERED: SODIUM CHLORIDE 0.9% 250ML 250 ML ONE ×3 (01:47→16:56)
[2022-02-18] MEDS: SODIUM CHLORIDE 0.9% 1000ML 1,000 ML IV SCH ×2 (06:51→09:37)
[2022-02-18 08:24] LABS: INR 1.35; PROTHROMBIN TIME 17.8 seconds (11.9-14.5)
[2022-02-18 08:25] LABS: ALBUMIN 2.8 g/dL (3.5-5.0); ALBUMIN/GLOBULIN RATIO 0.9 (0.8-2.0); ANION GAP 8.8 mmol/L (8-16); CALCIUM 7.7 mg/dL (8.4-10.2); CREATININE, SERUM 0.56 mg/dL (0.72-1.25); PARTIAL THROMBOPLASTIN TIME 28.4 seconds (23.8-35.5); POTASSIUM 3.8 mmol/L (3.5-5.1)
[2022-02-18 08:36] LABS: BASOPHILS % 0.4 % (0.0-1.0); EOSINOPHILS % 0.2 % (0.0-6.0); HEMOGLOBIN 9.5 g/dL (14.0-18.0); LYMPHOCYTES % 19.2 % (18.0-39.1); MEAN CORPUSCULAR HEMOGLOBIN 28.3 pg (28-32); MEAN CORPUSCULAR HGB CONC 32.8 g/dL (31-35); MEAN CORPUSCULAR VOLUME 86.3 fL (81-99); MONOCYTES # (AUTO) 0.6 (0.2-0.8); MONOCYTES % 10.9 % (4.4-11.3); NEUTROPHILS # (AUTO) 3.6 (2.1-6.9); NEUTROPHILS % 68.9 % (38.7-80.0); RED BLOOD COUNT 3.36 x10e6/uL (4.3-5.7); RED CELL DISTRIBUTION WIDTH 14.4 % (11.7-14.4)
[2022-02-18 08:38] LABS: PLATELET COUNT 114 x10e3/uL (140-360)
[2022-02-18] MEDS ORDERED: OCTREOTIDE ACETATE 500 MCG in SODIUM CHLORIDE 0.9% 250ML 249 ML IV SCH (12:00)
[2022-02-18] MEDS ORDERED: OCTREOTIDE ACETATE 1 ML ONE (12:06)
[2022-02-18] MEDS ORDERED: HYDROCODONE/APAP 5MG-325MG TAB PO PRN (15:00)
[2022-02-18 15:35] LABS: BASOPHILS # (AUTO) 0.1 (0.0-0.1); BASOPHILS % 0.3 % (0.0-1.0); EOSINOPHILS # (AUTO) 0.1 (0.0-0.4); EOSINOPHILS % 0.9 % (0.0-6.0); HEMATOCRIT 22.2 % (38.2-49.6); LYMPHOCYTES % 34.9 % (18.0-39.1); MEAN CORPUSCULAR HEMOGLOBIN 28.2 pg (28-32); MEAN CORPUSCULAR HGB CONC 30.2 g/dL (31-35); MEAN CORPUSCULAR VOLUME 93.3 fL (81-99); MONOCYTES # (AUTO) 0.6 (0.2-0.8); MONOCYTES % 4.3 % (4.4-11.3); NEUTROPHILS # (AUTO) 8.5 (2.1-6.9); NEUTROPHILS % 59.2 % (38.7-80.0); PLATELET COUNT 137 x10e3/uL (140-360); RED BLOOD COUNT 2.38 x10e6/uL (4.3-5.7)
[2022-02-18 15:38] LABS: HEMOGLOBIN 6.7 g/dL (14.0-18.0)
[2022-02-18 15:52] LABS: ANION GAP 11.6 mmol/L (8-16); CALCIUM 7.2 mg/dL (8.4-10.2); CREATININE, SERUM 0.64 mg/dL (0.72-1.25); POTASSIUM 3.6 mmol/L (3.5-5.1)
[2022-02-18 15:58] LABS: INR 1.76; PROTHROMBIN TIME 21.9 seconds (11.9-14.5)
[2022-02-18 15:59] LABS: PARTIAL THROMBOPLASTIN TIME 32.7 seconds (23.8-35.5)
[2022-02-18] MEDS ORDERED: SODIUM CHLORIDE 0.9% 250ML 250 ML IV ONE ×2 (16:00→17:15)
[2022-02-18] MEDS ORDERED: NOREPINEPHRINE 8 MG/D5W 250 ML 250 ML IV SCH (16:15)
[2022-02-18] MEDS ORDERED: PROPRANOLOL HCL 10 MG TAB PO SCH (17:00)
[2022-02-19] MEDS ORDERED: LACTULOSE SYRUP 20 GM/30 ML UDC PO SCH (09:00)
== END 2022-02-18 19:29 | disposition expired | DRG 432 ==
LOC: ER 23:56 → ERHOLD 02-18 00:51 → MED/SURG 02-18 13:19 → ICU 02-18 15:40
PROVIDERS: ADMIT Internal Medicine; ATTEND Internal Medicine
PROC: 02HV33Z Insertion of Infusion Device into Superior Vena Cava, Percutaneous Approach (ICD-10-PCS; principal; 2022-02-18)
PROC: 30243N1 Transfusion of Nonautologous Red Blood Cells into Central Vein, Percutaneous Approach (ICD-10-PCS; 2022-02-18)
DX: K70.30 Alcoholic cirrhosis of liver without ascites (principal); I85.11 Secondary esophageal varices with bleeding; D62 Acute posthemorrhagic anemia; D68.4 Acquired coagulation factor deficiency; R57.8 Other shock; I86.4 Gastric varices; E11.9 Type 2 diabetes mellitus without complications; I25.10 Atherosclerotic heart disease of native coronary artery without angina pectoris; I10 Essential (primary) hypertension; D69.6 Thrombocytopenia, unspecified; R41.0 Disorientation, unspecified; F10.10 Alcohol abuse, uncomplicated; Z66 Do not resuscitate; Z82.49 Family history of ischemic heart disease and other diseases of the circulatory system; Z95.5 Presence of coronary angioplasty implant and graft
CPT/HCPCS: 0223U; 36415; 71045; 80048; 80053; 82550; 82553; 82948; 84484; 85025; 85610; 85730; 86850; 86900; 86920; 87040; 93005; 94799; 99284; J0696; J2353; J2354; J2405; J7030; J7050; P9016